=== PATIENT | male | born 1965 | race Caucasian/White ===

== ENCOUNTER 2018-05-02 11:36 | Emergency (ER) | payer OTHER ==
[2018-05-02] MEDS ORDERED: BISACODYL E.C. 5 MG TAB PO ONE (13:59)
[2018-05-02 14:20] LABS: Absolute Lymphocytes (CBC) 2.5 K/uL (0.7-4.9); Absolute Monocytes 0.6 K/uL (0.1-1.3); Absolute Neutrophil 2.9 K/uL (1.8-8.0); Basophils % 0.8 % (0-1.3); Eosinophils % 0.4 % (0-4.4); Hematocrit 30.5 % (39.6-49.0); Lymphocytes % 42.1 % (15.3-44.8); MCH 20.8 pg (27.0-35.0); MCV 68.4 fL (80-100); MPV 7.2 fL (7.6-11.3); Monocytes % 9.5 % (3.3-12.3); RBC Red Blood Cell Count 4.46 M/uL (4.33-5.43)
[2018-05-02 14:29] LABS: Potassium 3.8 mmol/L (3.5-5.1)
--- NOTE | 2018-05-02 15:15 | ER ---
Nurse's Notes [facility] Name: Kraig Weston Jr Age: 52 yrs Sex: Male : 1965 Arrival Date: 05/02/2018 Time: 11:39 Bed 23 Private MD: Diagnosis: Constipation, unspecified;Anemia, unspecified Presentation: 05/02 11:44 Presenting complaint: Sent by Dr. Wills for HBG 8.7. Also s/o Constipation x 6 days, hb N/V x 2 days, not tolerating liquids/meds today. Transition of care: patient was not received from another setting of care. Onset of symptoms was May 02, 2018. Care prior to arrival: None. 11:44 Method Of Arrival: Wheelchair hb 11:44 Acuity: JERROD 3 hb 13:00 Risk Assessment: Do you want to hurt yourself or someone else? Patient reports no ss desire to harm self or others. Initial Sepsis Screen: Does the patient meet any 2 criteria? No. Patient's initial sepsis screen is negative. Does the patient have a suspected source of infection? No. Patient's initial sepsis screen is negative. Historical: - Allergies: 11:48 No Known Allergies; hb - PMHx: 11:48 Anxiety; Cerebral Palsy; Depression; epilepsy; GERD; High Cholesterol; Hypertension; hb - PSHx: 11:48 None; hb - Immunization history:: Adult Immunizations up to date. - Social history:: Smoking status: Patient/guardian denies using tobacco. - Ebola Screening: : No symptoms or risks identified at this time. Screenin:45 Abuse screen: Denies threats or abuse. Denies injuries from another. Nutritional ss screening: No deficits noted. Tuberculosis screening: No symptoms or risk factors identified. Never had TB. Fall Risk None identified. Assessment: 13:30 General: Appears uncomfortable, Behavior is cooperative, Pt has a history of CP and ss behavior is "baseline/ normal". Pain: Pain currently is 5 out of 10 on a pain scale. Neuro: Level of Consciousness is awake, alert, obeys commands. Cardiovascular: Capillary refill < 3 seconds is brisk in bilateral toes Patient's skin is warm and dry. Respiratory: Airway is patent Respiratory effort is even, unlabored, Respiratory pattern is regular, symmetrical. GI: Bowel sounds hypoactive in right upper quadrant, left upper quadrant, right lower quadrant and left lower quadrant : No signs and/or symptoms were reported regarding the genitourinary system. EENT: Nares are clear Oral mucosa is moist. Derm: Skin is intact, is healthy with good turgor, Skin is dry, Skin is pink, warm \\T\\ dry. normal. 14:00 Reassessment: Pt had large BM in bedside commode. Caregiver at bedside, Dr. Henson notified. 15:00 Reassessment: Pt had large BM on bedside commode, cargiver remains at bedside. Vital Signs: 11:47 BP 143 / 100; Pulse 87; Resp 16; Temp 97.8; Pulse Ox 100% on R/A; Pain 3/10; hb 11:47 Ken-Boss (FACES) hb ED Course: 11:39 Patient arrived in ED. mr 11:47 Triage completed. hb 11:47 Arm band placed on. hb 12:52 Jenae Guerrier, DAMIAN is Primary Nurse. ss 13:04 Manish Henson MD is Attending Physician. kdr 13:45 Patient has correct armband on for positive identification. Bed in low position. Call ss light in reach. Adult w/ patient. 14:03 Inserted saline lock: 22 gauge in right antecubital area, using aseptic technique. ss Blood collected. 15:09 Manish Henson MD is Referral Physician. kdr 15:41 Referral Physician role handed off by Mansih Henson MD kdr 15:46 No provider procedures requiring assistance completed. intact, bleeding controlled, No ss redness/swelling at site. Pressure dressing applied. Administered Medications: 14:00 Drug: Dulcolax Delayed Release Tablet 5 mg {Note: Pt vomited medication up immediately, ss Dr. Henson notified. .} Route: PO; Outcome: 15:10 Discharge ordered by . kdr 15:46 Discharged to home via wheelchair, with family. 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 medication usage, Demonstrated understanding of instructions, follow-up care, medications, Prescriptions given X 1. 15:49 Patient left the ED. Signatures: Manish Henson MD MD kdr RiverAneta carter mr Jenae Guerrier, RN RN ss Lewis, Karie, RN RN hb
[2018-05-02 15:16] LABS: Anisocytosis 1+; Blood Morphology Comment NOTED (NOT SEEN); Hypochromasia 1+; Platelet Estimate ADEQ; Urine White Blood Cell Casts OK
--- NOTE | 2018-05-02 15:16 | EDPHYS ---
Physician Documentation [facility] Name: Kraig Weston Jr Age: 52 yrs Sex: Male : 1965 Arrival Date: 05/02/2018 Time: 11:39 Bed 23 Private MD: ED Physician Manish Henson HPI: 05/02 17:51 This 52 yrs old Male presents to ER via Wheelchair with complaints of kdr Abnormal Lab Results, Constipation, Vomiting. 17:51 Alba patient was brought here because he has not had a BM in a week or more. He also had kdr blood work recently that showed a Hgb of 8.7. He also had x-ray that showed copious stool with possible early . Onset: The symptoms/episode began/occurred at an unknown time. Severity of symptoms: At their worst the symptoms were mild in the emergency department the symptoms are unchanged. The patient has not experienced similar symptoms in the past. The patient has not recently seen a physician. Historical: - Allergies: 11:48 No Known Allergies; hb - PMHx: 11:48 Anxiety; Cerebral Palsy; Depression; epilepsy; GERD; High Cholesterol; Hypertension; hb - PSHx: 11:48 None; hb - Immunization history:: Adult Immunizations up to date. - Social history:: Smoking status: Patient/guardian denies using tobacco. - Ebola Screening: : No symptoms or risks identified at this time. ROS: 17:51 Constitutional: Negative for fever, chills, and weight loss, Eyes: Negative for injury, kdr pain, redness, and discharge, Neck: Negative for injury, pain, and swelling, Cardiovascular: Negative for chest pain, palpitations, and edema, Respiratory: Negative for shortness of breath, cough, wheezing, and pleuritic chest pain, Abdomen/GI: Negative for abdominal pain, nausea, vomiting, diarrhea, and constipation, Back: Negative for injury and pain, : Negative for injury, bleeding, discharge, and swelling, MS/Extremity: Negative for injury and deformity, Skin: Negative for injury, rash, and discoloration, Neuro: Negative for headache, weakness, numbness, tingling, and seizure activity. Psych: Negative for depression, anxiety, suicide ideation, homicidal ideation, and hallucinations, Allergy/Immunology: Negative for hives, rash, and allergies, Endocrine: Negative for neck swelling, polydipsia, polyuria, polyphagia, and marked weight changes, Hematologic/Lymphatic: Negative for swollen nodes, abnormal bleeding, and unusual bruising. Exam: 17:51 Constitutional: This is a well developed, well nourished patient who is awake, alert, kdr and in no acute distress. Head/Face: Normocephalic, atraumatic. Eyes: Pupils equal round and reactive to light, extra-ocular motions intact. Lids and lashes normal. Conjunctiva and sclera are non-icteric and not injected. Cornea within normal limits. Periorbital areas with no swelling, redness, or edema. Neck: Trachea midline, no thyromegaly or masses palpated, and no cervical lymphadenopathy. Supple, full range of motion without nuchal rigidity, or vertebral point tenderness. No Meningismus. Chest/axilla: Normal chest wall appearance and motion. Nontender with no deformity. No lesions are appreciated. Cardiovascular: Regular rate and rhythm with a normal S1 and S2. No gallops, murmurs, or rubs. Normal PMI, no JVD. No pulse deficits. Respiratory: Lungs have equal breath sounds bilaterally, clear to auscultation and percussion. No rales, rhonchi or wheezes noted. No increased work of breathing, no retractions or nasal flaring. Back: No spinal tenderness. No costovertebral tenderness. Full range of motion. Skin: Warm, dry with normal turgor. Normal color with no rashes, no lesions, and no evidence of cellulitis. MS/ Extremity: Pulses equal, no cyanosis. Neurovascular intact. Full, normal range of motion. Neuro: Awake and alert, GCS 15, oriented to person, place, time, and situation. Cranial nerves II-XII grossly intact. Motor strength 5/5 in all extremities. Sensory grossly intact. Cerebellar exam normal. Normal gait. Psych: Awake, alert, with orientation to person, place and time. Behavior, mood, and affect are within normal limits. 17:51 Abdomen/GI: Inspection: abdomen appears normal, Bowel sounds: active, Palpation: soft, nontender, Rectal exam: Prostate: normal, rectal tone normal, hemorrhoid(s), are not appreciated, mass, is not appreciated, swelling, is not appreciated, tenderness, is not appreciated, fecal impaction, that is severe. Vital Signs: 11:47 BP 143 / 100; Pulse 87; Resp 16; Temp 97.8; Pulse Ox 100% on R/A; Pain 3/10; hb 11:47 Ken-Boss (FACES) hb Procedures: 17:51 Fecal disimpaction: digital disimpaction was performed, with a moderate amount of stool kdr expressed. The patient tolerated the intervention well. MDM: 15:10 Patient medically screened. kdr 18:01 Data reviewed: vital signs, nurses notes, lab test result(s), EKG, radiologic studies. kdr 05/02 13:47 Order name: CBC with Diff kdr 05/02 13:47 Order name: Chem 7 kdr 05/02 13:47 Order name: Type And Screen; Complete Time: 15:40 kdr 05/02 13:48 Order name: CBC with Automated Diff; Complete Time: 15:40 EDMS 05/02 13:48 Order name: Basic Metabolic Panel; Complete Time: 15:09 EDMS 05/02 14:30 Order name: CBC Smear Scan; Complete Time: 15:40 EDMS 05/02 15:11 Order name: ABO/RH no charge; Complete Time: 15:40 EDMS Administered Medications: 14:00 Drug: Dulcolax Delayed Release Tablet 5 mg {Note: Pt vomited medication up immediately, ss Dr. Henson notified. .} Route: PO; Disposition: 05/02/18 15:10 Discharged to Home. Impression: Constipation, unspecified, Anemia, unspecified. - Condition is Stable. - Discharge Instructions: Anemia, Nonspecific, High-Fiber Diet, Constipation, Adult, [id number]. - Prescriptions for Miralax 17 gram/dose Oral - take 1 packet by ORAL route once daily Daily dilute powder in 8 ounces of water or juice; 1 box. - Medication Reconciliation Form, Thank You Letter form. - Follow up: Manish Henson MD; When: 24 Hours; Reason: If symptoms return, Further diagnostic work-up, Recheck today's complaints, Continuance of care, Re-evaluation by your physician. Follow up: Private Physician; When: 2 - 3 days; Reason: If symptoms return, Further diagnostic work-up, Recheck today's complaints, Continuance of care, Re-evaluation by your physician. - Problem is new. - Symptoms have improved. Signatures: Dispatcher [employer] EDMS Manish Henson MD MD kdr Jenae Guerrier, DAMIAN RN ss Karie Lewis, RN RN Corrections: (The following items were deleted from the chart) 15:41 15:10 05/02/2018 15:10 Discharged to Home. Impression: Constipation, unspecified; kdr Anemia, unspecified. Condition is Stable. Forms are Medication Reconciliation Form, Thank You Letter, Antibiotic Education, Prescription Opioid Use. Follow up: Dr. Manish Henson; When: 24 Hours; Reason: If symptoms return, Further diagnostic work-up, Recheck today's complaints, Continuance of care, Re-evaluation by your physician. Problem is new. Symptoms have improved. kdr 15:49 15:41 05/02/2018 15:10 Discharged to Home. Impression: Constipation, unspecified; ss Anemia, unspecified. Condition is Stable. Discharge Instructions: Anemia, Nonspecific, High-Fiber Diet, Constipation, Adult, [id number]. Prescriptions for Miralax 17 gram/dose Oral - take 1 packet by ORAL route once daily Daily dilute powder in 8 ounces of water or juice; 1 box. and Forms are Medication Reconciliation Form, Thank You Letter, Antibiotic Education, Prescription Opioid Use. Follow up: Private Physician; When: 2 - 3 days; Reason: If symptoms return, Further diagnostic work-up, Recheck today's complaints, Continuance of care, Re-evaluation by your physician. Problem is new. Symptoms have improved. kdr
[2018-05-02 15:17] LABS: Burr Cells 1+
== END 2018-05-02 15:49 | disposition home or self-care (01) ==
LOC: ER 11:36
DX: K59.00 Constipation, unspecified (principal); D64.9 Anemia, unspecified; G80.9 Cerebral palsy, unspecified; G40.909 Epilepsy, unspecified, not intractable, without status epilepticus; E78.00 Pure hypercholesterolemia, unspecified; I10 Essential (primary) hypertension; K21.9 Gastro-esophageal reflux disease without esophagitis; F32.9 Major depressive disorder, single episode, unspecified; F41.9 Anxiety disorder, unspecified
CPT/HCPCS: 36415; 80048; 85025; 86850; 86900; 86901; 99284

== ENCOUNTER 2018-05-09 11:25 | Emergency (ER) | payer OTHER ==
[2018-05-09] MEDS ORDERED: NA CHLORIDE 0.9% 1,000 ML ONE (13:27)
[2018-05-09] MEDS ORDERED: ONDANSETRON 4 MG/2 ML VIAL ONE (13:27)
[2018-05-09 14:02] LABS: Protime INR 1.01
[2018-05-09 14:16] LABS: Absolute Lymphocytes (CBC) 1.9 K/uL (0.7-4.9); Absolute Monocytes 0.5 K/uL (0.1-1.3); Absolute Neutrophil 2.5 K/uL (1.8-8.0); Basophils % 0.5 % (0-1.3); Eosinophils % 0.6 % (0-4.4); Hematocrit 26.2 % (39.6-49.0); Lymphocytes % 38.7 % (15.3-44.8); MCH 20.8 pg (27.0-35.0); MCV 69.1 fL (80-100); MPV 7.2 fL (7.6-11.3); Monocytes % 9.7 % (3.3-12.3); RBC Red Blood Cell Count 3.78 M/uL (4.33-5.43)
[2018-05-09 14:23] LABS: ALT/SGPT 50 U/L (12-78); AST/SGOT 22 U/L (15-37); Albumin 3.4 g/dL (3.4-5.0); Alkaline Phosphatase 113 U/L (45-117); BUN Blood Urea Nitrogen 30 mg/dL (7-18); Bicarbonate 31 mmol/L (21-32); Bilirubin Direct < 0.1 mg/dL (0-0.2); Bilirubin Total 0.1 mg/dL (0.2-1.0); Glucose Level 87 mg/dL (74-106); Lipase 131 U/L (73-393); Magnesium 2.3 mg/dL (1.8-2.4); NT PRO-BNP 56 pg/mL (<125); Potassium 3.9 mmol/L (3.5-5.1); Protein, Total 7.3 g/dL (6.4-8.2); Sodium Level 148 mmol/L (136-145); Troponin (Emerg Dept Use Only) < 0.02 ng/mL (0.0-0.045)
[2018-05-09] MEDS ORDERED: PANTOPRAZOLE 40 MG INJ ONE (14:31)
--- NOTE | 2018-05-09 14:36 | EDPHYS ---
Physician Documentation [facility] Name: Kraig Weston Jr Age: 52 yrs Sex: Male : 1965 Arrival Date: 05/09/2018 Time: 11:29 Bed 15 Private MD: out of town, doctor ED Physician Morales Roberts HPI: 05/09 13:10 This 52 yrs old Male presents to ER via Wheelchair with complaints of UNABLE satish TO EAT. Historical: - Allergies: 11:50 No Known Allergies; sv - PMHx: 11:50 Anxiety; Cerebral Palsy; Depression; epilepsy; GERD; High Cholesterol; Hypertension; sv - PSHx: 11:50 None; sv - Immunization history:: Adult Immunizations up to date. - Social history:: Smoking status: Patient/guardian denies using tobacco. - Ebola Screening: : No symptoms or risks identified at this time. - Family history:: not pertinent. ROS: 13:11 Constitutional: Negative for fever, chills, and weight loss, Eyes: Negative for injury, satish pain, redness, and discharge, ENT: Negative for injury, pain, and discharge, Neck: Negative for injury, pain, and swelling, Cardiovascular: Negative for chest pain, palpitations, and edema, Respiratory: Negative for shortness of breath, cough, wheezing, and pleuritic chest pain, Back: Negative for injury and pain, : Negative for injury, bleeding, discharge, and swelling, MS/Extremity: Negative for injury and deformity, Skin: Negative for injury, rash, and discoloration, Neuro: Negative for headache, weakness, numbness, tingling, and seizure, Psych: Negative for depression, anxiety, suicide ideation, homicidal ideation, and hallucinations, Allergy/Immunology: Negative for hives, rash, and allergies, Endocrine: Negative for neck swelling, polydipsia, polyuria, polyphagia, and marked weight changes, Hematologic/Lymphatic: Negative for swollen nodes, abnormal bleeding, and unusual bruising. 13:11 Abdomen/GI: Positive for nausea and vomiting. Exam: 13:11 Constitutional: This is a well developed, well nourished patient who is awake, alert, satish and in no acute distress. Head/Face: Normocephalic, atraumatic. Eyes: Pupils equal round and reactive to light, extra-ocular motions intact. Lids and lashes normal. Conjunctiva and sclera are non-icteric and not injected. Cornea within normal limits. Periorbital areas with no swelling, redness, or edema. ENT: Nares patent. No nasal discharge, no septal abnormalities noted. Tympanic membranes are normal and external auditory canals are clear. Oropharynx with no redness, swelling, or masses, exudates, or evidence of obstruction, uvula midline. Mucous membranes moist. Neck: Trachea midline, no thyromegaly or masses palpated, and no cervical lymphadenopathy. Supple, full range of motion without nuchal rigidity, or vertebral point tenderness. No Meningismus. Chest/axilla: Normal chest wall appearance and motion. Nontender with no deformity. No lesions are appreciated. Cardiovascular: Regular rate and rhythm with a normal S1 and S2. No gallops, murmurs, or rubs. Normal PMI, no JVD. No pulse deficits. Respiratory: Lungs have equal breath sounds bilaterally, clear to auscultation and percussion. No rales, rhonchi or wheezes noted. No increased work of breathing, no retractions or nasal flaring. Back: No spinal tenderness. No costovertebral tenderness. Full range of motion. Male : Normal genitalia with no discharge or lesions. Skin: Warm, dry with normal turgor. Normal color with no rashes, no lesions, and no evidence of cellulitis. MS/ Extremity: Pulses equal, no cyanosis. Neurovascular intact. Full, normal range of motion. Neuro: Awake and alert, GCS 15, oriented to person, place, time, and situation. Cranial nerves II-XII grossly intact. Motor strength 5/5 in all extremities. Sensory grossly intact. Cerebellar exam normal. Normal gait. Psych: Awake, alert, with orientation to person, place and time. Behavior, mood, and affect are within normal limits. 13:11 Abdomen/GI: Inspection: abdomen appears normal, Bowel sounds: normal, Palpation: soft, nontender, Liver: no appreciated palpable abnormalities, Hernia: not appreciated. 14:38 Abdomen/GI: Rectal exam: rectal tone normal, Stool: guaiac positive, hemorrhoid(s), are satish not appreciated, mass, is not appreciated, swelling, is not appreciated, tenderness, is not appreciated, the exam is chaperoned by a family member. Vital Signs: 11:50 BP 119 / 68; Pulse 90; Resp 18; Temp 98.8; Pulse Ox 100% ; sv 12:21 Weight 51.26 kg; em 12:30 BP 105 / 90; Pulse 70; Resp 19; Pulse Ox 99% on R/A; Pain 0/10; em 14:05 BP 107 / 65; Pulse 61; Resp 18; Pulse Ox 100% on R/A; em 15:00 BP 112 / 68; Pulse 67; Resp 18; Pulse Ox 99% on R/A; em 16:15 BP 101 / 71; Pulse 73; Resp 16; Pulse Ox 100% on R/A; em 17:00 BP 109 / 62; Pulse 68; Resp 18; Pulse Ox 98% on R/A; em 18:27 BP 124 / 78; Pulse 79; Resp 16; Pulse Ox 99% on R/A; em MDM: 12:20 Patient medically screened. [facility] 13:12 Data reviewed: vital signs, nurses notes, lab test result(s), EKG, radiologic studies, satish plain films. 05/09 13:09 Order name: Basic Metabolic Panel; Complete Time: 14:24 [facility] 05/09 13:09 Order name: CBC with Diff; Complete Time: 15:03 [facility] 05/09 13:09 Order name: LFT's; Complete Time: 14:24 [facility] 05/09 13:09 Order name: Magnesium; Complete Time: 14:24 [facility] 05/09 13:09 Order name: NT PRO-BNP; Complete Time: 14:24 [facility] 05/09 13:09 Order name: PT-INR; Complete Time: 14:24 [facility] 05/09 13:09 Order name: Troponin (emerg Dept Use Only); Complete Time: 14:24 [facility] 05/09 13:09 Order name: Lipase; Complete Time: 14:24 [facility] 05/09 13:09 Order name: Abdomen Acute Series XRAY; Complete Time: 15:13 satish 05/09 13:13 Order name: Procalcitonin [facility] 05/09 14:20 Order name: CBC Smear Scan; Complete Time: 15:03 EDMS 05/09 14:34 Order name: Occult Blood--Ancillary bd 05/09 13:09 Order name: EKG; Complete Time: 13:10 [facility] 05/09 13:09 Order name: Cardiac monitoring; Complete Time: 15:49 [facility] 05/09 13:09 Order name: EKG - Nurse/Tech; Complete Time: 15:49 [facility] 05/09 13:09 Order name: IV Saline Lock; Complete Time: 15:49 [facility] 05/09 13:09 Order name: Labs collected and sent; Complete Time: 15:49 [facility] 05/09 13:09 Order name: O2 Per Protocol; Complete Time: 15:49 [facility] 05/09 13:09 Order name: O2 Sat Monitoring; Complete Time: 15:49 [facility] Administered Medications: 13:53 Drug: NS 0.9% 1000 ml Route: IV; Rate: 1 bolus; Site: left antecubital; em 15:40 Follow up: IV Status: Completed infusion; IV Intake: 1000ml em 14:59 Drug: ProTONIX 40 mg Route: IVP; Site: left antecubital; hb 15:47 Follow up: Response: No adverse reaction em 16:47 Not Given (Physician Discretion): Zofran 4 mg IVP once; over 2 minutes ss Disposition: 05/09/18 14:35 Transfer ordered to [facility]. Diagnosis are Vomiting, Anemia, unspecified, Gastrointestinal hemorrhage, unspecified. - Reason for transfer: Higher level of care. - Accepting physician is to [facility]. - Condition is Fair. - Problem is new. - Symptoms have improved. Signatures: Dispatcher [employer] Michelle Bran, RN RN Morales Mercado MD MD cha Munoz, Edgar, LIABILITY CLAIMS ADJUSTER LIABILITY CLAIMS ADJUSTER em Karie Lewis RN RN hb Smirch, Shelby RN ss Corrections: (The following items were deleted from the chart) 18:29 14:35 05/09/2018 14:35 Transfer ordered to [facility]. Diagnosis is em Vomiting; Anemia, unspecified; Gastrointestinal hemorrhage, unspecified. Reason for transfer: Higher level of care. Accepting physician is to [facility]. Condition is Fair. Problem is new. Symptoms have improved. satish
--- NOTE | 2018-05-09 14:36 | ER ---
Nurse's Notes [facility] Name: Kraig Wseton Jr Age: 52 yrs Sex: Male : 1965 Arrival Date: 05/09/2018 Time: 11:29 Bed 15 Private MD: out of town, doctor Diagnosis: Vomiting;Anemia, unspecified;Gastrointestinal hemorrhage, unspecified Presentation: 05/09 11:49 Presenting complaint: Sister in law states that the pt has been unable to eat for a sv week. Pt was recently seen here last week for constipation. Transition of care: patient was not received from another setting of care. Onset of symptoms was May 02, 2018. Care prior to arrival: None. 11:49 Method Of Arrival: Wheelchair sv 11:49 Acuity: JERROD 3 sv 12:30 Risk Assessment: Do you want to hurt yourself or someone else? Unable to obtain. em Initial Sepsis Screen: Does the patient meet any 2 criteria? No. Patient's initial sepsis screen is negative. Does the patient have a suspected source of infection? No. Patient's initial sepsis screen is negative. Triage Assessment: 11:49 General: Appears in no apparent distress. Behavior is calm, cooperative. Neuro: Level sv of Consciousness is awake, alert, obeys commands. Respiratory: Respiratory effort is even, unlabored, Respiratory pattern is regular, symmetrical. Historical: - Allergies: 11:50 No Known Allergies; sv - PMHx: 11:50 Anxiety; Cerebral Palsy; Depression; epilepsy; GERD; High Cholesterol; Hypertension; sv - PSHx: 11:50 None; sv - Immunization history:: Adult Immunizations up to date. - Social history:: Smoking status: Patient/guardian denies using tobacco. - Ebola Screening: : No symptoms or risks identified at this time. - Family history:: not pertinent. Screenin:30 Abuse screen: no apparent signs noted. Nutritional screening: No deficits noted. em Tuberculosis screening: No symptoms or risk factors identified. Fall Risk None identified. Assessment: 12:30 General: Appears comfortable, Behavior is calm, cooperative. Pain: Unable to use pain em scale. FLACC scale score is 0 out of 10. Neuro: Level of Consciousness is awake, alert, obeys commands. Neuro: Speech pt unable to communicate. Cardiovascular: Reports since chest pain by pointing at chest, healthcare network pricing consultant reports a recent cardiac stress test Capillary refill < 3 seconds Patient's skin is warm and dry. Rhythm is sinus rhythm. Respiratory: Airway is patent Respiratory effort is even, unlabored, Respiratory pattern is regular, symmetrical. GI: Abdomen is flat, Parent/caregiver reports the patient having nausea, vomiting. : No signs and/or symptoms were reported regarding the genitourinary system. EENT: No signs and/or symptoms were reported regarding the EENT system. Derm: Skin is intact, is healthy with good turgor, Skin is pink, warm \T\ dry. Musculoskeletal: Capillary refill < 3 seconds, Range of motion: intact in all extremities. 12:35 Reassessment: The previous assessment is accurate, call light remains within reach. ss Caregiver at bedside. 13:33 Reassessment: Patient appears in no apparent distress at this time. Patient and/or em family updated on plan of care and expected duration. Pain level reassessed. Patient is alert, oriented x 3, equal unlabored respirations, skin warm/dry/pink. 14:00 Reassessment: caregiver reports pt is able to drink fluids but as soon as food is in pt em mouth, pt will become nauseated and vomit, currently caregiver does not want medication for nausea, provider notified, will continue to monitor. 15:00 Reassessment: Patient appears in no apparent distress at this time. Patient and/or em family updated on plan of care and expected duration. Pain level reassessed. Patient is alert, oriented x 3, equal unlabored respirations, skin warm/dry/pink. Dr. Roberts at bedside. 16:12 Reassessment: Patient appears in no apparent distress at this time. Patient and/or em family updated on plan of care and expected duration. Pain level reassessed. Patient is alert, oriented x 3, equal unlabored respirations, skin warm/dry/pink. caregiver reports pt is feeling better Patient states symptoms have improved. 16:28 Reassessment: called report to DAMIAN Shah at [facility], pending transportation. em 17:20 Reassessment: Patient appears in no apparent distress at this time. Patient and/or em family updated on plan of care and expected duration. Pain level reassessed. Patient is alert, oriented x 3, equal unlabored respirations, skin warm/dry/pink. assisted pt with urinal. 18:21 Reassessment: Patient appears in no apparent distress at this time. Patient and/or em family updated on plan of care and expected duration. Pain level reassessed. Patient is alert, oriented x 3, equal unlabored respirations, skin warm/dry/pink. report given to [facility]. Vital Signs: 11:50 BP 119 / 68; Pulse 90; Resp 18; Temp 98.8; Pulse Ox 100% ; sv 12:21 Weight 51.26 kg; em 12:30 BP 105 / 90; Pulse 70; Resp 19; Pulse Ox 99% on R/A; Pain 0/10; em 14:05 BP 107 / 65; Pulse 61; Resp 18; Pulse Ox 100% on R/A; em 15:00 BP 112 / 68; Pulse 67; Resp 18; Pulse Ox 99% on R/A; em 16:15 BP 101 / 71; Pulse 73; Resp 16; Pulse Ox 100% on R/A; em 17:00 BP 109 / 62; Pulse 68; Resp 18; Pulse Ox 98% on R/A; em 18:27 BP 124 / 78; Pulse 79; Resp 16; Pulse Ox 99% on R/A; em ED Course: 11:29 Patient arrived in ED. sb2 11:29 out of town, doctor is Private Physician. sb2 11:49 Triage completed. sv 11:53 Arm band placed on. sv 11:56 Corky Subramanian LVN is Primary Nurse. em 12:20 Morales Roberts MD is Attending Physician. satish 13:51 Patient has correct armband on for positive identification. Bed in low position. Call mh5 light in reach. Side rails up X2. Adult w/ patient. Warm blanket given. Pillow given. Pulse ox on. NIBP on. 13:51 Initial lab(s) drawn, by me, sent to lab. Inserted saline lock: 20 gauge in left mh5 antecubital area, using aseptic technique. Blood collected. 14:02 EKG done, by lead quality technician. reviewed by Morales Roberts MD. sm3 14:48 Abdomen Acute Series XRAY In Process Unspecified. EDMS 18:25 No provider procedures requiring assistance completed. Patient transferred, IV remains em in place. Administered Medications: 13:53 Drug: NS 0.9% 1000 ml Route: IV; Rate: 1 bolus; Site: left antecubital; em 15:40 Follow up: IV Status: Completed infusion; IV Intake: 1000ml em 14:59 Drug: ProTONIX 40 mg Route: IVP; Site: left antecubital; hb 15:47 Follow up: Response: No adverse reaction em 16:47 Not Given (Physician Discretion): Zofran 4 mg IVP once; over 2 minutes ss Intake: 15:40 IV: 1000ml; Total: 1000ml. em Outcome: 14:35 ER care complete, transfer ordered by . [facility] 18:25 Transferred by helicopter to [facility], [facility] [place] form completed. em X-rays sent w/ patient. 18:25 Condition: good 18:25 Instructed on the need for admit, Demonstrated understanding of instructions. 18:29 Patient left the ED. em Signatures: Dispatcher [employer] Michelle Bran RN RN sv Anderson, Corey, MD MD cha Munoz, Corky, FERRY HAND FERRY HAND em Jenae Guerrier RN RN ss Baxter, Heather, RN RN hb Martinez, Maria 5 Tg Zaragoza2 Tracey Zheng 3 Corrections: (The following items were deleted from the chart) 14:05 12:30 Initial Sepsis Screen: Does the patient meet any 2 criteria? RR > 20 per min. No. em Patient's initial sepsis screen is negative. Does the patient have a suspected source of infection? Yes: Skin breakdown/wound em 14:05 12:30 Risk Assessment: Do you want to hurt yourself or someone else? Patient reports no em desire to harm self or others. em
[2018-05-09 14:40] LABS: Anisocytosis 1+; Blood Morphology Comment NOTED (NOT SEEN); Burr Cells FEW; Hypochromasia 1+; Platelet Estimate ADEQ; Polychromasia SLIGHT; Urine White Blood Cell Casts OK
--- NOTE | 2018-05-09 15:09 | RAD REPORT ---
EXAM DESCRIPTION: RAD - Abdomen Acute Series - 05/09/2018 2:47 pm CLINICAL HISTORY: Shortness of breath, abdominal pain, nausea and vomiting COMPARISON: Chest exam July 01, KUB April 30 FINDINGS: Lungs are clear. Heart size and pulmonary vasculature are normal. No pleural effusion, pne umothorax or other acute cardiopulmonary process seen. No significant change to the chest since jazmín comparison. Abdomen views are degraded by motion. Prominent colon pattern is present. Stool volume is minimal and substantially diminished compared to April 30. No bowel obstruction, free air or other acute findi ngs. No suspicious calcifications. No other suspicious for significant findings. IMPRESSION: No acute chest finding. Stool volume seen April 30 has been substantially cleared. Air-filled, prominent colon is seen with out dilation. No small bowel obstruction, free air or emergent finding noted.
--- NOTE | 2018-05-09 22:10 | EKG ---
Test Date: 2018-05-09 Test Time: 13:34:39 Assistant Men'S Lacrosse Coach: DESHAUN MEASUREMENT RESULTS: Intervals: Rate: 68 VT: 136 QRSD: 82 QT: 434 QTc: 461 [place]: P: 64 VT: 136 QRS: 87 T: 66 INTERPRETIVE STATEMENTS: Normal sinus rhythm Normal ECG Compared to ECG 03/11/2015 06:47:44 No significant changes Electronically Signed On 05-09-18 22:09:54 CATHOLIC PRIEST by Dutch Barriga
== END 2018-05-09 18:29 | disposition short-term general hospital (02) ==
LOC: ER 11:25
DX: D64.9 Anemia, unspecified (principal); K92.2 Gastrointestinal hemorrhage, unspecified; I10 Essential (primary) hypertension; G80.9 Cerebral palsy, unspecified
CPT/HCPCS: 36415; 74022; 80048; 80076; 82272; 83690; 83735; 83880; 84145; 84484; 85025; 85610; 93005; 96361; 96374; 99285; C9113; J7030; J2405

== ENCOUNTER 2018-06-17 15:00 | Emergency (ER) | payer OTHER ==
--- OUTSIDE RECORDS SUMMARY | 2018-06-17 15:03 | XMS REPORT | Clinical Summary ---
:1965 Author Organization [facility] Address [address] [place] [address] Care Team Providers Name Role Phone Pcp, No Primary Care Provider Unavailable Allergies No Known Allergies Medications Medication Sig Dispensed Refills Start End Date Status Date escitalopram Take 20 mg by 0 Active oxalate (LEXAPRO) mouth every 20 MG tablet morning. cetirizine Take 10 mg by 0 Active (ZYRTEC) 10 MG mouth daily as tablet needed for Allergies. pantoprazole Take 40 mg by 0 Active (PROTONIX) 40 MG mouth daily. tablet risperiDONE Take 2 mg by 0 Active (RISPERDAL) 2 MG mouth every night tablet as needed (agitation). zonisamide Take 600 mg by 0 Active (ZONEGRAN) 100 MG mouth nightly . capsule ergocalciferol, Take by mouth. 0 Active vitamin D2, (VITAMIN D2 ORAL) docosahexanoic Take by mouth. 0 Active acid/epa (FISH OIL ORAL) ertapenem (INVANZ) Inject 1 g 1 each 0 07/11/19 Active 1 gram injection intravenously 9 daily for 30 days. gabapentin Take 1 capsule 90 capsule 0 06/11/19 Active (NEURONTIN) 100 MG (100 mg total) by 9 20 capsule mouth 3 (three) times daily. levETIRAcetam Take 1 tablet 60 tablet 0 06/11/19 Active (KEPPRA) 500 MG (500 mg total) by 9 20 tablet mouth 2 (two) times daily. mICAFUNGin 100 mg Inject 100 mg 0 07/11/19 Active in NS 0.9% 100 mL intravenously 9 19 (V2B) IVPB daily for 30 days. psyllium Take 1 packet by 90 each 0 06/11/19 Active (METAMUCIL mouth 3 (three) 9 20 SUGAR-FREE) 3.4 times daily. gram packet traMADol (ULTRAM) Take 1 tablet (50 30 tablet 0 Active 50 mg tablet mg total) by 9 mouth every 6 (six) hours as needed for Pain. Max Daily Amount: 200 mg loperamide Take 2 capsules 120 capsule 0 Active (IMODIUM) 2 mg (4 mg total) by 9 capsule mouth 3 (three) times daily. magnesium oxide Take 1 tablet 60 tablet 0 06/12/19 Active (MAG-OX) 400 mg (400 mg total) by 9 20 (241.3 mg mouth 2 (two) magnesium) tablet times daily. lamoTRIgine Take 150 mg by 0 06/11/19 Discontinued (LAMICTAL) 150 MG mouth 2 (two) 19 tablet times daily. OXcarbazepine Take 300 mg by 0 06/11/19 Discontinued (TRILEPTAL) 300 MG mouth 2 (two) 19 tablet times daily. traMADol (ULTRAM) Take 50 mg by 0 06/11/19 Discontinued 50 mg tablet mouth every 6 19 (six) hours as needed for Pain. Active Problems Problem Noted Date Leukocytosis 06/02/2018 Acute blood loss anemia 06/02/2018 Hypomagnesemia 06/02/2018 Hypophosphatemia 06/02/2018 Urethral trauma 06/01/2018 Hematuria 05/31/2018 Oliguria 05/31/2018 S/P ileostomy 05/28/2018 Bowel perforation 05/28/2018 Cerebral palsy 05/28/2018 Seizure disorder 05/28/2018 Melena 05/09/2018 Dysphagia 05/09/2018 Encounters Date Type Specialty Care Team Description 06/12/2018 Orders Only Infectious Diseases Elroy Sultana 05/29/2018 Anesthesia Event Chuckie Pollack, ZOEY 05/29/2018 Surgery Nicholas, CYSTOSCOPY MD Cheo 05/27/2018 Anesthesia Event Lisette Sewell, ZOEY 05/27/2018 Surgery Donovan Lemons LAPAROTOMY,EXPLORATO MD MUKESH Us 05/17/2018 Orders Only General Internal Medicine 05/15/2018 Anesthesia Event Marcia Salas, ZOEY 05/15/2018 Surgery Caryn, COLECTOMY,RIGHT Jose Luis Zepeda MD 05/12/2018 Anesthesia Event Gastroenterology Adriana Centeno, ZOEY 05/12/2018 Surgery Gastroenterology Thee Arrington MD ENDOSCOPY,BIOPSY 05/09/2018 Hospital Intensive Care [place], Dysphagia, unspecified type ; - Encounter MD Jimmy Melena; 06/12/2018 Charity Alcantara Spastic quadriplegic cerebral palsy (HCC); Vanessa Seizure disorder ([facility]); MD Gene Hematochezia; Cristina Toscano Iron deficiency anemia due to chronic blood loss; MD Tanna Non-intractable cyclical vomiting with nausea; Vcitor Mreya, Colon adenocarcinoma ([facility]); Pietro Holden MD Sepsis, due to unspecified organism ([facility]); Howie Acute respiratory failure with hypoxia ([facility]); , Dalia, Severe hypoxemia; Sinus tachycardia; Changeluisa, Hypotension, unspecified hypotension type; Ashley Andrea MD Ileus ([facility]); Eddi, Moderate malnutrition (HCC); Yovana Zimmerman, Fever and chills; Leukocytosis, unspecified type; Intestinal perforation (HCC); Oliguria; Acute postoperative pain; Laceration of urethra, initial encounter; Hyperglycemia; Acute pulmonary edema (HCC); Acute blood loss anemia; Intra-abdominal abscess (HCC); Cerebral palsy, unspecified type (HCC); Hypomagnesemia; Hypophosphatemia; Bowel perforation (HCC); S/P ileostomy (HCC); Trauma of urethra, sequela; Severe protein-calorie malnutrition (Mi: less than 60% of standard weight) ([facility]); Anemia, blood loss; Essential hypertension 05/09/2018 Travel after 06/16/2017 Family History Medical History Relation Name Comments Unremarkable Neg Hx Social History Tobacco Use Types Packs/Day Years Used Date Never Smoker Smokeless Tobacco: Never Used Alcohol Use Drinks/Week oz/Week Comments No Alcohol Habits Answer Date Recorded How often do you have a drink containing alcohol? Never 05/09/2018 How many drinks containing alcohol do you have on a typical Not asked day when you are drinking? How often do you have six or more drinks on one occasion? Not asked Sex Assigned at Date Recorded Not on file Job Start Date Occupation Industry Not on file Not on file Not on file Travel History Travel Start Travel End No recent travel history available. Last Filed Vital Signs Vital Sign Reading Time Taken Blood Pressure 102/54 06/12/2018 8:00 AM [employer] Pulse 83 06/12/2018 10:00 AM [employer] Temperature 36.4 C (97.6 F) 06/12/2018 8:00 AM [employer] Respiratory Rate 15 06/12/2018 10:00 AM [employer] Oxygen Saturation 97% 06/12/2018 10:00 AM [employer] Inhaled Oxygen Concentration 21% 06/03/2018 1:07 PM [employer] Weight 56.5 kg (124 lb 9.6 oz) 06/12/2018 5:00 AM [employer] Height 144.8 cm (4' 9") 05/10/2018 6:00 AM [employer] Body Mass Index 26.96 06/12/2018 5:00 AM [employer] Plan of Treatment Not on file Procedures Procedure Name Priority Date/Time Associated Comments Diagnosis POCT-GLUCOSE METER Routine 06/12/2018 11:40 Results for this AM [employer] procedure are in the results section. POCT-GLUCOSE METER Routine 06/12/2018 5:50 Results for this AM [employer] procedure are in the results section. MAGNESIUM Routine 06/12/2018 4:53 Results for this AM [employer] procedure are in the results section. CBC (HEMOGRAM ONLY) Routine 06/12/2018 4:53 Results for this AM [employer] procedure are in the results section. BASIC METABOLIC PANEL Routine 06/12/2018 4:53 Results for this (7) AM [employer] procedure are in the results section. PHOSPHORUS Routine 06/12/2018 4:53 Results for this AM [employer] procedure are in the results section. POCT-GLUCOSE METER Routine 06/11/2018 11:31 Results for this PM [employer] procedure are in the results section. POCT-GLUCOSE METER Routine 06/11/2018 5:38 Results for this PM [employer] procedure are in the results section. POCT-GLUCOSE METER Routine 06/11/2018 11:53 Results for this AM [employer] procedure are in the results section. TRIGLYCERIDES Routine 06/11/2018 4:19 Results for this AM [employer] procedure are in the results section. PREALBUMIN Routine 06/11/2018 4:19 Results for this AM [employer] procedure are in the results section. HEPATIC FUNCTION PANEL Routine 06/11/2018 4:19 Results for this AM [employer] procedure are in the results section. MAGNESIUM Routine 06/11/2018 4:19 Results for this AM [employer] procedure are in the results section. CBC (HEMOGRAM ONLY) Routine 06/11/2018 4:19 Results for this AM [employer] procedure are in the results section. BASIC METABOLIC PANEL Routine 06/11/2018 4:19 Results for this (7) AM [employer] procedure are in the results section. PHOSPHORUS Routine 06/11/2018 4:19 Results for this AM [employer] procedure are in the results section. C-REACTIVE PROTEIN Routine 06/11/2018 4:19 Results for this AM [employer] procedure are in the results section. MAGNESIUM Routine 06/10/2018 5:33 Results for this AM [employer] procedure are in the results section. CBC (HEMOGRAM ONLY) Routine 06/10/2018 5:33 Results for this AM [employer] procedure are in the results section. BASIC METABOLIC PANEL Routine 06/10/2018 5:33 Results for this (7) AM [employer] procedure are in the results section. PHOSPHORUS Routine 06/10/2018 5:33 Results for this AM [employer] procedure are in the results section. CT ABDOMEN/PELVIS WITH Routine 06/09/2018 3:28 Results for this IV CONTRAST PM [employer] procedure are in the results section. XR CHEST 1 VIEW Routine 06/09/2018 8:41 Results for this PORTABLE/BEDSIDE AM [employer] procedure are in the results section. POCT-GLUCOSE METER Routine 06/09/2018 5:47 Results for this AM [employer] procedure are in the results section. MAGNESIUM Routine 06/09/2018 4:22 Results for this AM [employer] procedure are in the results section. CBC (HEMOGRAM ONLY) Routine 06/09/2018 4:22 Results for this AM [employer] procedure are in the results section. BASIC METABOLIC PANEL Routine 06/09/2018 4:22 Results for this (7) AM [employer] procedure are in the results section. PHOSPHORUS Routine 06/09/2018 4:22 Results for this AM [employer] procedure are in the results section. POCT-GLUCOSE METER Routine 06/09/2018 12:01 Results for this AM [employer] procedure are in the results section. POCT-GLUCOSE METER Routine 06/08/2018 6:11 Results for this PM [employer] procedure are in the results section. POCT-GLUCOSE METER Routine 06/08/2018 12:24 Results for this PM [employer] procedure are in the results section. MAGNESIUM Routine 06/08/2018 4:03 Results for this AM [employer] procedure are in the results section. CBC (HEMOGRAM ONLY) Routine 06/08/2018 4:03 Results for this AM [employer] procedure are in the results section. BASIC METABOLIC PANEL Routine 06/08/2018 4:03 Results for this (7) AM [employer] procedure are in the results section. PHOSPHORUS Routine 06/08/2018 4:03 Results for this AM [employer] procedure are in the results section. POCT-GLUCOSE METER Routine 06/07/2018 9:31 Results for this PM [employer] procedure are in the results section. POCT-GLUCOSE METER Routine 06/07/2018 4:07 Results for this PM [employer] procedure are in the results section. MAGNESIUM Routine 06/07/2018 4:43 Results for this AM [employer] procedure are in the results section. CBC (HEMOGRAM ONLY) Routine 06/07/2018 4:43 Results for this AM [employer] procedure are in the results section. BASIC METABOLIC PANEL Routine 06/07/2018 4:43 Results for this (7) AM [employer] procedure are in the results section. PHOSPHORUS Routine 06/07/2018 4:43 Results for this AM [employer] procedure are in the results section. POCT-GLUCOSE METER Routine 06/06/2018 11:50 Results for this PM [employer] procedure are in the results section. POCT-GLUCOSE METER Routine 06/06/2018 5:56 Results for this PM [employer] procedure are in the results section. POCT-GLUCOSE METER Routine 06/06/2018 12:05 Results for this PM [employer] procedure are in the results section. POCT-GLUCOSE METER Routine 06/06/2018 5:48 Results for this AM [employer] procedure are in the results section. HEPATIC FUNCTION PANEL Add-On 06/06/2018 5:02 Results for this AM [employer] procedure are in the results section. MAGNESIUM Routine 06/06/2018 5:02 Results for this AM [employer] procedure are in the results section. CBC (HEMOGRAM ONLY) Routine 06/06/2018 5:02 Results for this AM [employer] procedure are in the results section. BASIC METABOLIC PANEL Routine 06/06/2018 5:02 Results for this (7) AM [employer] procedure are in the results section. PHOSPHORUS Routine 06/06/2018 5:02 Results for this AM [employer] procedure are in the results section. POCT-GLUCOSE METER Routine 06/05/2018 11:57 Results for this PM [employer] procedure are in the results section. POCT-GLUCOSE METER Routine 06/05/2018 5:47 Results for this PM [employer] procedure are in the results section. XR ESOPH SWALLOW Routine 06/05/2018 1:30 Results for this FUNCTION W/CINE VIDEO PM [employer] procedure are in the results section. POCT-GLUCOSE METER Routine 06/05/2018 6:17 Results for this AM [employer] procedure are in the results section. MAGNESIUM Routine 06/05/2018 3:37 Results for this AM [employer] procedure are in the results section. CBC (HEMOGRAM ONLY) Routine 06/05/2018 3:37 Results for this AM [employer] procedure are in the results section. BASIC METABOLIC PANEL Routine 06/05/2018 3:37 Results for this (7) AM [employer] procedure are in the results section. PHOSPHORUS Routine 06/05/2018 3:37 Results for this AM [employer] procedure are in the results section. POCT-GLUCOSE METER Routine 06/04/2018 11:58 Results for this PM [employer] procedure are in the results section. POCT-GLUCOSE METER Routine 06/04/2018 7:28 Results for this PM [employer] procedure are in the results section. POCT-GLUCOSE METER Routine 06/04/2018 12:22 Results for this PM [employer] procedure are in the results section. POCT-GLUCOSE METER Routine 06/04/2018 6:00 Results for this AM [employer] procedure are in the results section. TRIGLYCERIDES Routine 06/04/2018 3:58 Results for this AM [employer] procedure are in the results section. PREALBUMIN Routine 06/04/2018 3:58 Results for this AM [employer] procedure are in the results section. HEPATIC FUNCTION PANEL Routine 06/04/2018 3:58 Results for this AM [employer] procedure are in the results section. MAGNESIUM Routine 06/04/2018 3:58 Results for this AM [employer] procedure are in the results section. CBC (HEMOGRAM ONLY) Routine 06/04/2018 3:58 Results for this AM [employer] procedure are in the results section. BASIC METABOLIC PANEL Routine 06/04/2018 3:58 Results for this (7) AM [employer] procedure are in the results section. PHOSPHORUS Routine 06/04/2018 3:58 Results for this AM [employer] procedure are in the results section. C-REACTIVE PROTEIN Routine 06/04/2018 3:58 Results for this AM [employer] procedure are in the results section. POCT-GLUCOSE METER Routine 06/04/2018 12:30 Results for this AM [employer] procedure are in the results section. POCT-GLUCOSE METER Routine 06/03/2018 5:46 Results for this PM [employer] procedure are in the results section. HEPATIC FUNCTION PANEL Routine 06/03/2018 12:03 Results for this PM [employer] procedure are in the results section. POCT-GLUCOSE METER Routine 06/03/2018 11:51 Results for this AM [employer] procedure are in the results section. POCT-GLUCOSE METER Routine 06/03/2018 6:01 Results for this AM [employer] procedure are in the results section. MAGNESIUM Routine 06/03/2018 3:51 Results for this AM [employer] procedure are in the results section. CBC (HEMOGRAM ONLY) Routine 06/03/2018 3:51 Results for this AM [employer] procedure are in the results section. BASIC METABOLIC PANEL Routine 06/03/2018 3:51 Results for this (7) AM [employer] procedure are in the results section. PHOSPHORUS Routine 06/03/2018 3:51 Results for this AM [employer] procedure are in the results section. POCT-GLUCOSE METER Routine 06/03/2018 12:28 Results for this AM [employer] procedure are in the results section. POCT-GLUCOSE METER Routine 06/02/2018 7:29 Results for this PM [employer] procedure are in the results section. CT DRAINAGE W CATH Routine 06/02/2018 6:15 Results for this PLACEMENT PM [employer] procedure are in the results section. BODY FLUID CULTURE + Routine 06/02/2018 6:03 Results for this GRAM STAIN PM [employer] procedure are in the results section. POCT-GLUCOSE METER Routine 06/02/2018 12:54 Results for this PM [employer] procedure are in the results section. POCT-GLUCOSE METER Routine 06/02/2018 5:55 Results for this AM [employer] procedure are in the results section. PROTHROMBIN TIME/INR Routine 06/02/2018 3:29 Results for this AM [employer] procedure are in the results section. PT/APTT Routine 06/02/2018 3:29 Results for this AM [employer] procedure are in the results section. MAGNESIUM Routine 06/02/2018 3:29 Results for this AM [employer] procedure are in the results section. CBC (HEMOGRAM ONLY) Routine 06/02/2018 3:29 Results for this AM [employer] procedure are in the results section. BASIC METABOLIC PANEL Routine 06/02/2018 3:29 Results for this (7) AM [employer] procedure are in the results section. PHOSPHORUS Routine 06/02/2018 3:29 Results for this AM [employer] procedure are in the results section. POCT-GLUCOSE METER Routine 06/02/2018 12:15 Results for this AM [employer] procedure are in the results section. POCT-GLUCOSE METER Routine 06/01/2018 7:08 Results for this PM [employer] procedure are in the results section. XR CHEST 1 VIEW Routine 06/01/2018 3:55 Results for this PORTABLE/BEDSIDE PM [employer] procedure are in the results section. CT ABDOMEN/PELVIS WITH STAT 06/01/2018 1:33 Results for this IV CONTRAST PM [employer] procedure are in the results section. POCT-GLUCOSE METER Routine 06/01/2018 12:03 Results for this PM [employer] procedure are in the results section. POCT-GLUCOSE METER Routine 06/01/2018 6:36 Results for this AM [employer] procedure are in the results section. MAGNESIUM Routine 06/01/2018 4:18 Results for this AM [employer] procedure are in the results section. CBC (HEMOGRAM ONLY) Routine 06/01/2018 4:18 Results for this AM [employer] procedure are in the results section. BASIC METABOLIC PANEL Routine 06/01/2018 4:18 Results for this (7) AM [employer] procedure are in the results section. PHOSPHORUS Routine 06/01/2018 4:18 Results for this AM [employer] procedure are in the results section. POCT-GLUCOSE METER Routine 05/31/2018 11:58 Results for this PM [employer] procedure are in the results section. POCT-GLUCOSE METER Routine 05/31/2018 6:10 Results for this AM [employer] procedure are in the results section. XR CHEST 1 VIEW Routine 05/31/2018 5:06 Results for this PORTABLE/BEDSIDE AM [employer] procedure are in the results section. MAGNESIUM Routine 05/31/2018 5:00 Results for this AM [employer] procedure are in the results section. BASIC METABOLIC PANEL Routine 05/31/2018 5:00 Results for this (7) AM [employer] procedure are in the results section. PHOSPHORUS Routine 05/31/2018 5:00 Results for this AM [employer] procedure are in the results section. CBC (HEMOGRAM ONLY) Routine 05/31/2018 3:52 Results for this AM [employer] procedure are in the results section. POCT-GLUCOSE METER Routine 05/30/2018 11:54 Results for this PM [employer] procedure are in the results section. HEMOGLOBIN AND Routine 05/30/2018 10:45 Results for this HEMATOCRIT PM [employer] procedure are in the results section. HEMOGLOBIN AND Routine 05/30/2018 7:06 Results for this HEMATOCRIT PM [employer] procedure are in the results section. TRANSFUSION SERVICE 05/30/2018 5:51 REPORT - SCAN PM [employer] BASIC METABOLIC PANEL STAT 05/30/2018 1:04 Results for this (7) PM [employer] procedure are in the results section. HEMOGLOBIN AND Routine 05/30/2018 1:04 Results for this HEMATOCRIT PM [employer] procedure are in the results section. POCT-GLUCOSE METER Routine 05/30/2018 12:17 Results for this PM [employer] procedure are in the results section. 2D ECHO W/ DOPPLER Routine 05/30/2018 9:45 Results for this (CW/PW/COLOR) AM [employer] procedure are in the results section. POCT-GLUCOSE METER Routine 05/30/2018 5:50 Results for this AM [employer] procedure are in the results section. BLOOD GAS, ARTERIAL Routine 05/30/2018 3:18 Results for this AM [employer] procedure are in the results section. MAGNESIUM Routine 05/30/2018 3:17 Results for this AM [employer] procedure are in the results section. CBC (HEMOGRAM ONLY) Routine 05/30/2018 3:17 Results for this AM [employer] procedure are in the results section. BASIC METABOLIC PANEL Routine 05/30/2018 3:17 Results for this (7) AM [employer] procedure are in the results section. PHOSPHORUS Routine 05/30/2018 3:17 Results for this AM [employer] procedure are in the results section. POCT-GLUCOSE METER Routine 05/30/2018 12:17 Results for this AM [employer] procedure are in the results section. POCT-GLUCOSE METER Routine 05/30/2018 12:08 Results for this AM [employer] procedure are in the results section. PREPARE LEUKO-REDUCED Routine 05/29/2018 11:54 Results for this RBC PM [employer] procedure are in the results section. PREPARE LEUKO-REDUCED STAT 05/29/2018 11:54 Results for this RBC PM [employer] procedure are in the results section. HEMOGLOBIN AND Routine 05/29/2018 10:50 Results for this HEMATOCRIT PM [employer] procedure are in the results section. XR CHEST 1 VIEW Routine 05/29/2018 8:25 Results for this PORTABLE/BEDSIDE PM [employer] procedure are in the results section. CBC W/PLT COUNT & AUTO Routine 05/29/2018 7:44 Results for this DIFFERENTIAL PM [employer] procedure are in the results section. PHOSPHORUS Routine 05/29/2018 7:44 Results for this PM [employer] procedure are in the results section. MAGNESIUM Routine 05/29/2018 7:44 Results for this PM [employer] procedure are in the results section. BASIC METABOLIC PANEL Routine 05/29/2018 7:44 Results for this (7) PM [employer] procedure are in the results section. CBC W/PLT COUNT & AUTO Routine 05/29/2018 7:44 Results for this DIFFERENTIAL PM [employer] procedure are in the results section. FL [employer] AGENT IN OR 30 Routine 05/29/2018 6:55 Results for this MINUTE INCREMENTS PM [employer] procedure are in the results section. TRANSFUSION SERVICE 05/29/2018 6:01 REPORT - SCAN PM [employer] PHOSPHORUS Routine 05/29/2018 4:56 Results for this PM [employer] procedure are in the results section. MAGNESIUM Routine 05/29/2018 4:56 Results for this PM [employer] procedure are in the results section. BASIC METABOLIC PANEL Routine 05/29/2018 4:56 Results for this (7) PM [employer] procedure are in the results section. HEMOGLOBIN AND Routine 05/29/2018 4:56 Results for this HEMATOCRIT PM [employer] procedure are in the results section. VANCOMYCIN LEVEL, Timed 05/29/2018 4:56 Results for this TROUGH PM [employer] procedure are in the results section. CYSTOSCOPY 05/29/2018 4:25 Injury of urethra, PM [employer] initial encounter Special Needs REQ [id number] POCT-GLUCOSE METER Routine 05/29/2018 12:33 PM Results for this [employer] procedure are in the results section. HEMOGLOBIN AND Routine 05/29/2018 8:51 AM Results for this HEMATOCRIT [employer] procedure are in the results section. POCT-GLUCOSE METER Routine 05/29/2018 5:42 AM Results for this [employer] procedure are in the results section. CREATININE, RANDOM Routine 05/29/2018 5:27 AM Results for this URINE [employer] procedure are in the results section. UREA NITROGEN, RANDOM Routine 05/29/2018 5:27 AM Results for this URINE [employer] procedure are in the results section. SODIUM, RANDOM URINE Routine 05/29/2018 5:27 AM Results for this [employer] procedure are in the results section. LACTIC ACID, ARTERIAL, STAT 05/29/2018 5:20 AM Results for this WHOLE BLOOD [employer] procedure are in the results section. BLOOD GAS, ARTERIAL Routine 05/29/2018 3:55 AM Results for this [employer] procedure are in the results section. MAGNESIUM Routine 05/29/2018 3:55 AM Results for this [employer] procedure are in the results section. CBC (HEMOGRAM ONLY) Routine 05/29/2018 3:55 AM Results for this [employer] procedure are in the results section. BASIC METABOLIC PANEL Routine 05/29/2018 3:55 AM Results for this (7) [employer] procedure are in the results section. PHOSPHORUS Routine 05/29/2018 3:55 AM Results for this [employer] procedure are in the results section. XR CHEST 1 VIEW STAT 05/29/2018 2:25 AM Results for this PORTABLE/BEDSIDE [employer] procedure are in the results section. POCT-GLUCOSE METER Routine 05/29/2018 12:00 AM Results for this WELDING TESTER procedure are in the results section. BASIC METABOLIC PANEL STAT 05/28/2018 10:58 PM Results for this (7) WELDING TESTER procedure are in the results section. HEMOGLOBIN AND Routine 05/28/2018 10:12 PM Results for this HEMATOCRIT WELDING TESTER procedure are in the results section. HEMOGLOBIN AND Routine 05/28/2018 6:50 PM Results for this HEMATOCRIT WELDING TESTER procedure are in the results section. LACTIC ACID, ARTERIAL, Routine 05/28/2018 6:50 PM Results for this WHOLE BLOOD WELDING TESTER procedure are in the results section. TRANSFUSION SERVICE 05/28/2018 6:00 PM REPORT - SCAN WELDING TESTER TRANSFUSE Routine 05/28/2018 3:14 PM LEUKO-REDUCED RED WELDING TESTER BLOOD CELLS LACTIC ACID, ARTERIAL, Routine 05/28/2018 10:11 AM Results for this WHOLE BLOOD WELDING TESTER procedure are in the results section. HEMOGLOBIN AND Routine 05/28/2018 10:11 AM Results for this HEMATOCRIT WELDING TESTER procedure are in the results section. TRANSFUSE Routine 05/28/2018 9:01 AM LEUKO-REDUCED RED WELDING TESTER BLOOD CELLS HEMOGLOBIN AND STAT 05/28/2018 6:17 AM Results for this HEMATOCRIT WELDING TESTER procedure are in the results section. LACTIC ACID, ARTERIAL, Routine 05/28/2018 6:17 AM Results for this WHOLE BLOOD WELDING TESTER procedure are in the results section. BLOOD GAS, ARTERIAL Routine 05/28/2018 3:52 AM Results for this WELDING TESTER procedure are in the results section. TRIGLYCERIDES Routine 05/28/2018 3:52 AM Results for this WELDING TESTER procedure are in the results section. PREALBUMIN Routine 05/28/2018 3:52 AM Results for this WELDING TESTER procedure are in the results section. HEPATIC FUNCTION PANEL Routine 05/28/2018 3:52 AM Results for this WELDING TESTER procedure are in the results section. MAGNESIUM Routine 05/28/2018 3:52 AM Results for this WELDING TESTER procedure are in the results section. CBC (HEMOGRAM ONLY) Routine 05/28/2018 3:52 AM Results for this WELDING TESTER procedure are in the results section. BASIC METABOLIC PANEL Routine 05/28/2018 3:52 AM Results for this (7) WELDING TESTER procedure are in the results section. PHOSPHORUS Routine 05/28/2018 3:52 AM Results for this WELDING TESTER procedure are in the results section. LACTIC ACID, ARTERIAL, Routine 05/28/2018 2:27 AM Results for this WHOLE BLOOD WELDING TESTER procedure are in the results section. PT/APTT STAT 05/27/2018 10:31 PM Results for this WELDING TESTER procedure are in the results section. BLOOD GAS, ARTERIAL Routine 05/27/2018 10:31 PM Results for this WELDING TESTER procedure are in the results section. LACTIC ACID, ARTERIAL, STAT 05/27/2018 10:31 PM Results for this WHOLE BLOOD WELDING TESTER procedure are in the results section. PHOSPHORUS STAT 05/27/2018 10:31 PM Results for this WELDING TESTER procedure are in the results section. MAGNESIUM STAT 05/27/2018 10:31 PM Results for this WELDING TESTER procedure are in the results section. BASIC METABOLIC PANEL STAT 05/27/2018 10:31 PM Results for this (7) WELDING TESTER procedure are in the results section. HEMOGLOBIN AND STAT 05/27/2018 10:31 PM Results for this HEMATOCRIT WELDING TESTER procedure are in the results section. C-REACTIVE PROTEIN Routine 05/27/2018 10:31 PM Results for this WELDING TESTER procedure are in the results section. XR CHEST 1 VIEW STAT 05/27/2018 10:21 PM Results for this PORTABLE/BEDSIDE WELDING TESTER procedure are in the results section. SURGICALLY OBTAINED Routine 05/27/2018 8:29 PM Results for this CULTURE + GRAM STAIN WELDING TESTER procedure are in the results section. FUNGUS CULTURE + Routine 05/27/2018 8:29 PM SMEAR WELDING TESTER ANAEROBIC CULTURE Routine 05/27/2018 8:29 PM Results for this WELDING TESTER procedure are in the results section. AFB CULTURE + SMEAR Routine 05/27/2018 8:29 PM WELDING TESTER SPIN/CONCENTRATION Routine 05/27/2018 8:29 PM Results for this CHARGE WELDING TESTER procedure are in the results section. LAPAROTOMY,EXPLORATORY 05/27/2018 6:45 PM Malignant neoplasm WELDING TESTER of colon, unspecified part of colon (HCC) TYPE AND SCREEN STAT 05/27/2018 6:12 PM Results for this WELDING TESTER procedure are in the results section. CT ABDOMEN/PELVIS WITH STAT 05/27/2018 4:30 PM Results for this IV CONTRAST WELDING TESTER procedure are in the results section. PT/APTT STAT 05/27/2018 3:33 PM Results for this WELDING TESTER procedure are in the results section. PROTHROMBIN TIME/INR STAT 05/27/2018 3:33 PM Results for this WELDING TESTER procedure are in the results section. BLOOD CULTURE STAT 05/27/2018 3:33 PM Results for this WELDING TESTER procedure are in the results section. BLOOD CULTURE STAT 05/27/2018 3:26 PM Results for this WELDING TESTER procedure are in the results section. URINALYSIS W/ REFLEX STAT 05/27/2018 2:42 PM Results for this URINE CULTURE WELDING TESTER procedure are in the results section. VANCOMYCIN LEVEL, Timed 05/27/2018 11:22 AM Results for this TROUGH WELDING TESTER procedure are in the results section. POCT-GLUCOSE METER Routine 05/27/2018 5:22 AM Results for this WELDING TESTER procedure are in the results section. LACTIC ACID, VENOUS, Routine 05/27/2018 4:33 AM Results for this WHOLE BLOOD WELDING TESTER procedure are in the results section. MAGNESIUM Routine 05/27/2018 4:33 AM Results for this WELDING TESTER procedure are in the results section. CBC (HEMOGRAM ONLY) Routine 05/27/2018 4:33 AM Results for this WELDING TESTER procedure are in the results section. BASIC METABOLIC PANEL Routine 05/27/2018 4:33 AM Results for this (7) WELDING TESTER procedure are in the results section. PHOSPHORUS Routine 05/27/2018 4:33 AM Results for this WELDING TESTER procedure are in the results section. POCT-GLUCOSE METER Routine 05/26/2018 11:04 PM Results for this WELDING TESTER procedure are in the results section. POCT-GLUCOSE METER Routine 05/26/2018 6:03 PM Results for this WELDING TESTER procedure are in the results section. POCT-GLUCOSE METER Routine 05/26/2018 12:40 PM Results for this WELDING TESTER procedure are in the results section. POCT-GLUCOSE METER Routine 05/26/2018 6:16 AM Results for this WELDING TESTER procedure are in the results section. C. DIFFICILE GDH TOXIN Routine 05/26/2018 5:09 AM Results for this WELDING TESTER procedure are in the results section. CBC (HEMOGRAM ONLY) Routine 05/26/2018 3:35 AM Results for this WELDING TESTER procedure are in the results section. CALCIUM, IONIZED Routine 05/26/2018 3:04 AM Results for this WELDING TESTER procedure are in the results section. LACTIC ACID, VENOUS, Routine 05/26/2018 3:04 AM Results for this WHOLE BLOOD WELDING TESTER procedure are in the results section. MAGNESIUM Routine 05/26/2018 3:04 AM Results for this WELDING TESTER procedure are in the results section. BASIC METABOLIC PANEL Routine 05/26/2018 3:04 AM Results for this (7) WELDING TESTER procedure are in the results section. PHOSPHORUS Routine 05/26/2018 3:04 AM Results for this WELDING TESTER procedure are in the results section. POCT-GLUCOSE METER Routine 05/25/2018 11:40 PM Results for this WELDING TESTER procedure are in the results section. URINALYSIS W/ REFLEX Routine 05/25/2018 5:27 PM Results for this URINE CULTURE WELDING TESTER procedure are in the results section. RHONDA ANTIGEN TITER Routine 05/25/2018 3:30 PM Results for this WELDING TESTER procedure are in the results section. RHONDA ANTIGEN WITH Routine 05/25/2018 3:30 PM Results for this REFLEX TO TITER WELDING TESTER procedure are in the results section. LACTIC ACID, VENOUS, Routine 05/25/2018 6:24 AM Results for this WHOLE BLOOD WELDING TESTER procedure are in the results section. MAGNESIUM Routine 05/25/2018 6:24 AM Results for this WELDING TESTER procedure are in the results section. CBC (HEMOGRAM ONLY) Routine 05/25/2018 6:24 AM Results for this WELDING TESTER procedure are in the results section. BASIC METABOLIC PANEL Routine 05/25/2018 6:24 AM Results for this (7) WELDING TESTER procedure are in the results section. PHOSPHORUS Routine 05/25/2018 6:24 AM Results for this WELDING TESTER procedure are in the results section. POCT-GLUCOSE METER Routine 05/25/2018 5:20 AM Results for this WELDING TESTER procedure are in the results section. POCT-GLUCOSE METER Routine 05/25/2018 1:48 AM Results for this WELDING TESTER procedure are in the results section. CT ABDOMEN/PELVIS WITH THADDEUS 05/24/2018 6:13 PM Results for this IV CONTRAST WELDING TESTER procedure are in the results section. POCT-GLUCOSE METER Routine 05/24/2018 2:07 PM Results for this WELDING TESTER procedure are in the results section. XR CHEST 1 VIEW THADDEUS 05/24/2018 11:37 AM Results for this PORTABLE/BEDSIDE WELDING TESTER procedure are in the results section. POCT-GLUCOSE METER Routine 05/24/2018 5:28 AM Results for this WELDING TESTER procedure are in the results section. POCT-GLUCOSE METER Routine 05/24/2018 3:09 AM Results for this WELDING TESTER procedure are in the results section. LACTIC ACID, VENOUS, Routine 05/24/2018 3:08 AM Results for this WHOLE BLOOD WELDING TESTER procedure are in the results section. MAGNESIUM Routine 05/24/2018 3:08 AM Results for this WELDING TESTER procedure are in the results section. CBC (HEMOGRAM ONLY) Routine 05/24/2018 3:08 AM Results for this WELDING TESTER procedure are in the results section. BASIC METABOLIC PANEL Routine 05/24/2018 3:08 AM Results for this (7) WELDING TESTER procedure are in the results section. PHOSPHORUS Routine 05/24/2018 3:08 AM Results for this WELDING TESTER procedure are in the results section. URINALYSIS W/ REFLEX Routine 05/23/2018 2:24 PM Results for this URINE CULTURE WELDING TESTER procedure are in the results section. URINE CULTURE Routine 05/23/2018 2:24 PM Results for this WELDING TESTER procedure are in the results section. LACTIC ACID, VENOUS, Routine 05/23/2018 11:17 AM Results for this WHOLE BLOOD WELDING TESTER procedure are in the results section. XR ABDOMEN 1 VIEW Routine 05/23/2018 11:10 AM Results for this WELDING TESTER procedure are in the results section. BLOOD CULTURE Routine 05/23/2018 8:09 AM Results for this WELDING TESTER procedure are in the results section. BLOOD CULTURE Routine 05/23/2018 8:04 AM Results for this WELDING TESTER procedure are in the results section. MAGNESIUM Routine 05/23/2018 3:54 AM Results for this WELDING TESTER procedure are in the results section. CBC (HEMOGRAM ONLY) Routine 05/23/2018 3:54 AM Results for this WELDING TESTER procedure are in the results section. BASIC METABOLIC PANEL Routine 05/23/2018 3:54 AM Results for this (7) WELDING TESTER procedure are in the results section. PHOSPHORUS Routine 05/23/2018 3:54 AM Results for this WELDING TESTER procedure are in the results section. XR CHEST 1 VIEW STAT 05/23/2018 3:07 AM Results for this PORTABLE/BEDSIDE WELDING TESTER procedure are in the results section. POCT-LACTIC ACID, Routine 05/23/2018 3:02 AM Results for this ARTERIAL WELDING TESTER procedure are in the results section. POCT-HEMOGLOBIN Routine 05/23/2018 2:57 AM Results for this WELDING TESTER procedure are in the results section. POCT-HEMATOCRIT Routine 05/23/2018 2:57 AM Results for this WELDING TESTER procedure are in the results section. POCT-CALCIUM IONIZED Routine 05/23/2018 2:57 AM Results for this WELDING TESTER procedure are in the results section. POCT-GLUCOSE Routine 05/23/2018 2:57 AM Results for this WELDING TESTER procedure are in the results section. POCT-POTASSIUM Routine 05/23/2018 2:57 AM Results for this WELDING TESTER procedure are in the results section. POCT-SODIUM Routine 05/23/2018 2:57 AM Results for this WELDING TESTER procedure are in the results section. POCT-BLOOD GASES, Routine 05/23/2018 2:57 AM Results for this ARTERIAL WELDING TESTER procedure are in the results section. PHOSPHORUS Routine 05/22/2018 5:09 PM Results for this WELDING TESTER procedure are in the results section. MAGNESIUM Routine 05/22/2018 5:09 PM Results for this WELDING TESTER procedure are in the results section. BASIC METABOLIC PANEL Routine 05/22/2018 5:09 PM Results for this (7) WELDING TESTER procedure are in the results section. XR ABDOMEN 1 VIEW Routine 05/22/2018 4:51 AM Results for this WELDING TESTER procedure are in the results section. TRIGLYCERIDES Routine 05/22/2018 3:48 AM Results for this WELDING TESTER procedure are in the results section. LACTIC ACID, VENOUS, Routine 05/22/2018 3:48 AM Results for this WHOLE BLOOD WELDING TESTER procedure are in the results section. MAGNESIUM Routine 05/22/2018 3:48 AM Results for this WELDING TESTER procedure are in the results section. CBC (HEMOGRAM ONLY) Routine 05/22/2018 3:48 AM Results for this WELDING TESTER procedure are in the results section. BASIC METABOLIC PANEL Routine 05/22/2018 3:48 AM Results for this (7) WELDING TESTER procedure are in the results section. PHOSPHORUS Routine 05/22/2018 3:48 AM Results for this WELDING TESTER procedure are in the results section. XR CHEST 1 VIEW STAT 05/21/2018 7:28 PM Results for this PORTABLE/BEDSIDE WELDING TESTER procedure are in the results section. XR ABDOMEN 1 VIEW STAT 05/21/2018 11:12 AM Results for this WELDING TESTER procedure are in the results section. XR CHEST 1 VIEW Routine 05/21/2018 5:29 AM Results for this PORTABLE/BEDSIDE WELDING TESTER procedure are in the results section. LACTIC ACID, VENOUS, Routine 05/21/2018 3:40 AM Results for this WHOLE BLOOD WELDING TESTER procedure are in the results section. MAGNESIUM Routine 05/21/2018 3:40 AM Results for this WELDING TESTER procedure are in the results section. CBC (HEMOGRAM ONLY) Routine 05/21/2018 3:40 AM Results for this WELDING TESTER procedure are in the results section. BASIC METABOLIC PANEL Routine 05/21/2018 3:40 AM Results for this (7) WELDING TESTER procedure are in the results section. PROTHROMBIN TIME/INR Routine 05/21/2018 3:40 AM Results for this WELDING TESTER procedure are in the results section. PHOSPHORUS Routine 05/21/2018 3:40 AM Results for this WELDING TESTER procedure are in the results section. XR ABDOMEN 1 VIEW STAT 05/20/2018 1:50 PM Results for this WELDING TESTER procedure are in the results section. LACTIC ACID, VENOUS, Routine 05/20/2018 5:08 AM Results for this WHOLE BLOOD WELDING TESTER procedure are in the results section. MAGNESIUM Routine 05/20/2018 5:08 AM Results for this WELDING TESTER procedure are in the results section. CBC (HEMOGRAM ONLY) Routine 05/20/2018 5:08 AM Results for this WELDING TESTER procedure are in the results section. BASIC METABOLIC PANEL Routine 05/20/2018 5:08 AM Results for this (7) WELDING TESTER procedure are in the results section. PROTHROMBIN TIME/INR Routine 05/20/2018 5:08 AM Results for this WELDING TESTER procedure are in the results section. PHOSPHORUS Routine 05/20/2018 5:08 AM Results for this WELDING TESTER procedure are in the results section. XR CHEST 1 VIEW Routine 05/20/2018 4:40 AM Results for this PORTABLE/BEDSIDE WELDING TESTER procedure are in the results section. XR ABDOMEN 1 VIEW STAT 05/19/2018 10:55 AM Results for this WELDING TESTER procedure are in the results section. POCT-GLUCOSE METER Routine 05/19/2018 5:28 AM Results for this WELDING TESTER procedure are in the results section. XR CHEST 1 VIEW Routine 05/19/2018 5:13 AM Results for this PORTABLE/BEDSIDE WELDING TESTER procedure are in the results section. LACTIC ACID, VENOUS, Routine 05/19/2018 3:54 AM Results for this WHOLE BLOOD WELDING TESTER procedure are in the results section. MAGNESIUM Routine 05/19/2018 3:54 AM Results for this WELDING TESTER procedure are in the results section. CBC (HEMOGRAM ONLY) Routine 05/19/2018 3:54 AM Results for this WELDING TESTER procedure are in the results section. BASIC METABOLIC PANEL Routine 05/19/2018 3:54 AM Results for this (7) WELDING TESTER procedure are in the results section. PROTHROMBIN TIME/INR Routine 05/19/2018 3:54 AM Results for this WELDING TESTER procedure are in the results section. PHOSPHORUS Routine 05/19/2018 3:54 AM Results for this WELDING TESTER procedure are in the results section. XR ABDOMEN 1 VIEW Routine 05/18/2018 3:40 AM Results for this WELDING TESTER procedure are in the results section. XR CHEST 1 VIEW Routine 05/18/2018 3:40 AM Results for this PORTABLE/BEDSIDE WELDING TESTER procedure are in the results section. CBC (HEMOGRAM ONLY) Routine 05/18/2018 2:05 AM Results for this WELDING TESTER procedure are in the results section. PROTHROMBIN TIME/INR Routine 05/18/2018 2:03 AM Results for this WELDING TESTER procedure are in the results section. PHOSPHORUS Routine 05/18/2018 2:03 AM Results for this WELDING TESTER procedure are in the results section. LACTIC ACID, VENOUS, Routine 05/18/2018 2:03 AM Results for this WHOLE BLOOD WELDING TESTER procedure are in the results section. TRANSFUSION SERVICE 05/17/2018 6:00 PM REPORT - SCAN WELDING TESTER MAGNESIUM STAT 05/17/2018 4:27 PM Results for this WELDING TESTER procedure are in the results section. OXYGEN SATURATION, STAT 05/17/2018 4:27 PM Results for this MEASURED WELDING TESTER procedure are in the results section. HEPATIC FUNCTION PANEL STAT 05/17/2018 4:27 PM Results for this WELDING TESTER procedure are in the results section. BASIC METABOLIC PANEL STAT 05/17/2018 4:27 PM Results for this (7) WELDING TESTER procedure are in the results section. (CELLAVISION MANUAL Routine 05/17/2018 4:09 PM Results for this DIFF) WELDING TESTER procedure are in the results section. CBC W/PLT COUNT & AUTO Routine 05/17/2018 4:09 PM Results for this DIFFERENTIAL WELDING TESTER procedure are in the results section. APTT STAT 05/17/2018 4:09 PM Results for this WELDING TESTER procedure are in the results section. PROTHROMBIN TIME/INR STAT 05/17/2018 4:09 PM Results for this WELDING TESTER procedure are in the results section. CBC W/PLT COUNT & AUTO STAT 05/17/2018 4:09 PM Results for this DIFFERENTIAL WELDING TESTER procedure are in the results section. LACTIC ACID, VENOUS, Routine 05/17/2018 4:09 PM Results for this WHOLE BLOOD WELDING TESTER procedure are in the results section. ECG 12-LEAD Routine 05/17/2018 2:46 PM Results for this WELDING TESTER procedure are in the results section. ECG 12-LEAD Routine 05/17/2018 2:46 PM WELDING TESTER Procedure Note - Interface, External Ris In - 05/17/2018 2:48 PM WELDING TESTER Ventricular Rate 118 BPM Atrial Rate 118 BPM P-R Interval 116 ms QRS Duration 84 ms Q-T Interval 448 ms QTC Calculation(Bazett) 627 ms P Fowler 48 degrees R Fowler 42 degrees T Fowler 46 degrees Sinus tachycardia Nonspecific ST and T wave abnormality Prolonged QT Abnormal ECG When compared with ECG of 17-MAY-2018 11:01, ST no longer depressed in Inferior leads ST elevation now present in Anterior leads ST no longer depressed in Lateral leads Nonspecific T wave abnormality, improved in Inferior leads POCT-LACTIC ACID, Routine 05/17/2018 1:29 Results for this VENOUS PM WELDING TESTER procedure are in the results section. ECG 12-LEAD Routine 05/17/2018 11:01 Results for this AM WELDING TESTER procedure are in the results section. POCT-LACTIC ACID, Routine 05/17/2018 10:40 Results for this ARTERIAL AM WELDING TESTER procedure are in the results section. XR CHEST 1 VIEW STAT 05/17/2018 10:39 Results for this PORTABLE/BEDSIDE AM WELDING TESTER procedure are in the results section. POCT-HEMOGLOBIN Routine 05/17/2018 10:36 Results for this AM WELDING TESTER procedure are in the results section. POCT-HEMATOCRIT Routine 05/17/2018 10:36 Results for this AM WELDING TESTER procedure are in the results section. POCT-CALCIUM IONIZED Routine 05/17/2018 10:36 Results for this AM WELDING TESTER procedure are in the results section. POCT-GLUCOSE Routine 05/17/2018 10:36 Results for this AM WELDING TESTER procedure are in the results section. POCT-POTASSIUM Routine 05/17/2018 10:36 Results for this AM WELDING TESTER procedure are in the results section. POCT-SODIUM Routine 05/17/2018 10:36 Results for this AM WELDING TESTER procedure are in the results section. POCT-BLOOD GASES, Routine 05/17/2018 10:36 Results for this ARTERIAL AM WELDING TESTER procedure are in the results section. BLOOD CULTURE STAT 05/17/2018 10:34 Results for this AM WELDING TESTER procedure are in the results section. BLOOD CULTURE Routine 05/17/2018 10:33 Results for this AM WELDING TESTER procedure are in the results section. PROTHROMBIN TIME/INR Routine 05/17/2018 4:32 Results for this AM WELDING TESTER procedure are in the results section. PHOSPHORUS Routine 05/17/2018 4:32 Results for this AM WELDING TESTER procedure are in the results section. MAGNESIUM Routine 05/17/2018 4:32 Results for this AM WELDING TESTER procedure are in the results section. CBC (HEMOGRAM ONLY) Routine 05/17/2018 4:32 Results for this AM WELDING TESTER procedure are in the results section. BASIC METABOLIC Routine 05/17/2018 4:32 Results for this PANEL (7) AM WELDING TESTER procedure are in the results section. PREPARE Routine 05/16/2018 11:54 Results for this LEUKO-REDUCED RBC PM WELDING TESTER procedure are in the results section. TRANSFUSION SERVICE 05/16/2018 6:01 REPORT - SCAN PM WELDING TESTER PROTHROMBIN TIME/INR Routine 05/16/2018 5:25 Results for this AM WELDING TESTER procedure are in the results section. PHOSPHORUS Routine 05/16/2018 5:25 Results for this AM WELDING TESTER procedure are in the results section. MAGNESIUM Routine 05/16/2018 5:25 Results for this AM WELDING TESTER procedure are in the results section. CBC (HEMOGRAM ONLY) Routine 05/16/2018 5:25 Results for this AM WELDING TESTER procedure are in the results section. BASIC METABOLIC Routine 05/16/2018 5:25 Results for this PANEL (7) AM WELDING TESTER procedure are in the results section. HGB/HCT (H&H) - STAT STAT 05/15/2018 6:27 Results for this LAB PM WELDING TESTER procedure are in the results section. GLUCOSE-STAT LAB STAT 05/15/2018 6:27 Results for this PM WELDING TESTER procedure are in the results section. POTASSIUM-STAT LAB STAT 05/15/2018 6:27 Results for this PM WELDING TESTER procedure are in the results section. SODIUM NA-STAT LAB STAT 05/15/2018 6:27 Results for this PM WELDING TESTER procedure are in the results section. BLOOD GAS, ARTERIAL STAT 05/15/2018 6:27 Results for this PM WELDING TESTER procedure are in the results section. CALCIUM, IONIZED STAT 05/15/2018 6:27 Results for this PM WELDING TESTER procedure are in the results section. RRL CRITICAL LABS STAT 05/15/2018 6:27 Results for this (ABG,NA,K,H&H,GLUCOS PM WELDING TESTER procedure are in E) the results section. TISSUE EXAM AP Routine 05/15/2018 6:16 Results for this PM WELDING TESTER procedure are in the results section. TRANSFUSE Routine 05/15/2018 5:48 LEUKO-REDUCED RED PM WELDING TESTER BLOOD CELLS HGB/HCT (H&H) - STAT STAT 05/15/2018 4:53 Results for this LAB PM WELDING TESTER procedure are in the results section. GLUCOSE-STAT LAB STAT 05/15/2018 4:53 Results for this PM WELDING TESTER procedure are in the results section. POTASSIUM-STAT LAB STAT 05/15/2018 4:53 Results for this PM WELDING TESTER procedure are in the results section. SODIUM NA-STAT LAB STAT 05/15/2018 4:53 Results for this PM WELDING TESTER procedure are in the results section. BLOOD GAS, ARTERIAL STAT 05/15/2018 4:53 Results for this PM WELDING TESTER procedure are in the results section. CALCIUM, IONIZED STAT 05/15/2018 4:53 Results for this PM WELDING TESTER procedure are in the results section. RRL CRITICAL LABS STAT 05/15/2018 4:53 Results for this (ABG,NA,K,H&H,GLUCOS PM WELDING TESTER procedure are in E) the results section. TRANSFUSE Routine 05/15/2018 4:18 LEUKO-REDUCED RED PM WELDING TESTER BLOOD CELLS COLECTOMY,RIGHT 05/15/2018 12:52 Malignant neoplasm PM WELDING TESTER of colon, unspecified part of colon (HCC) TYPE AND SCREEN, Routine 05/15/2018 6:12 Results for this AUTOMATED AM WELDING TESTER procedure are in the results section. PROTHROMBIN TIME/INR Routine 05/15/2018 6:12 Results for this AM WELDING TESTER procedure are in the results section. PHOSPHORUS Routine 05/15/2018 6:12 Results for this AM WELDING TESTER procedure are in the results section. MAGNESIUM Routine 05/15/2018 6:12 Results for this AM WELDING TESTER procedure are in the results section. CBC (HEMOGRAM ONLY) Routine 05/15/2018 6:12 Results for this AM WELDING TESTER procedure are in the results section. BASIC METABOLIC Routine 05/15/2018 6:12 Results for this PANEL (7) AM WELDING TESTER procedure are in the results section. CT CHEST WITH IV Routine 05/14/2018 11:23 Results for this CONTRAST PM WELDING TESTER procedure are in the results section. MAGNESIUM Routine 05/14/2018 6:13 Results for this AM WELDING TESTER procedure are in the results section. CBC (HEMOGRAM ONLY) Routine 05/14/2018 6:13 Results for this AM WELDING TESTER procedure are in the results section. BASIC METABOLIC Routine 05/14/2018 6:13 Results for this PANEL (7) AM WELDING TESTER procedure are in the results section. MAGNESIUM Routine 05/13/2018 9:30 Results for this AM WELDING TESTER procedure are in the results section. BASIC METABOLIC Routine 05/13/2018 9:30 Results for this PANEL (7) AM WELDING TESTER procedure are in the results section. CBC (HEMOGRAM ONLY) Routine 05/13/2018 9:30 Results for this AM WELDING TESTER procedure are in the results section. CT ABDOMEN/PELVIS THADDEUS 05/12/2018 2:53 Results for this WITH IV CONTRAST PM WELDING TESTER procedure are in the results section. REPORT OF PROCEDURE 05/12/2018 10:31 - ENDOSCOPY URL AM WELDING TESTER REPORT OF PROCEDURE 05/12/2018 10:28 - ENDOSCOPY URL AM WELDING TESTER TISSUE EXAM AP Routine 05/12/2018 9:36 Results for this AM WELDING TESTER procedure are in the results section. COLONOSCOPY,SUBMUCOS 05/12/2018 9:00 Dysphagia, AL INJECTION AM WELDING TESTER unspecified type Hematochezia UPPER 05/12/2018 9:00 Dysphagia, ENDOSCOPY,BIOPSY AM WELDING TESTER unspecified type Hematochezia PROTHROMBIN TIME/INR Routine 05/12/2018 5:58 Results for this AM WELDING TESTER procedure are in the results section. CBC (HEMOGRAM ONLY) Routine 05/12/2018 5:58 Results for this AM WELDING TESTER procedure are in the results section. MAGNESIUM Routine 05/12/2018 5:58 Results for this AM WELDING TESTER procedure are in the results section. BASIC METABOLIC Routine 05/12/2018 5:58 Results for this PANEL (7) AM WELDING TESTER procedure are in the results section. TRANSFUSION SERVICE 05/11/2018 5:50 REPORT - SCAN PM WELDING TESTER FERRITIN Routine 05/11/2018 4:20 Results for this PM WELDING TESTER procedure are in the results section. IRON, TIBC, % SAT. Routine 05/11/2018 4:20 Results for this (WITHOUT FERRITIN) PM WELDING TESTER procedure are in the results section. CBC (HEMOGRAM ONLY) Routine 05/11/2018 4:56 Results for this AM WELDING TESTER procedure are in the results section. MAGNESIUM Routine 05/11/2018 4:56 Results for this AM WELDING TESTER procedure are in the results section. BASIC METABOLIC Routine 05/11/2018 4:56 Results for this PANEL (7) AM WELDING TESTER procedure are in the results section. HEMOGLOBIN AND Routine 05/10/2018 3:23 Results for this HEMATOCRIT PM WELDING TESTER procedure are in the results section. TYPE AND SCREEN, Routine 05/10/2018 5:39 Results for this AUTOMATED AM WELDING TESTER procedure are in the results section. CBC (HEMOGRAM ONLY) Routine 05/10/2018 5:39 Results for this AM WELDING TESTER procedure are in the results section. MAGNESIUM Routine 05/10/2018 5:39 Results for this AM WELDING TESTER procedure are in the results section. BASIC METABOLIC Routine 05/10/2018 5:39 Results for this PANEL (7) AM WELDING TESTER procedure are in the results section. after 06/16/2017 Results POC-Glucose meter (06/12/2018 11:40 AM WELDING TESTER)Only the most recent of56 resultswithin the time period is included. POC-Glucose Meter 116 (H)Comment: TESTED AT 70 - 110 mg/dL [facility] [address] [facility] [id number] Specimen Blood Performing Organization Address City/State/Zipcode Phone Number [address] [address] [phone] CENTER CBC (Hemogram only) (06/12/2018 4:53 AM WELDING TESTER)Only the most recent of34 resultswithin the time period is included. WBC 8.6 3.5 - 10.5 K/L [facility] RBC 3.26 (L) 4.63 - 6.08 M/L [facility] Hemoglobin 8.1 (L) 13.7 - 17.5 GM/DL [facility] Hematocrit 27.4 (L) 40.1 - 51.0 % [facility] MCV 84.0 79.0 - 92.2 fL [facility] MCH 24.8 (L) 25.7 - 32.2 pg [facility] MCHC 29.6 (L) 32.3 - 36.5 GM/DL [facility] RDW 22.8 (H) 11.6 - 14.4 % [facility] Platelets 389 150 - 450 K/CU MM [facility] MPV 8.6 (L) 9.4 - 12.4 fL [facility] nRBC 0 0 - 0 /100 WBC [facility] Specimen Blood - Arm, Right Performing Organization Address [facility]/Zipcode Phone Number [address] [address] [phone] CENTER Phosphorus (06/12/2018 4:53 AM WELDING TESTER)Only the most recent of33 resultswithin the time period is included. Phosphorus 3.2 2.3 - 4.7 mg/dL [facility] Specimen Blood - Arm, Right Performing Organization Address [facility] Phone Number [address] [address] [phone] CENTER Magnesium (06/12/2018 4:53 AM WELDING TESTER)Only the most recent of38 resultswithin the time period is included. Magnesium 1.0 (LL) 1.6 - 2.6 mg/dL [facility] Specimen Blood - Arm, Right Performing Organization Address [facility] Phone Number [address] [address] CENTER Basic Metabolic Panel (06/12/2018 4:53 AM WELDING TESTER)Only the most recent of40 resultswithin the time period is included. Sodium 140 136 - 145 meq/L [facility] Potassium 4.0 3.5 - 5.1 meq/L [facility] Chloride 110 (H) 98 - 107 meq/L [facility] CO2 24 22 - 29 meq/L [facility] BUN 6 (L) 7 - 21 mg/dL [facility] Creatinine 0.69 0.57 - 1.25 mg/dL [facility] Glucose 356 (H) 70 - 105 mg/dL [facility] Calcium 8.2 (L) 8.4 - 10.2 mg/dL [facility] EGFR 120Comment: ESTIMATED GFR IS mL/min/1.73 sq m [facility] NOT ACCURATE [facility]ATIN[facility] CLEARANCE IN PREDICTING GLOMERULAR FILTRATION RATE. ESTIMATED GFR IS NOT APPLICABLE FOR DIALYSIS PATIENTS. Specimen Blood - Arm, Right Performing Organization Address [facility] Phone Number [address] [address] [phone] CENTER C-Reactive Protein (06/11/2018 4:19 AM WELDING TESTER)Only the most recent of3 resultswithin the time period is included. CRP 4.10 (H) 0.00 - 0.50 mg/dL [facility] Specimen Blood - Central Venous Line Performing Organization Address [facility] Phone Number [address] [address] CENTER Triglycerides (06/11/2018 4:19 AM WELDING TESTER)Only the most recent of4 resultswithin the time period is included. Triglycerides 125 mg/dL [facility] Specimen Blood - Central Venous Line Narrative Performed At [facility] Low Risk<150 Borderline Risk 150-199 High [id number] Very High Risk >=500 Performing Organization Address [facility] Phone Number [address] [address] CENTER Prealbumin (06/11/2018 4:19 AM WELDING TESTER)Only the most recent of3 resultswithin the time period is included. Prealbumin 11 (L) 14 - 45 mg/dL [facility] Specimen Blood - Central Venous Line Performing Organization Address [facility] Phone Number [address] [address] [phone] CENTER Hepatic function panel (06/11/2018 4:19 AM WELDING TESTER)Only the most recent of6 resultswithin the time period is included. Protein, Total 5.2 (L) 6.0 - 8.3 gm/dL [facility] Albumin 2.0 (L) 3.5 - 5.0 g/dL [facility] Total Bilirubin 0.2 0.2 - 1.2 mg/dL [facility] Bilirubin, Direct 0.1 0.1 - 0.5 mg/dL [facility] Alkaline Phosphatase 202 (H) 40 - 150 U/L [facility] AST 28 5 - 34 U/L [facility] ALT 17 6 - 55 U/L [facility] Specimen Blood - Central Venous Line Performing Organization Address City/State/Zipcode Phone Number [facility] [address] [place] [address] abdomen/pelvis with IV contrast (06/09/2018 3:28 PM WELDING TESTER)Only the most recent of5 resultswithin the time period is included. Narrative Performed At FINAL REPORT [facility] EXAMINATION:CT SCAN OF THE ABDOMEN AND PELVIS CLINICAL HISTORY:Leukocytosis. Abscess suspected. Evaluate for intra-abdominal source. COMPARISON EXAM: 06/01/2018 TECHNIQUE: Following the administration of IV and oral contrast, axial tomographic images were acquired through the abdomen and pelvis. The exam was performed according to our departmental dose optimization program which includes automated exposure control, adjustment of the mA and/or kV according to patient's size and/or use of iterative reconstructive technique. FINDINGS: Bilateral pleural effusions are again noted. The right pleural effusion is small and appears to decreased in size. The left pleural effusion is moderate and overall similar to the prior study. Both pleural effusions appear simple without evidence of a peripheral enhancing rind or gas collection to suggest superinfection-empyema. Curvilinear, patchy and nodular opacities are noted in the dependent portion of both lung bases. Although a component of atelectasis is favored, a superimposed pneumonia should also be considered given the patchy and nodular components. As before, the patient is status post bowel resection (including suspected right colectomy) with suture lines in the left upper abdomen and a right lower quadrant ileostomy. As before, small punctate gas collections are noted near the suture lines in the left upper quadrant which may be intraluminal. However trace extraluminal gas-leak cannot be excluded. A fluid collection is again noted dorsal to the stomach which measures approximately 5 cm on today study compared with 11 cm on the previous examination. Additional fluid collections are noted near the left upper quadrant near the suture lines and proximal left colon with the largest fluid collection located in the left paracolic gutter measuring approximately 3 cm. The left paracolic fluid collectionmay communicate with a similar sized but slightly smaller collection which is just ventral to the left kidney and medial to the descending segment of the colon. The fluid collections are similar or improved compared with the previous study. As before, the left upper quadrant fluid collections as well as the fluid dorsal to the stomach demonstrate mild rim enhancement, nonspecific but can be associated with infection. No definite evidence of associated gas. Trace nonloculated fluid is also noted adjacent to the liver, along the right paracolic gutter as well as within the lower abdomen and pelvis. Focal fat stranding within the presacral space is likely nonspecific but may be related to the intra-abdominal nonloculated fluid. Inflammation related to a colitis would also be a consideration given the mild wall thickening of the left colon. Peritonitis cannot be excluded. No definite evidence of an organized pelvic fluid collection/abscess. The stomach is moderately distended, nonspecific. The loops of small bowel are relatively normal in caliber. Segments of small bowel in the right lower abdomen demonstrate mild wall thickening, nonspecific. No definite evidence of mechanical bowel obstruction or pneumatosis. The oral contrast has migrated to the right lower quadrant ileostomy. No definite evidence of extraluminal contrast-leak. The heart size is normal. No evidence of a pericardial effusion. The distal esophagus is decompressed. The liver demonstrates homogeneous decreased attenuation compatible with fatty infiltration. Subtle asymmetric enhancement involving the posterior segment of the right lobe of the liver may reflect fatty sparing. The gallbladder and bile ducts are decompressed. The pancreas, spleen, adrenal glands are unremarkable. No evidence of renal obstruction. A small nonobstructing 4 mm right renal calculus is again noted. The abdominal aorta is normal in caliber. Contrast also opacifies the portal venous system, mesenteric vessels, renal arteries, iliac arteries and visualized femoral arteries. Evaluation of the veins is limited by the early timing of the contrast bolus. A Head catheter is noted in the bladder which appears to be properly positioned. However the bladder remains mildly distended. The gas within the bladder is likely echogenic and related to the Head. Mild wall thickening of the bladder is nonspecific and may reflect chronic changes related to the prostate gland. However a cystitis should also be considered. Trace gas and subtle infiltration of the abdominal wall is likely related to the recent surgical intervention. Third spacing of fluid may also be present. Similar appearing soft tissue infiltration is noted in the visualized thighs. A tiny punctate focus of increased attenuation is noted in the subcutaneous tissues near the umbilicus-midline abdominal wall incision (axial image 46). Although a tiny fistula cannot be excluded, a similar-appearing finding was present on the previous exam. Therefore the finding may reflect postoperative change. The wall thickening of the abdominal wall may reflect reactive and/or postoperative changes. A cellulitis would also be in the differential diagnosis in the appropriate clinical setting. No definite evidence of an acute osseous abnormality IMPRESSION: Bilateral simple appearing pleural effusions (left larger than right), similar to previous. Although a component of the adjacent basilar lung consolidation may reflect atelectasis, a multifocal pneumonia should also be considered given the patchy / nodular associated opacities. Status post recent bowel resection as detailed above. Multiple left abdominal fluid collections are again noted, overall improved. Trace nonloculated fluid is also noted in the lower abdomen and pelvis. Please see above for additional details. Thick-walled bladder.Correlation with urinalysis recommended. Clinical correlation also recommended to confirm the Head catheter is functioning appropriately. Tiny bladder calculi. Wall thickening of the left colon. Incomplete distention versus a colitis. A component of the pelvic fat stranding may reflect a colitis. Mild wall thickening of loops of small bowel in the right lower quadrant. Findings may reflect incomplete reactive changes related to the adjacent trace free fluid, incomplete distention or an enteritis. Postoperative changes and nonspecific infiltration of the abdominal wall subcutaneous tissues as detailed. Cellulitis cannot be excluded. Signed: Felix Sahni MD Report Verified Date/Time:06/09/2018 20:03:19 Reading Location: [address] Reading Room Procedure Note Interface, External Ris In - 06/09/2018 8:05 PM WELDING TESTER FINAL REPORT EXAMINATION: CT SCAN OF THE ABDOMEN AND PELVIS CLINICAL HISTORY:Leukocytosis. Abscess suspected. Evaluate for intra-abdominal source. COMPARISON EXAM: 06/01/2018 TECHNIQUE: Following the administration of IV and oral contrast, axial tomographic images were acquired through the abdomen and pelvis. The exam was performed according to our departmental dose optimization program which includes automated exposure control, adjustment of the mA and/or kV according to patient's size and/or use of iterative reconstructive technique. FINDINGS: Bilateral pleural effusions are again noted. The right pleural effusion is small and appears to decreased in size. The left pleural effusion is moderate and overall similar to the prior study. Both pleural effusions appear simple without evidence of a peripheral enhancing rind or gas collection to suggest superinfection-empyema. Curvilinear, patchy and nodular opacities are noted in the dependent portion of both lung bases. Although a component of atelectasis is favored, a superimposed pneumonia should also be considered given the patchy and nodular components. As before, the patient is status post bowel resection (including suspected right colectomy) with suture lines in the left upper abdomen and a right lower quadrant ileostomy. As before, small punctate gas collections are noted near the suture lines in the left upper quadrant which may be intraluminal. However trace extraluminal gas-leak cannot be excluded. A fluid collection is again noted dorsal to the stomach which measures approximately 5 cm on today study compared with 11 cm on the previous examination. Additional fluid collections are noted near the left upper quadrant near the suture lines and proximal left colon with the largest fluid collection located in the left paracolic gutter measuring approximately 3 cm. The left paracolic fluid collection may communicate with a similar sized but slightly smaller collection which is just ventral to the left kidney and medial to the descending segment of the colon. The fluid collections are similar or improved compared with the previous study. As before, the left upper quadrant fluid collections as well as the fluid dorsal to the stomach demonstrate mild rim enhancement, nonspecific but can be associated with infection. No definite evidence of associated gas. Trace nonloculated fluid is also noted adjacent to the liver, along the right paracolic gutter as well as within the lower abdomen and pelvis. Focal fat stranding within the presacral space is likely nonspecific but may be related to the intra-abdominal nonloculated fluid. Inflammation related to a colitis would also be a consideration given the mild wall thickening of the left colon. Peritonitis cannot be excluded. No definite evidence of an organized pelvic fluid collection/abscess. The stomach is moderately distended, nonspecific. The loops of small bowel are relatively normal in caliber. Segments of small bowel in the right lower abdomen demonstrate mild wall thickening, nonspecific. No definite evidence of mechanical bowel obstruction or pneumatosis. The oral contrast has migrated to the right lower quadrant ileostomy. No definite evidence of extraluminal contrast-leak. The heart size is normal. No evidence of a pericardial effusion. The distal esophagus is decompressed. The liver demonstrates homogeneous decreased attenuation compatible with fatty infiltration. Subtle asymmetric enhancement involving the posterior segment of the right lobe of the liver may reflect fatty sparing. The gallbladder and bile ducts are decompressed. The pancreas, spleen, adrenal glands are unremarkable. No evidence of renal obstruction. A small nonobstructing 4 mm right renal calculus is again noted. The abdominal aorta is normal in caliber. Contrast also opacifies the portal venous system, mesenteric vessels, renal arteries, iliac arteries and visualized femoral arteries. Evaluation of the veins is limited by the early timing of the contrast bolus. A Head catheter is noted in the bladder which appears to be properly positioned. However the bladder remains mildly distended. The gas within the bladder is likely echogenic and related to the Heda. Mild wall thickening of the bladder is nonspecific and may reflect chronic changes related to the prostate gland. However a cystitis should also be considered. Trace gas and subtle infiltration of the abdominal wall is likely related to the recent surgical intervention. Third spacing of fluid may also be present. Similar appearing soft tissue infiltration is noted in the visualized thighs. A tiny punctate focus of increased attenuation is noted in the subcutaneous tissues near the umbilicus-midline abdominal wall incision (axial image 46). Although a tiny fistula cannot be excluded, a similar-appearing finding was present on the previous exam. Therefore the finding may reflect postoperative change. The wall thickening of the abdominal wall may reflect reactive and/or postoperative changes. A cellulitis would also be in the differential diagnosis in the appropriate clinical setting. No definite evidence of an acute osseous abnormality IMPRESSION: Bilateral simple appearing pleural effusions (left larger than right), similar to previous. Although a component of the adjacent basilar lung consolidation may reflect atelectasis, a multifocal pneumonia should also be considered given the patchy / nodular associated opacities. Status post recent bowel resection as detailed above. Multiple left abdominal fluid collections are again noted, overall improved. Trace nonloculated fluid is also noted in the lower abdomen and pelvis. Please see above for additional details. Thick-walled bladder. Correlation with urinalysis recommended. Clinical correlation also recommended to confirm the Head catheter is functioning appropriately. Tiny bladder calculi. Wall thickening of the left colon. Incomplete distention versus a colitis. A component of the pelvic fat stranding may reflect a colitis. Mild wall thickening of loops of small bowel in the right lower quadrant. Findings may reflect incomplete reactive changes related to the adjacent trace free fluid, incomplete distention or an enteritis. Postoperative changes and nonspecific infiltration of the abdominal wall subcutaneous tissues as detailed. Cellulitis cannot be excluded. Signed: Felix Sahni MD Report Verified Date/Time: 06/09/2018 20:03:19 Reading Location: [address] Reading Room Performing Organization Address City/State/Zipcode Phone Number [facility] XR chest 1 view portable / bedside (06/09/2018 8:41 AM WELDING TESTER)Only the most recent of14 resultswithin the time period is included. Narrative Performed At FINAL REPORT [facility] AP view of the chest dated 06/09/2018 COMPARISON: June 01, 2018 CLINICAL INFORMATION: Chest pain Comment:Heart is normal in size. Pulmonary vasculature is unremarkable. Infiltrate is seen in the left lower lobe suggestive of pneumonia worse than prior study. The rest of the lungs are clear. There is trace left pleural effusion. Right PICC line remains in place. Signed: Dima Avalos MD Report Verified Date/Time:06/09/2018 11:55:29 Reading Location: [facility] Radiology Reading Room Procedure Note Interface, External Ris In - 06/09/2018 11:57 AM WELDING TESTER FINAL REPORT AP view of the chest dated 06/09/2018 COMPARISON: June 01, 2018 CLINICAL INFORMATION: Chest pain Comment: Heart is normal in size. Pulmonary vasculature is unremarkable. Infiltrate is seen in the left lower lobe suggestive of pneumonia worse than prior study. The rest of the lungs are clear. There is trace left pleural effusion. Right PICC line remains in place. Signed: Dima Avalos MD Report Verified Date/Time: 06/09/2018 11:55:29 Reading Location: [facility] Radiology Reading Room Performing Organization Address [facility] Phone Number GE RIS FL esoph swallow funct with cine video (06/05/2018 1:30 PM WELDING TESTER) Narrative Performed At FINAL REPORT [facility] Modified barium swallow with speech pathology History: dysphagia Technique: Modified barium swallow was performed in conjunction with speech pathology. Examination utilized various textures of barium. Fluoroscopic observation was performed during swallowing. Total fluoroscopy time: 0.97 minutes Total number of films: 14 IMPRESSION: There is no evidence of laryngeal penetration or aspiration. Please refer to the speech pathology report for further details. Signed: Shaun Crooks MD Report Verified Date/Time:06/05/2018 13:24:30 Reading Location: [address] Ortho Consult Reading Room Procedure Note Interface, External Ris In - 06/05/2018 1:59 PM WELDING TESTER FINAL REPORT Modified barium swallow with speech pathology History: dysphagia Technique: Modified barium swallow was performed in conjunction with speech pathology. Examination utilized various textures of barium. Fluoroscopic observation was performed during swallowing. Total fluoroscopy time: 0.97 minutes Total number of films: 14 IMPRESSION: There is no evidence of laryngeal penetration or aspiration. Please refer to the speech pathology report for further details. Signed: Shaun Crooks MD Report Verified Date/Time: 06/05/2018 13:24:30 Reading Location: [address] Ortho Consult Reading Room Performing Organization Address [facility] Phone Number [employer] RIS CT drainage w cath placement (06/02/2018 6:15 PM WELDING TESTER) Narrative Performed At FINAL REPORT [facility] CT-guided fine-needle aspiration. CLINICAL HISTORY: Intra-abdominal fluid collection. COMPARISON STUDY: CT scan dated June 01, 2018. Informed consent was obtained from the patient's guardian and the risks of the procedure were explained including bleeding, infection, damage to bowel, blood vessels, nerves and other adjacent structures. This exam was performed according to our department dose optimization program which includes automated exposure control, adjustment of the mA and/or kV according to the patient's size and/or use of iterative reconstruction technique. Sedation: 1% Xylocaine was utilized as local analgesia. No moderate sedation was utilized as the patient is mute and has a history of hypoxia. TECHNIQUE: Using sterile technique, CT fluoroscopic guidance and a 22-gauge Chiba needle, a findings aspiration of the patient's 2.9 x 2.9 cm fluid collection located inferior to the spleen in contiguity with the perisplenic collection performed. 10 cc of simple appearing serous fluid was aspirated. Therefore, no catheter was left in place as there are no signs of infection. The fluid was sent to the lab for analysis. COMPLICATIONS: None. ESTIMATED BLOOD LOSS: Minimal. Patient Disposition: The patient was in the same state post procedure as preprocedure. IMPRESSION: Successful CT-guided fine-needle aspiration of a fluid collection located adjacent to the inferior aspect of the spleen in contiguity with the perisplenic collection. No catheter was left in place at the fluid appears serous. The patient is now afebrile and his white count has decreased. Signed: Raoul Portillo MD Report Verified Date/Time:06/02/2018 18:45:49 Reading Location: [facility] [id number] CT Body Reading Room Procedure Note Interface, External Ris In - 06/02/2018 6:48 PM WELDING TESTER FINAL REPORT CT-guided fine-needle aspiration. CLINICAL HISTORY: Intra-abdominal fluid collection. COMPARISON STUDY: CT scan dated June 01, 2018. Informed consent was obtained from the patient's guardian and the risks of the procedure were explained including bleeding, infection, damage to bowel, blood vessels, nerves and other adjacent structures. This exam was performed according to our department dose optimization program which includes automated exposure control, adjustment of the mA and/or kV according to the patient's size and/or use of iterative reconstruction technique. Sedation: 1% Xylocaine was utilized as local analgesia. No moderate sedation was utilized as the patient is mute and has a history of hypoxia. TECHNIQUE: Using sterile technique, CT fluoroscopic guidance and a 22-gauge Chiba needle, a findings aspiration of the patient's 2.9 x 2.9 cm fluid collection located inferior to the spleen in contiguity with the perisplenic collection performed. 10 cc of simple appearing serous fluid was aspirated. Therefore, no catheter was left in place as there are no signs of infection. The fluid was sent to the lab for analysis. COMPLICATIONS: None. ESTIMATED BLOOD LOSS: Minimal. Patient Disposition: The patient was in the same state post procedure as preprocedure. IMPRESSION: Successful CT-guided fine-needle aspiration of a fluid collection located adjacent to the inferior aspect of the spleen in contiguity with the perisplenic collection. No catheter was left in place at the fluid appears serous. The patient is now afebrile and his white count has decreased. Signed: Raoul Portillo MD Report Verified Date/Time: 06/02/2018 18:45:49 Reading Location: [facility] C[facility] CT Body Reading Room Performing Organization Address City/[facility] Phone Number RIS Body fluid culture + gram stain (06/02/2018 6:03 PM WELDING TESTER) Result No growth [facility] Gram Stain Result <1+ WBCs [facility] Gram Stain Result No organisms seen [facility] Specimen Body Fluid - Abdomen Performing Organization Address [facility] Phone Number [facility] [address] [place] [address] CENTER PT/aPTT (06/02/2018 3:29 AM WELDING TESTER)Only the most recent of3 resultswithin the time period is included. Protime 14.7 11.7 - 14.7 seconds [facility] INR 1.1 <=5.9 [facility] PTT 33.8 22.5 - 36.0 seconds [facility] Specimen Blood Narrative Performed At RECOMMENDED COUMADIN/WARFARIN INR THERAPY [facility] RANGES STANDARD DOSE: 2.0 - 3.0 Includes: PROPHYLAXIS for venous thrombosis, systemic embolization; TREATMENT for venous thrombosis and/or pulmonary embolus. HIGH RISK: Target INR is 2.5-3.5 for patients with mechanical heart valves. Performing Organization Address City/[facility] Phone Number [address] [address] [place] Prothrombin time/INR (06/02/2018 3:29 AM WELDING TESTER)Only the most recent of11 resultswithin the time period is included. Protime 14.7 11.7 - 14.7 seconds [facility] INR 1.1 <=5.9 [facility] Specimen Blood Narrative Performed At RECOMMENDED COUMADIN/WARFARIN INR THERAPY [facility] RANGES STANDARD DOSE: 2.0 - 3.0 Includes: PROPHYLAXIS for venous thrombosis, systemic embolization; TREATMENT for venous thrombosis and/or pulmonary embolus. HIGH RISK: Target INR is 2.5-3.5 for patients with mechanical heart valves. Performing Organization Address [facility] Phone Number [address] [address] [place] Hemoglobin and hematocrit (05/30/2018 10:45 PM WELDING TESTER)Only the most recent of12 resultswithin the time period is included. Hemoglobin 9.0 (L) 13.7 - 17.5 GM/DL [facility] Hematocrit 28.4 (L) 40.1 - 51.0 % [facility] Specimen Blood Performing Organization Address [facility] Phone Number [address] [address] [place] TRANSFUSION SERVICE REPORT - SCAN (05/30/2018 5:51 PM WELDING TESTER)Only the most recent of6 resultswithin the time period is included. 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 Clinical History CEREBRAL PALSY, HTN, SEIZURES HGB 8.6 HCT 26.8 % michelle sagastume [facility] RVT Height: 67 inches Weight: 69.4 kg (153 lbs) BSA: 1.8 m^2 BMI: 23.96 kg/m^2 HR: 82 bpm BP: 149/75 mmHg Summary 1. All of the LV segments are hyperkinetic . Estimated LVEF by qualitative assessment is increased (>70%). 2. Grade 1 diastolic dysfunction (impaired relaxation and low-normal LA pressure). 3. The right ventricular chamber size and systolic function are within normal limits based on limited views. 4. A large left pleural effusion is noted Previous Study No prior exam available for comparison. Signature Findings Technical Quality: Limited visualization due to poor acoustical window. Left Ventricle The left ventricle is chamber size (by PSLAX di mension) is normal (male - LVIDd 4.2-5.8cm) . No rmal LV wall thickness. All of the LV segments ar e hyperkinetic . Global LV systolic function hy perdynamic . Estimated LVEF by qualitative as sessment is increased (>70%) . High (cardiac in dex >4 L/min/m2) cardiac output state at rest is no donta. Grade 1 diastolic dysfunction (impaired re laxation and low-normal LA pressure). Left AtriumLA size is normal (16-34 ml/m2) . Right VentricleThe right ventricular chamber size and systolic fu nction are within normal limits based on limited vi ews. Right Atrium RA cavity size is normal . Aortic Valve No evidence of aortic stenosis. No evidence of aortic regurgitation. Mitral Valve Mild MV leaflet thickening. Mi ld mitral annular calcification. Tricuspid ValveUnable to estimate peak systolic PA pressure; in adequate TR velocity signal. Pulmonic Valve PV is not well visualized. AortaAortic root size (SInus of Valsalva diameter) is in determinate (not well seen) . PericardiumTrivial lateral pericardial effusion is visualized. IVC/SVC/PA/PV/PleuralA left pleural effusion is noted. Th e estimated RA pressure by IVC dynamics 5-10mmHg . Chambers/Structures Left Atrium LA Volume: 31.66 ml LA Area: 13.79 cm^2 LA Vol. Index: 18 ml/m^2 Left Ventricle LVIDd: 4.15 cm LV Septum Diastolic: 0.78 cm LV PW Diastolic: 0.8 cm LVOT Diameter: 1.79 cm Doppler/Quantitative Measurements Mitral Valve MV Peak E-Wave: 0.84 m/sMV Peak A-Wave: 0.94 m/s E/A Ratio: 0.9 Peak Gradient: 2.85 mmHg Deceleration Time: 238.3 msec MV Brandon. Peak: Tissue Doppler E' Lateral Velocity: 0.12 m/s E/E': 7.08 Aortic Valve Peak Velocity: 1.93 m/sMean Velocity: 1.34 m/s Peak Gradient: 14.85 mmHgMean Gradient: 8.06 mmHg AV Area (continuity): 2.56 cm^2 AV VTI: 36.07 cm AV DVI: 1.02 LVOT Peak Velocity: 1.78 m/s Peak Gradient: 12.6 mmHg Mean Velocity: 1.28 m/s Mean Gradient: 7.4 mmHg LVOT Diameter: 1.79 cmLVOT VTI: 36.74 cm LVOT Area: 2.52 cm^2LVOT SV:92.41 ml LVOT CO: 7.58 l/min LVOT CI: 4.21 l/min/m^2 Procedure Note Interface, External Ris In - 05/30/2018 12:17 PM WELDING TESTER Transthoracic Echocardiography Report (TTE) Demographics Patient Name JOSE LUIS VELA Date of Study 05/30/2018 SIDDHARTHA MARQUEZ Gender Male Visit Number [id number] Race Unknown Room Number [id number] Number Date of 1965 Referring Jennifer Johnson NP Physician Age 52 year(s) 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 Clinical History CEREBRAL PALSY, HTN, SEIZURES HGB 8.6 HCT 26.8 % michelle sagastume [facility] RVT Height: 67 inches Weight: 69.4 kg (153 lbs) BSA: 1.8 m^2 BMI: 23.96 kg/m^2 HR: 82 bpm BP: 149/75 mmHg Summary 1. All of the LV segments are hyperkinetic . Estimated LVEF by qualitative assessment is increased (>70%). 2. Grade 1 diastolic dysfunction (impaired relaxation and low-normal LA pressure). 3. The right ventricular chamber size and systolic function are within normal limits based on limited views. 4. A large left pleural effusion is noted Previous Study No prior exam available for comparison. Signature Findings Technical Quality: Limited visualization due to poor acoustical window. Left Ventricle The left ventricle is chamber size (by PSLAX dimension) is normal (male - LVIDd 4.2-5.8cm) . Normal LV wall thickness. All of the LV segments are hyperkinetic . Global LV systolic function hyperdynamic . Estimated LVEF by qualitative assessment is increased (>70%) . High (cardiac index >4 L/min/m2) cardiac output state at rest is noted. Grade 1 diastolic dysfunction (impaired relaxation and low-normal LA pressure). Left Atrium LA size is normal (16-34 ml/m2) . Right Ventricle The right ventricular chamber size and systolic function are within normal limits based on limited views. Right Atrium RA cavity size is normal . Aortic Valve No evidence of aortic stenosis. No evidence of aortic regurgitation. Mitral Valve Mild MV leaflet thickening. Mild mitral annular calcification. Tricuspid Valve Unable to estimate peak systolic PA pressure; inadequate TR velocity signal. Pulmonic Valve PV is not well visualized. Aorta Aortic root size (SInus of Valsalva diameter) is indeterminate (not well seen) . Pericardium Trivial lateral pericardial effusion is visualized. IVC/SVC/PA/PV/Pleural A left pleural effusion is noted. The estimated RA pressure by IVC dynamics 5-10mmHg . Chambers/Structures Left Atrium LA Volume: 31.66 ml LA Area: 13.79 cm^2 LA Vol. Index: 18 ml/m^2 Left Ventricle LVIDd: 4.15 cm LV Septum Diastolic: 0.78 cm LV PW Diastolic: 0.8 cm LVOT Diameter: 1.79 cm Doppler/Quantitative Measurements Mitral Valve MV Peak E-Wave: 0.84 m/s MV Peak A-Wave: 0.94 m/s E/A Ratio: 0.9 Peak Gradient: 2.85 mmHg Deceleration Time: 238.3 msec MV Brandon. Peak: Tissue Doppler E' Lateral Velocity: 0.12 m/s E/E': 7.08 Aortic Valve Peak Velocity: 1.93 m/s Mean Velocity: 1.34 m/s Peak Gradient: 14.85 mmHg Mean Gradient: 8.06 mmHg AV Area (continuity): 2.56 cm^2 AV VTI: 36.07 cm AV DVI: 1.02 LVOT Peak Velocity: 1.78 m/s Peak Gradient: 12.6 mmHg Mean Velocity: 1.28 m/s Mean Gradient: 7.4 mmHg LVOT Diameter: 1.79 cm LVOT VTI: 36.74 cm LVOT Area: 2.52 cm^2 LVOT SV:92.41 ml LVOT CO: 7.58 l/min LVOT CI: 4.21 l/min/m^2 Performing Organization Address City/[facility] Phone Number [facility] MKCKESSMAURICIO CPACS Blood gas, arterial (05/30/2018 3:18 AM WELDING TESTER)Only the most recent of6 resultswithin the time period is included. pH, Arterial 7.50 (H) 7.35 - 7.45 [facility] pCO2, Arterial 29 (L) 35 - 45 mmHg [facility] pO2, Arterial 208 (H) 80 - 90 mmHg [facility] O2 Sat, Arterial 99.5 (H) 96.0 - 97.0 % [facility] HCO3, Arterial 22 21 - 29 mmol/L [facility] Base Excess, Arterial -0.6 -2.0 - 3.0 mmol/L [facility] Patient Temperature 37.0 C [facility] FIO2 40.0 % [facility] Specimen Blood, Arterial - Line, Arterial Performing Organization Address [facility] Phone Number [facility] [address] [place] [address] [phone] CENTER Prepare Leuko-Red RBC (05/29/2018 11:54 PM WELDING TESTER)Only the most recent of3 resultswithin the time period is included. CROSSMATCH COMPATIBLE SAFETRACE TX Unit ABO O Pos SAFETRACE TX UNIT NUMBER [id number] SAFETRACE TX Status TRANSFUSED SAFETRACE TX Blood Bank Product RED BLOOD CELLS SAFETRACE TX PRODUCT CODE [id number] SAFETRACE TX Specimen Other Performing Organization Address City/[facility] Phone Number SAFETRACE TX CBC with platelet count + automated diff (05/29/2018 7:44 PM WELDING TESTER)Only the most recent of2 resultswithin the time period is included. WBC 15.9 (H) 3.5 - 10.5 K/L [facility] RBC 3.12 (L) 4.63 - 6.08 M/L [facility] Hemoglobin 7.8 (L) 13.7 - 17.5 GM/DL [facility] Hematocrit 24.9 (L) 40.1 - 51.0 % [facility] MCV 79.8 79.0 - 92.2 fL [facility] MCH 25.0 (L) 25.7 - 32.2 pg [facility] MCHC 31.3 (L) 32.3 - 36.5 GM/DL [facility] RDW 24.6 (H) 11.6 - 14.4 % [facility] Platelets 357 150 - 450 K/CU MM [facility] MPV 9.9 9.4 - 12.4 fL [facility] nRBC 0 0 - 0 /100 WBC [facility] % Neutros 87 % [facility] % Lymphs 5 % [facility] % Monos 5 % [facility] % Eos 1 % [facility] % Baso 0 % [facility] # Neutros 13.73 (H) 1.78 - 5.38 K/L [facility] # Lymphs 0.73 (L) 1.32 - 3.57 K/L [facility] # Monos 0.74 0.30 - 0.82 K/L [facility] # Eos 0.10 0.04 - 0.54 K/L [facility] # Baso 0.02 0.01 - 0.08 K/L [facility] Immature 3 (H) 0 - 1 % [facility] Granulocytes-[facility] Specimen Blood - Line, Arterial Performing Organization Address City/[facility]/Zipcode Phone Number [address] [address] [phone] CENTER [place] radial router operator in or 30 minute increments (05/29/2018 6:55 PM WELDING TESTER) Narrative Performed At PROCEDURE PERFORMED IN O.R. - PLEASE REFER TO THE INTRAOPERATIVE GE RIS REPORT. Procedure Note Interface, External Ris In - 05/30/2018 7:50 AM WELDING TESTER PROCEDURE PERFORMED IN O.R. - PLEASE REFER TO THE INTRAOPERATIVE REPORT. Performing Organization Address City/[facility] Phone Number GE RIS Vancomycin level, trough (05/29/2018 4:56 PM WELDING TESTER)Only the most recent of2 resultswithin the time period is included. Vancomycin Tr 21.7 (H) 10.0 - 20.0 ug/mL [facility] Specimen Blood - Line, Arterial Narrative Performed At Please draw 30 min before 4th dose [facility] Performing Organization Address [facility] Phone Number [address] [address] [phone] [place] Urea Nitrogen, random urine (05/29/2018 5:27 AM WELDING TESTER) Urea Nitrogen, Ur 720 mg/dL [facility] Specimen Urine - Urine, Head Narrative Performed At Reference Range: No Normals [facility] Performing Organization Address [facility]/Zipcode Phone Number [address] [address] [phone] [place] Sodium, random urine (05/29/2018 5:27 AM WELDING TESTER) Sodium Urine 38 meq/L [facility] Specimen Urine - Urine, Head Narrative Performed At Reference Range: No Normals [facility] Performing Organization Address City/[facility]/Zipcode Phone Number [address] [address] [phone] [place] Creatinine, random urine (05/29/2018 5:27 AM WELDING TESTER) Creatinine, Ur 32.9 mg/dL [facility] Specimen Urine - Urine, Head Narrative Performed At Reference Range: No Normals [facility] Performing Organization Address [facility] Phone Number [address] [address] [place] Lactic acid, arterial, whole blood (05/29/2018 5:20 AM WELDING TESTER)Only the most recent of6 resultswithin the time period is included. Lactate, Art 0.9Comment: Specimen 0.5 - 2.2 mmol/L [facility] slightly hemolyzed [facility] Specimen Blood, Arterial - Line, Arterial Performing Organization Address [facility] Phone Number [address] [address] [place] Transfuse Leuko-Red RBC (05/28/2018 3:14 PM WELDING TESTER)Only the most recent of7 resultswithin the time period is included.Anaerobic culture (05/27/2018 8:29 PM WELDING TESTER) Result No anaerobes isolated [facility] Specimen Other - Abdomen Performing Organization Address [facility] Phone Number [address] [address] [place] Surgically obtained culture + gram stain (05/27/2018 8:29 PM WELDING TESTER) Result RHONDA DUBLINIENSIS (A) [facility] Gram Stain Result <1+ White blood cells seen [facility] Gram Stain Result No organisms seen [facility] Specimen Other - Abdomen Organism Antibiotic Method Susceptibility Rhonda dubliniensis Fluconazole 0.12: Susceptible Rhonda dubliniensis Micafungin 0.03: Susceptible Rhonda dubliniensis Voriconazole 0.008: Susceptible Performing Organization Address [facility] Phone Number [facility] [address] CENTER SPIN/CONCENTRATION CHARGE (05/27/2018 8:29 PM WELDING TESTER) Concentration charged Done [facility] Specimen Other - Abdomen Performing Organization Address [facility]/Zipcode Phone Number [address] [address] CENTER Type and screen (05/27/2018 6:12 PM WELDING TESTER) Ab Scrn NEGATIVEComment: peg [facility] ABO Grouping O [facility] Rh Factor POS [facility] Specimen Blood Performing Organization Address City/[facility]/Zipcode Phone Number [address] [address] Blood culture (05/27/2018 3:33 PM WELDING TESTER)Only the most recent of6 resultswithin the time period is included. Result No growth in 5 days [facility] Specimen Blood - Arm, Left Performing Organization Address [facility]/Zipcode Phone Number [address] [address] CENTER Urinalysis w/Microscopic + Reflex to Culture (05/27/2018 2:42 PM WELDING TESTER)Only the most recent of3 resultswithin the time period is included. Color, UA Yellow [facility] Clarity, UA Clear [facility] Specific [employer], UA 1.022 1.001 - 1.035 [facility] pH, UA 5.5 5.0 - 8.0 [facility] Protein, UA 20 mg/dL (A) Negative [facility] Glucose, UA Negative Negative [facility] Ketones, UA Negative Negative [facility] Bilirubin, UA Negative Negative [facility] Blood, UA Trace (A) Negative [facility] Nitrite, UA Negative Negative [facility] Leukocytes, UA Negative Negative [facility] Urobilinogen, UA 0.2 0.2 - 1.0 mg/dL [facility] RBC, UA 6 /HPF [facility] WBC, UA 3 /HPF [facility] Bacteria, UA Occasional [facility] Mucus Occasional [facility] Squam Epithel, UA <1 /HPF [facility] Hyaline Casts, UA 2 /LPF [facility] Granular Casts, UA 1 /LPF [facility] Yeast Moderate [facility] Specimen Source [facility] Specimen Urine - Urine, Voided Performing Organization Address City/[facility] [facility] Phone Number [address] [address] [phone] CENTER Lactic acid, venous, whole blood (05/27/2018 4:33 AM WELDING TESTER)Only the most recent of11 resultswithin the time period is included. Lactate, Venous 1.3 0.5 - 2.2 mmol/L [facility] Specimen Blood Performing Organization Address City/[facility] Phone Number [address] [address] CENTER Clostridium difficile [facility] Toxin (05/26/2018 5:09 AM WELDING TESTER) C. Difficle Toxin Negative Negative [facility] C. Difficile [facility] Antigen NegativeComment: No Negative [facility] indication of Clostridium [facility] [place] difficile infection and no colonization. Discontinue enteric isolation and therapy. Specimen Stool - Stool Narrative Performed At Testing performed by Alere Rapid Cassette [facility] Assay.For GDH, published sensitivity of the assay is 98.7% compared to cytotoxicity testing.For Toxin AB, published sensitivity is 87.8% and specificity 99.4% compared to cytotoxicity testing. Verification of kit performance was done by the [facility] Microbiology Lab prior to clinical use. Performing Organization Address City/[facility] Phone Number [address] [address] [phone] [place] Calcium, Ionized (05/26/2018 3:04 AM WELDING TESTER)Only the most recent of3 resultswithin the time period is included. Calcium, Ion 1.07 (L) 1.12 - 1.27 mmol/L [facility] pH, Blood 7.44 [facility] Specimen Blood Performing Organization Address [facility] Phone Number [address] [address] [phone] [place] RHONDA ANTIGEN TITER (05/25/2018 3:30 PM WELDING TESTER) Rhonda Antigen Titer 1:8 [facility] Specimen Blood Performing Organization Address [facility] Phone Number [address] [address] [place] Rhonda antigen with reflex to titer (05/25/2018 3:30 PM WELDING TESTER) Rhonda Antigen Positive [facility] Specimen Blood Performing Organization Address [facility] Phone Number [address] [address] [place] Urine culture (05/23/2018 2:24 PM WELDING TESTER) Result PSEUDOMONAS AERUGINOSA (A) [facility] Specimen Urine - Urine, Clean Catch Narrative Performed At <10,000 col/mL Gram negative suzette of a second [facility] type Organism Antibiotic Method Susceptibility Pseudomonas aeruginosa Amikacin <=8: Susceptible Pseudomonas aeruginosa Aztreonam <=1: Susceptible Pseudomonas aeruginosa Cefepime <=4: Susceptible Pseudomonas aeruginosa Ceftazidime 16: Resistant Pseudomonas aeruginosa Ciprofloxacin <=0.5: Susceptible Pseudomonas aeruginosa Gentamicin <=2: Susceptible Pseudomonas aeruginosa Imipenem <=0.5: Susceptible Pseudomonas aeruginosa Levofloxacin <=1: Susceptible Pseudomonas aeruginosa Meropenem <=0.5: Susceptible Pseudomonas aeruginosa Piperacillin 64: Resistant Pseudomonas aeruginosa Piperacillin + Tazobactam 32: Resistant Pseudomonas aeruginosa Tobramycin <=2: Susceptible Performing Organization Address City/State/Zipcode Phone Number [address] [phone] CENTER XR abdomen / KUB 1 view (05/23/2018 11:10 AM WELDING TESTER)Only the most recent of6 resultswithin the time period is included. Narrative Performed At FINAL REPORT [employer] Abdomen one view Comparison: 05/22/2018 Reason for exam:Evaluation of ileus Findings: Gaseous distention of large bowel appear grossly unchanged. A few loops of small bowel also appear mildly distended. No free air is identified. Feeding tube projects over the gastric fundal region. Signed: Antwan River MD Report Verified Date/Time:05/23/2018 11:32:04 Reading Location: [facility] Radiology Reading Room Procedure Note Interface, External Ris In - 05/23/2018 11:34 AM WELDING TESTER FINAL REPORT Abdomen one view Comparison: 05/22/2018 Reason for exam: Evaluation of ileus Findings: Gaseous distention of large bowel appear grossly unchanged. A few loops of small bowel also appear mildly distended. No free air is identified. Feeding tube projects over the gastric fundal region. Signed: Antwan River MD Report Verified Date/Time: 05/23/2018 11:32:04 Reading Location: [facility] Radiology Reading Room Performing Organization Address City/State/Zipcode Phone Number [employer] POC-Lactic Acid, Arterial (05/23/2018 3:02 AM WELDING TESTER)Only the most recent of2 resultswithin the time period is included. POC-Lactic Acid, 2.3 (H)Comment: 0.4 - 1.3 mmol/L [facility] Arterial TESTED AT [address] [address] Specimen Blood Performing Organization Address [facility] Phone Number [address] [address] [phone] [place] POCT-HEMATOCRIT (05/23/2018 2:57 AM WELDING TESTER)Only the most recent of2 resultswithin the time period is included. POC-Hematocrit 29 (L)Comment: TESTED AT 40 - 50 % [address] [address] Specimen Blood Performing Organization Address [facility] Phone Number [address] [address] [place] POCT-HEMOGLOBIN (05/23/2018 2:57 AM WELDING TESTER)Only the most recent of2 resultswithin the time period is included. POC-Hemoglobin 9.9 (L)Comment: TESTED AT 13.0 - 16.8 g/dL [address] [address]KTE[place] AT [address] [address] Specimen Blood Performing Organization Address [facility] Phone Number [address] [address] [phone] [place] POCT-GLUCOSE (05/23/2018 2:57 AM WELDING TESTER)Only the most recent of2 resultswithin the time period is included. POC-Glucose 115 (H)Comment: TESTED AT 70 - 110 mg/dL [address] [address] Specimen Blood Performing Organization Address [facility] Phone Number [address] [address] [place] POC-Sodium (05/23/2018 2:57 AM WELDING TESTER)Only the most recent of2 resultswithin the time period is included. POC-Sodium 141Comment: TESTED AT [facility] 135 - 148 meq/L [address] [address] Specimen Blood Performing Organization Address City/[facility]/Zipcode Phone Number [address] [address] [place] POC-Potassium (05/23/2018 2:57 AM WELDING TESTER)Only the most recent of2 resultswithin the time period is included. POC-Potassium 3.2 (L)Comment: TESTED AT 3.6 - 5.5 meq/L [address] [address] Specimen Blood Performing Organization Address City/[facility]/Zipcode Phone Number [address] [address] [phone] [place] POC-Calcium ionized (05/23/2018 2:57 AM WELDING TESTER)Only the most recent of2 resultswithin the time period is included. POC-Calcium Ionized 1.18Comment: TESTED AT 1.12 - 1.27 mmol/L [address] [address] Specimen Blood Performing Organization Address City/[facility] Phone Number [address] [address] [phone] [place] POC-Blood gases, arterial (05/23/2018 2:57 AM WELDING TESTER)Only the most recent of2 resultswithin the time period is included. Temp. Celsius-POC 38.3 [facility] FIO2-POC 41Comment: TESTED AT [address] [address] pH, Arterial-POC 7.466 (H) 7.350 - 7.450 [facility] PCO2, Arterial-POC 24.2 (L) 35.0 - 45.0 mm Hg [facility] PO2, Arterial-POC 58.0 (L) 80.0 - 90.0 mm Hg [facility] SO2, Arterial-POC 91.0 (L) 96.0 - 97.0 % [facility] HCO3, Arterilal-POC 17.2 (L) 21.0 - 29.0 meq/L [facility] BE, Arterial-POC -6.0 (L) -2.0 - 3.0 meq/L [facility] Specimen Blood Performing Organization Address City/State/Zipcode Phone Number [facility] [address] [place] [address] [place] Oxygen saturation, measured (05/17/2018 4:27 PM WELDING TESTER) O2 Saturation (Measured) 52.1 % [facility] Specimen Blood - Arm, Left Performing Organization Address City/State/Zipcode Phone Number [address] [address] [phone] [place] Manual Differential (05/17/2018 4:09 PM WELDING TESTER) % Neutros 49 % [facility] % Lymphs 6 % [facility] % Monos 3 % [facility] % Metamyelo 1 (H) 0 - 0 % [facility] % Bands 41 (H) 0 - 10 % [facility] # Neutros 1.91 1.78 - 5.38 K/ul [facility] # Lymphs 0.23 (L) 1.32 - 3.57 K/ul [facility] # Monos 0.12 (L) 0.30 - 0.82 K/uL [facility] # Metamyelo 0.04 (H) 0.00 - 0.00 K/uL [facility] # Bands 1.60 (H) 0.00 - 0.80 K/uL [facility] Total Counted 100 [facility] nRBC (manual) 1 (H) 0 - 0 /100 WBC [facility] WBC Morphology Normal [facility] Giant Platelet Present [facility] Anisocytosis 1+ few [facility] Poikilocytes 2+ moderate [facility] Spherocytes 1+ few [facility] Elliptocytes 1+ few [facility] Artifact Present [facility] Platelet Conc Adequate [facility] Specimen Blood Narrative Performed At Received comment: [facility] User comments: Slide comments: Performing Organization Address City/[facility] Phone Number [facility] [address] [place] [address] [place] aPTT (05/17/2018 4:09 PM WELDING TESTER) PTT 40.6 (H) 22.5 - 36.0 seconds [facility] Specimen Blood Performing Organization Address City/[facility] Phone Number [facility] [address] [place] [address] [place] ECG 12 lead (05/17/2018 2:46 PM WELDING TESTER)Only the most recent of2 resultswithin the time period is included. Narrative Performed At Ventricular Rate 118 BPM GE MUSE Atrial Rate 118 BPM P-R Interval 116 ms QRS Duration 84 ms Q-T Interval 448 ms QTC Calculation(Bazett) 627 ms P Fowler 48 degrees R Fowler 42 degrees T Fowler 46 degrees Sinus tachycardia Nonspecific ST and T wave abnormality Prolonged QT Abnormal ECG When compared with ECG of 17-MAY-2018 11:01, Ventricular rate has decreased Confirmed by Norm CASTLE BASANT ([id number]) on 05/19/2018 2:13:41 PM Procedure Note Interface, External Ris In - 05/19/2018 2:13 PM WELDING TESTER Ventricular Rate 118 BPM Atrial Rate 118 BPM P-R Interval 116 ms QRS Duration 84 ms Q-T Interval 448 ms QTC Calculation(Bazett) 627 ms P Fowler 48 degrees R Fowler 42 degrees T Fowler 46 degrees Sinus tachycardia Nonspecific ST and T wave abnormality Prolonged QT Abnormal ECG When compared with ECG of 17-MAY-2018 11:01, Ventricular rate has decreased Confirmed by Norm CASTLE BASANT ([id number]) on 05/19/2018 2:13:41 PM Performing Organization Address [facility] Phone Number GE MUSE POC-Lactic Acid, Venous (05/17/2018 1:29 PM WELDING TESTER) POC-Lactic Acid, Venous 2.3 (H)Comment: 0.9 - 1.7 mmol/L [facility] TESTED AT [address] [address] Specimen Blood Performing Organization Address [facility] Phone Number [address] [address] CENTER Potassium-Stat Lab (05/15/2018 6:27 PM WELDING TESTER)Only the most recent of2 resultswithin the time period is included. Potassium 3.1 (L) 3.6 - 5.5 meq/L [facility] Specimen Blood, Arterial Performing Organization Address [facility] [place] Number [address] [address] [place] Sodium Na-Stat Lab (05/15/2018 6:27 PM WELDING TESTER)Only the most recent of2 resultswithin the time period is included. Sodium 141 135 - 148 meq/L [facility] Specimen Blood, Arterial Performing Organization Address [facility] Phone Number [address] [address] [phone] CENTER Glucose-Stat Lab (05/15/2018 6:27 PM WELDING TESTER)Only the most recent of2 resultswithin the time period is included. Glucose 144 (H) 70 - 110 mg/dL [facility] Specimen Blood, Arterial Performing Organization Address [facility] Phone Number [address] [address] [phone] CENTER HGB/HCT (H&H)-Stat Lab (05/15/2018 6:27 PM WELDING TESTER)Only the most recent of2 resultswithin the time period is included. Hemoglobin 8.9 (L) 13.0 - 16.8 g/dL [facility] Hematocrit 26.0 (L) 40.0 - 50.0 % [facility] Specimen Blood, Arterial Performing Organization Address City/State/Zipcode Phone Number [facility] [address] [place], [place] [address] [phone] CENTER Tissue Exam (05/15/2018 6:16 PM WELDING TESTER)Only the most recent of2 resultswithin the time period is included. Case Report Surgical Pathology Report Case: [id number] [facility] Authorizing Provider:Jose Luis Rubin MD Collected: 05/15/[address] [facility] Ordering Location: [facility] Received: 05/16/2018 0841 SERVICES Pathologist: Cyril Chow MD Specimen:Large Intestine, NOS, EXTENDED RIGHT HEMICOLECTOMY DIAGNOSIS A. COLON, NOT OTHERWISE SPECIFIED, EXTENDED RIGHT HEMICOLECTOMY: [facility] - INVASIVE ADENOCARCINOMA, MODERATELY DIFFERENTIATED, INVOLVING HEPATIC FLEXURE [facility] - TUMOR MEASURES 2.3 CM IN GREATEST DIMENSION - TUMOR INVADES THROUGH MUSCULARIS PROPRIA INTO THE PADMINI COLORECTAL TISSUE - MARGINS, NEGATIVE FOR MALIGNANCY - LYMPHOVASCULAR INVASION IS PRESENT - NO DEFINITE PERINEURAL INVASION IS IDENTIFIED - ONE TUMOR DEPOSIT - TWENTY-NINE LYMPH NODES NEGATIVE FOR METASTATIC CARCINOMA (0/29) - PATHOLOGIC STAGE CLASSIFICATION [id number] - APPENDIX WITH FIBROUS OBLITERATION - UNREMARKABLE ILEUM Signing Pathologist Direct Phone Line: [phone] COMMENT MMR immunohistochemistry was [facility] performed on the biopsy sample [facility] ([id number]) which shows the tumor to be MSI stable. SYNOPTIC REPORT COLON AND RECTUM: Resection, Including Transanal Disk Excision of Rectal Neoplasms(Colon Res - All Specimens) [facility] SPECIMEN Procedure:extended right hemicolectomy TUMOR Tumor Site:Hepatic flexure Histologic Type:Adenocarcinoma Histologic Grade:G2: Moderately differentiated Tumor Size:Greatest dimension in Centimeters (cm): 2.3 Centimeters (cm) Additional Dimension in Centimeters (cm):1.9 Centimeters (cm ) Additional Dimension in Centimeters (cm):1.3 Centimeters (cm ) Tumor Deposits:Present Number of Deposits:1 Tumor Extent: Tumor Extension:Tumor invades through the muscularis propria into pericolorectal tissue Macroscopic Tumor Perforation:Not identified Accessory Findings: Lymphovascular Invasion:Present :Small vessel lymphovascular invasion Perineural Invasion:Not identified Treatment Effect:No known presurgical therapy MARGINS Margins:All margins are uninvolved by invasive carcinoma, high- grade dysplasia, intramucosal adenocarcinoma, and adenoma Margins Examined:Proximal Margins Examined:Distal Margins Examined:Radial or Mesenteric LYMPH NODES Number of Lymph Nodes Involved:0 Number of Lymph Nodes Examined:29 PATHOLOGIC STAGE CLASSIFICATION (pTNM, AJCC 8th Edition) TNM Descriptors:Not applicable Primary Tumor (pT):pT3 Regional Lymph Nodes (pN):pN1c CPT Code(s) 620[address] [facility] CLINICAL HISTORY Malignant neoplasm of colon [facility] SPECIMEN SOURCE Extended right hemicolectomy [facility] GROSS DESCRIPTION The specimen is received in a formalin-filled container and labeled with the patient's information labeled "extended right hemicolectomy" and consists of right hemicolectomy measuring 53 cm in length x [facility] 8 cm in circumference with terminal ileum measuring 13 cm in length x 4 cm in circumference and appendix measuring 5.2 cm in length x 0.6 cm in diameter. The colon has thin attached pericolonic fat measuring up to 1.[address] [facility] The colon is opened longitudinally to reveal a centrally ulcerated mass with heaped up borders measuring 2.3 x 1.9 x 1.3 cm, located 31 cm from the distal margin and 30 cm from the proximal margin. Area of the tumor is marked with tattoo ink. Remainder of the colon and terminal ileum and appendix are unremarkable. The adipose tissue is sectioned yielding 29 marcos lymph nodes measuring up to 0.8 cm. One lymph node is off white, possibly tumor involved which is cassette 12. Section code: A1, resection margin en face; A2, appendix; A3 through A7, entire lesion; A8 through A11, five lymph nodes in each cassette; A12, possible positive lymph node bisected; A13, five lymph nodes; A14, three lymph nodes. CG /pl MICROSCOPIC DESCRIPTION Performed. [facility] Specimen Tissue - Large Intestine, NOS Performing Organization Address City/State/Zipcode Phone Number [facility] [address] [place] [address] CENTER Type and screen, automated (05/15/2018 6:12 AM WELDING TESTER)Only the most recent of2 resultswithin the time period is included. ABO/RH AUTOMATED (BEAKER) O POSITIVE [facility] Ab Scrn NEGATIVE [facility] Specimen Blood Performing Organization Address City/State/Zipcode Phone Number [facility] [address] [place] [address] CT chest with IV contrast (05/14/2018 11:23 PM WELDING TESTER) Narrative Performed At FINAL REPORT [facility] TECHNIQUE: CT scan of the chest WITH intravenous contrast. Dose modulation, iterative reconstruction, and/or weight-based adjustment of the mA/kV was utilized to reduce the radiation dose to as low as reasonably achievable. INDICATION: Colon cancer staging. COMPARISON: CT of the abdomen and pelvis from 05/12/2018. FINDINGS: LINES/TUBES: None. LUNGS AND AIRWAYS: Mild groundglass opacity in the right upper lobe on axial image 24 measures 1.4 cm and 1.4 cm. A nodule on the right horizontal fissure measures 4 mm on image 25 is most likely a fissural lymph node. The mild ground glass opacity in the lingula measures up to 1.6 cm on axial image 34. PLEURA: Small bilateral pleural effusions. HEART AND MEDIASTINUM: The visualized thyroid gland is normal. No significant mediastinal, hilar, or axillary lymphadenopathy. Calcified, nonenlarged subcarinal lymph nodes. The heart and pericardium are within normal limits. SOFT TISSUES AND BONES: Mild degenerative changes of the visualized spine. UPPER ABDOMEN: The stomach is mildly distended. IMPRESSION: 1.No metastatic disease in the chest. 2.Small bilateral pleural effusions. 3.The groundglass opacities in the right upper lobe and lingula are most likely infectious. However, a follow-up CT of the chest is recommended in 3-6 months to exclude a neoplasm. Signed: Gorge Noble MD Report Verified Date/Time:05/15/2018 16:52:54 Reading Location: [place] [id number] CT Body Reading Room Procedure Note Interface, External Ris In - 05/15/2018 4:55 PM WELDING TESTER FINAL REPORT TECHNIQUE: CT scan of the chest WITH intravenous contrast. Dose modulation, iterative reconstruction, and/or weight-based adjustment of the mA/kV was utilized to reduce the radiation dose to as low as reasonably achievable. INDICATION: Colon cancer staging. COMPARISON: CT of the abdomen and pelvis from 05/12/2018. FINDINGS: LINES/TUBES: None. LUNGS AND AIRWAYS: Mild groundglass opacity in the right upper lobe on axial image 24 measures 1.4 cm and 1.4 cm. A nodule on the right horizontal fissure measures 4 mm on image 25 is most likely a fissural lymph node. The mild ground glass opacity in the lingula measures up to 1.6 cm on axial image 34. PLEURA: Small bilateral pleural effusions. HEART AND MEDIASTINUM: The visualized thyroid gland is normal. No significant mediastinal, hilar, or axillary lymphadenopathy. Calcified, nonenlarged subcarinal lymph nodes. The heart and pericardium are within normal limits. SOFT TISSUES AND BONES: Mild degenerative changes of the visualized spine. UPPER ABDOMEN: The stomach is mildly distended. IMPRESSION: 1.No metastatic disease in the chest. 2.Small bilateral pleural effusions. 3.The groundglass opacities in the right upper lobe and lingula are most likely infectious. However, a follow-up CT of the chest is recommended in 3-6 months to exclude a neoplasm. Signed: Gorge Noble MD Report Verified Date/Time: 05/15/2018 16:52:54 Reading Location: [facility] B1 C013Y CT Body Reading Room Performing Organization Address City/State/Zipcode Phone Number RIS REPORT OF PROCEDURE - ENDOSCOPY URL (05/12/2018 10:31 AM WELDING TESTER) Narrative Performed At REPORT OF PROCEDURE - ENDOSCOPY URL (05/12/2018 10:28 AM WELDING TESTER) Narrative Performed At Iron, TIBC, % sat. (without ferritin) (05/11/2018 4:20 PM WELDING TESTER) Iron 15.0 (L) 40.0 - 160.0 ug/dL [facility] TIBC 261 250 - 450 ug/dL [facility] Iron % Saturation 6 (L) 20 - 55 % [facility] Specimen Blood - Arm, Right Narrative Performed At Add to previous sample [facility] Add to previous sample Performing Organization Address City/[facility] Phone Number [address] [address] [place] Ferritin (05/11/2018 4:20 PM WELDING TESTER) Ferritin 6 5 - 275 ng/mL [facility] Specimen Blood - Arm, Right Narrative Performed At Add to previous sample [facility] Add to previous sample Performing Organization Address City/[facility] Phone Number [facility] [address] [place] [phone] [place] after 06/16/2017 Insurance Payer Benefit Plan / Group Subscriber ID Type Phone Address [employer] ALL xxxxxxxxx Maps Contracted MEDICAID [place] xxxxxxxxx Medicaid Advance Directives For more information, please contact:[address] [phone] Code Status Date Activated Date Inactivated Comments Full Code 05/09/2018 8:29 PM This code status was determined by: Patient
--- OUTSIDE RECORDS SUMMARY | 2018-06-17 15:07 | XMS REPORT ---
:1965 Author Organization [facility] Address [address] [place] [address] [address]. [address] [place] [address] Care Team Providers Name Role Phone TAYLOR NICHOLSENDRA Unavailable Unavailable Problems This patient has no known problems. Allergies, Adverse Reactions, Alerts This patient has no known allergies or adverse reactions. Medications This patient has no known medications. Results Test Description Test Time Test Comments Text Results Atomic Results Result Comments POCT-GLUCOSE METER 2018-06-12 11:48:00 Test Item Value Reference Range Comments POC-GLUCOSE METER (BEAKER) (test 116 mg/dL 70-110 TESTED AT [address] wnzq=0586) [facility] [address] POCT-GLUCOSE [id number] 06:19:00 Test Item Value Reference Range Comments POC-GLUCOSE METER (BEAKER) 124 mg/dL 70-110 TESTED AT [address] (test qnin=3706) [facility] [address] [id number] 05:56:00 Test Item Value Reference Range Comments MAGNESIUM (BEAKER) (test xaxv=063) 1.0 mg/dL 1.6-2.6 [id number] 05:53:00 Test Item Value Reference Range Comments PHOSPHORUS (BEAKER) (test crjp=249) 3.2 mg/dL 2.3-4.7 BASIC METABOLIC [id number] 05:53:00 Test Item Value Reference Range Comments SODIUM (BEAKER) (test 140 meq/L 136-145 uosz=777) POTASSIUM (BEAKER) (test 4.0 meq/L 3.5-5.1 gxeh=181) CHLORIDE (BEAKER) (test 110 meq/L 98-107 imfm=910) CO2 (BEAKER) (test 24 meq/L 22-29 vccq=460) BLOOD UREA NITROGEN 6 mg/dL 7-21 (BEAKER) (test iscs=564) CREATININE (BEAKER) (test 0.69 mg/dL 0.57-1.25 nrqt=283) GLUCOSE RANDOM (BEAKER) 356 mg/dL 70-105 (test akfr=587) CALCIUM (BEAKER) (test 8.2 mg/dL 8.4-10.2 ejru=794) EGFR (BEAKER) (test 120 mL/min/1.73 sq m ESTIMATED GFR IS NOT redw=0833) ACCURATE CREATININE CLEARANCE IN PREDICTING GLOMERULAR FILTRATION RATE. ESTIMATED GFR IS NOT APPLICABLE FOR DIALYSIS PATIENTS. CBC (HEMOGRAM ONLY)2018-06-12 05:43:00 Test Item Value Reference Range Comments WHITE BLOOD CELL COUNT (BEAKER) (test vdaw=677) 8.6 K/ L 3.5-10.5 RED BLOOD CELL COUNT (BEAKER) (test fufe=477) 3.26 M/ L 4.63-6.08 HEMOGLOBIN (BEAKER) (test uwah=317) 8.1 GM/DL 13.7-17.5 HEMATOCRIT (BEAKER) (test nixh=357) 27.4 % 40.1-51.0 MEAN CORPUSCULAR VOLUME (BEAKER) (test pzke=904) 84.0 fL 79.0-92.2 MEAN CORPUSCULAR HEMOGLOBIN (BEAKER) (test 24.8 pg 25.7-32.2 cerr=407) MEAN CORPUSCULAR HEMOGLOBIN CONC (BEAKER) (test 29.6 GM/DL 32.3-36.5 omdl=822) RED CELL DISTRIBUTION WIDTH (BEAKER) (test 22.8 % 11.6-14.4 pmtm=102) PLATELET COUNT (BEAKER) (test aart=849) 389 K/CU MM 150-450 MEAN PLATELET VOLUME (BEAKER) (test agak=680) 8.6 fL 9.4-12.4 NUCLEATED RED BLOOD CELLS (BEAKER) (test 0 /100 WBC 0-0 ogsg=534) POCT-GLUCOSE [id number] 23:37:00 Test Item Value Reference Range Comments POC-GLUCOSE METER (BEAKER) 170 mg/dL 70-[address] [facility] [address] [facility] (test mydb=3023) [facility] [address] POCT-GLUCOSE [id number] 17:43:00 Test Item Value Reference Range Comments POC-GLUCOSE METER (BEAKER) 154 mg/dL 70-[address] [facility] [address] [facility] (test ehqe=5138) [facility] [address] POCT-GLUCOSE [id number] 11:55:00 Test Item Value Reference Range Comments POC-GLUCOSE METER (BEAKER) 118 mg/dL 70-[address] [facility] [address] [facility] (test yjhm=6845) [facility] [address] [id number] 05:31:00 Test Item Value Reference Range Comments TRIGLYCERIDES (BEAKER) (test iyfl=877) 125 mg/dL TRIGLYCERIDE REFERENCE RANGELow Risk <150Borderline Risk 150-199High Risk 200-499Very High Risk>=[id number] 05:31:00 Test Item Value Reference Range Comments MAGNESIUM (BEAKER) (test qqhi=582) 1.6 mg/dL 1.6-2.6 [id number] 05:31:00 Test Item Value Reference Range Comments PHOSPHORUS (BEAKER) (test nmwy=030) 3.2 mg/dL 2.3-4.7 BASIC METABOLIC [id number] 05:31:00 Test Item Value Reference Range Comments SODIUM (BEAKER) (test 138 meq/L 136-145 txlh=017) POTASSIUM (BEAKER) (test 4.1 meq/L 3.5-5.1 tswt=021) CHLORIDE (BEAKER) (test 108 meq/L 98-107 yntx=721) CO2 (BEAKER) (test 24 meq/L 22-29 pedw=148) BLOOD UREA NITROGEN 7 mg/dL 7-21 (BEAKER) (test vxex=034) CREATININE (BEAKER) (test 0.64 mg/dL 0.57-1.25 felx=305) GLUCOSE RANDOM (BEAKER) 123 mg/dL 70-105 (test ypmt=320) CALCIUM (BEAKER) (test 8.2 mg/dL 8.4-10.2 evvk=343) EGFR (BEAKER) (test 131 mL/min/1.73 sq m ESTIMATED GFR IS NOT pytz=5462) ACCURATE CREATININE CLEARANCE IN PREDICTING GLOMERULAR FILTRATION RATE. ESTIMATED GFR IS NOT APPLICABLE FOR DIALYSIS PATIENTS. HEPATIC FUNCTION [id number] 05:31:00 Test Item Value Reference Range Comments TOTAL PROTEIN (BEAKER) (test heuw=179) 5.2 gm/dL 6.0-8.3 ALBUMIN (BEAKER) (test uaqg=3194) 2.0 g/dL 3.5-5.0 BILIRUBIN TOTAL (BEAKER) (test fxpb=549) 0.2 mg/dL 0.2-1.2 BILIRUBIN DIRECT (BEAKER) (test iwrw=227) 0.1 mg/dL 0.1-0.5 ALKALINE PHOSPHATASE (BEAKER) (test jnsu=813) 202 U/L 40-150 AST (SGOT) (BEAKER) (test ntbd=120) 28 U/L 5-34 ALT (SGPT) (BEAKER) (test uwih=814) 17 U/L 6-55 C-REACTIVE [id number] 05:31:00 Test Item Value Reference Range Comments C-REACTIVE PROTEIN (BEAKER) (test sqcz=680) 4.10 mg/dL 0.00-0.50 [id number] 05:19:00 Test Item Value Reference Range Comments PREALBUMIN (BEAKER) (test gzqq=772) 11 mg/dL 14-45 CBC (HEMOGRAM ONLY)2018-06-11 05:07:00 Test Item Value Reference Range Comments WHITE BLOOD CELL COUNT (BEAKER) (test afva=370) 9.6 K/ L 3.5-10.5 RED BLOOD CELL COUNT (BEAKER) (test quhi=001) 3.34 M/ L 4.63-6.08 HEMOGLOBIN (BEAKER) (test sahl=983) 8.3 GM/DL 13.7-17.5 HEMATOCRIT (BEAKER) (test orzo=700) 27.8 % 40.1-51.0 MEAN CORPUSCULAR VOLUME (BEAKER) (test glgy=731) 83.2 fL 79.0-92.2 MEAN CORPUSCULAR HEMOGLOBIN (BEAKER) (test 24.9 pg 25.7-32.2 hard=943) MEAN CORPUSCULAR HEMOGLOBIN CONC (BEAKER) (test 29.9 GM/DL 32.3-36.5 svmy=452) RED CELL DISTRIBUTION WIDTH (BEAKER) (test 23.0 % 11.6-14.4 qlye=202) PLATELET COUNT (BEAKER) (test tpuk=043) 433 K/CU MM 150-450 MEAN PLATELET VOLUME (BEAKER) (test uwwq=882) 8.7 fL 9.4-12.4 NUCLEATED RED BLOOD CELLS (BEAKER) (test 0 /100 WBC 0-0 eabu=848) [id number] 06:15:00 Test Item Value Reference Range Comments PHOSPHORUS (BEAKER) (test oasb=928) 3.0 mg/dL 2.3-4.7 [id number] 06:15:00 Test Item Value Reference Range Comments MAGNESIUM (BEAKER) (test iatw=467) 1.4 mg/dL 1.6-2.6 BASIC METABOLIC [id number] 06:15:00 Test Item Value Reference Range Comments SODIUM (BEAKER) (test 138 meq/L 136-145 mxrz=431) POTASSIUM (BEAKER) (test 4.2 meq/L 3.5-5.1 oxqs=807) CHLORIDE (BEAKER) (test 108 meq/L 98-107 rxyk=690) CO2 (BEAKER) (test 25 meq/L 22-29 otae=344) BLOOD UREA NITROGEN 8 mg/dL 7-21 (BEAKER) (test ockt=494) CREATININE (BEAKER) (test 0.65 mg/dL 0.57-1.25 qkea=207) GLUCOSE RANDOM (BEAKER) 116 mg/dL 70-105 (test xvck=295) CALCIUM (BEAKER) (test 8.3 mg/dL 8.4-10.2 kppf=468) EGFR (BEAKER) (test 129 mL/min/1.73 sq m ESTIMATED GFR IS NOT maal=4221) ACCURATE CREATININE CLEARANCE IN PREDICTING GLOMERULAR FILTRATION RATE. ESTIMATED GFR IS NOT APPLICABLE FOR DIALYSIS PATIENTS. CBC (HEMOGRAM ONLY)2018-06-10 06:02:00 Test Item Value Reference Range Comments WHITE BLOOD CELL COUNT (BEAKER) (test tkrt=171) 11.9 K/ L 3.5-10.5 RED BLOOD CELL COUNT (BEAKER) (test jnfz=573) 3.63 M/ L 4.63-6.08 HEMOGLOBIN (BEAKER) (test tnmn=751) 8.9 GM/DL 13.7-17.5 HEMATOCRIT (BEAKER) (test gjzk=637) 30.1 % 40.1-51.0 MEAN CORPUSCULAR VOLUME (BEAKER) (test lhjs=969) 82.9 fL 79.0-92.2 MEAN CORPUSCULAR HEMOGLOBIN (BEAKER) (test 24.5 pg 25.7-32.2 ucxq=474) MEAN CORPUSCULAR HEMOGLOBIN CONC (BEAKER) (test 29.6 GM/DL 32.3-36.5 soyy=912) RED CELL DISTRIBUTION WIDTH (BEAKER) (test 23.3 % 11.6-14.4 ieuh=573) PLATELET COUNT (BEAKER) (test xslt=638) 508 K/CU MM 150-450 MEAN PLATELET VOLUME (BEAKER) (test xqtm=165) 8.7 fL 9.4-12.4 NUCLEATED RED BLOOD CELLS (BEAKER) (test 0 /100 WBC 0-0 qntv=783) CT, [id number] 20:03:00FINAL REPORT EXAMINATION: CT SCAN OF THE ABDOMEN [...] the patient is status post bowel resection ( including suspected right colectomy) with suture lines in the left upper abdomen and a right lower quadrant ileostomy. As before, small punctate gas collections are noted near the suture lines in the left upper quadrant which may be intraluminal. However trace extraluminal gas-leak cannot be excluded. A fluid collection is again noted dorsal to the stomach which measures approximately 5 cm on today study comparedwith 11 cm on the previous examination. Additional [...] is moderately distended, nonspecific. The loops of smallbowel are relatively normal in caliber. Segments of [...] The liver demonstrates homogeneous decreased attenuation compatible withfatty infiltration. Subtle asymmetric enhancement involving the posterior segment of the right lobe of the liver may reflect fatty sparing. The gallbladder and bile ducts are decompressed. The pancreas, spleen, adrenal glands are unremarkable. No evidence of renal obstruction. A small nonobstructing 4mm right renal calculus is again noted. The abdominal aorta is normal in caliber. Contrast also opacifies the portal venous system, mesenteric vessels, renal arteries, iliac arteries and visualized femoral arteries. Evaluation of the veins is limited by the early timing of the contrast bolus. A Head catheter is noted in the bladder which appears to be properly positioned. However the bladder remainsmildly distended. The gas within the bladder is likely echogenic and related to the Head. Mild wallthickening of the bladder is nonspecific and may [...] the finding may reflect postoperative change. The wallthickening of the abdominal wall may reflect reactive and/or postoperative changes. A cellulitis would also be in the differential diagnosis in the appropriate clinical setting. No definite evidence ofan acute osseous abnormality IMPRESSION: Bilateral simple appearing pleural effusions (left largerthan right), similar to previous. Although a component of the adjacent basilar lung consolidation may reflect atelectasis, a multifocal pneumonia should also be considered given the patchy / nodular associated opacities. Status post recent bowel resection as detailed above. Multiple left abdominal fluid collections are again noted, overall improved. Trace nonloculated fluid is also noted in the lowerabdomen and pelvis. Please see above for additional details. Thick-walled bladder. Correlation withurinalysis recommended. Clinical correlation also recommended to confirm the Head catheter is functioning appropriately. Tiny bladder calculi. Wall thickening of the left colon. Incomplete distention versus a colitis. A component of the pelvic fat stranding may reflect a colitis. Mild wall thickeningof loops of small bowel in the right lower quadrant. Findings may reflect incomplete reactive changes related to the adjacent trace free fluid, incomplete distention or an enteritis. Postoperative changes and nonspecific infiltration of the abdominal wall subcutaneous tissues as detailed. Cellulitis cannot be excluded. Signed: Felix Sahni MDReport Verified Date/Time: 06/09/2018 20:03:19 Reading Location : [address] Reading Room RAD, CHEST, 1 VIEW, NON [id number] 11:55: 00Reason for exam:->Chest painShould this be performed at the bedside?-> YesFINAL REPORT AP view of the chest dated 06/09/2018 COMPARISON: June 01, 2018 CLINICAL INFORMATION: Chest pain Comment: Heart is normal in size. Pulmonary vasculature is unremarkable. Infiltrate is seen in the left lower lobe suggestive of pneumonia worse than prior study. Therest of the lungs are clear. There is trace left pleural effusion. Right PICC line remains in place.Signed: Dima Avalos MDReport Verified Date/Time: 06/09/2018 11 :55:29 Reading Location: [facility] Radiology Reading Room POCT-GLUCOSE [id number] 05:53:00 Test Item Value Reference Range Comments POC-GLUCOSE METER (BEAKER) 109 mg/dL 70-[address] [facility] [address] [facility] (test mhyb=4022) [facility] [address] [id number] 05:38:00 Test Item Value Reference Range Comments PHOSPHORUS (BEAKER) (test ihgv=095) 2.7 mg/dL 2.3-4.7 [id number] 05:38:00 Test Item Value Reference Range Comments MAGNESIUM (BEAKER) (test mvoz=328) 1.5 mg/dL 1.6-2.6 BASIC METABOLIC [id number] 05:38:00 Test Item Value Reference Range Comments SODIUM (BEAKER) (test 138 meq/L 136-145 tgfy=035) POTASSIUM (BEAKER) (test 4.3 meq/L 3.5-5.1 ajcu=027) CHLORIDE (BEAKER) (test 108 meq/L 98-107 gjqr=338) CO2 (BEAKER) (test 25 meq/L 22-29 aosb=016) BLOOD UREA NITROGEN 6 mg/dL 7-21 (BEAKER) (test xmgb=948) CREATININE (BEAKER) (test 0.65 mg/dL 0.57-1.25 owyn=125) GLUCOSE RANDOM (BEAKER) 114 mg/dL 70-105 (test qvbd=593) CALCIUM (BEAKER) (test 8.3 mg/dL 8.4-10.2 cljj=561) EGFR (BEAKER) (test 129 mL/min/1.73 sq m ESTIMATED GFR IS NOT auqg=0927) ACCURATE CREATININE CLEARANCE IN PREDICTING GLOMERULAR FILTRATION RATE. ESTIMATED GFR IS NOT APPLICABLE FOR DIALYSIS PATIENTS. CBC (HEMOGRAM ONLY)2018-06-09 05:37:00 Test Item Value Reference Range Comments WHITE BLOOD CELL COUNT (BEAKER) (test ksiq=095) 13.1 K/ L 3.5-10.5 RED BLOOD CELL COUNT (BEAKER) (test qsdr=992) 3.54 M/ L 4.63-6.08 HEMOGLOBIN (BEAKER) (test mjtj=645) 8.9 GM/DL 13.7-17.5 HEMATOCRIT (BEAKER) (test wvjp=089) 29.5 % 40.1-51.0 MEAN CORPUSCULAR VOLUME (BEAKER) (test tzix=687) 83.3 fL 79.0-92.2 MEAN CORPUSCULAR HEMOGLOBIN (BEAKER) (test 25.1 pg 25.7-32.2 iinx=477) MEAN CORPUSCULAR HEMOGLOBIN CONC (BEAKER) (test 30.2 GM/DL 32.3-36.5 nsbj=295) RED CELL DISTRIBUTION WIDTH (BEAKER) (test 23.2 % 11.6-14.4 roah=090) PLATELET COUNT (BEAKER) (test kdkv=745) 494 K/CU MM 150-450 MEAN PLATELET VOLUME (BEAKER) (test nebx=215) 8.8 fL 9.4-12.4 NUCLEATED RED BLOOD CELLS (BEAKER) (test 0 /100 WBC 0-0 lgtt=446) POCT-GLUCOSE [id number] 00:08:00 Test Item Value Reference Range Comments POC-GLUCOSE METER (BEAKER) 138 mg/dL 70-110 TESTED AT [address] (test fyll=3662) [facility] [address] POCT-GLUCOSE [id number] 18:18:00 Test Item Value Reference Range Comments POC-GLUCOSE METER (BEAKER) 146 mg/dL 70-110 TESTED AT [address] (test jord=1240) [facility] [address] POCT-GLUCOSE [id number] 12:30:00 Test Item Value Reference Range Comments POC-GLUCOSE METER (BEAKER) 172 mg/dL 70-110 TESTED AT [address] (test flgg=0060) [facility] [address] BASIC METABOLIC [id number] 05:50:00 Test Item Value Reference Range Comments SODIUM (BEAKER) (test 137 meq/L 136-145 fdld=176) POTASSIUM (BEAKER) (test 4.6 meq/L 3.5-5.1 cumo=462) CHLORIDE (BEAKER) (test 110 meq/L 98-107 kftv=706) CO2 (BEAKER) (test 21 meq/L 22-29 yess=807) BLOOD UREA NITROGEN 7 mg/dL 7-21 (BEAKER) (test zxtf=037) CREATININE (BEAKER) (test 0.70 mg/dL 0.57-1.25 hfmv=046) GLUCOSE RANDOM (BEAKER) 376 mg/dL 70-105 (test emfb=173) CALCIUM (BEAKER) (test 7.9 mg/dL 8.4-10.2 lzdg=830) EGFR (BEAKER) (test 118 mL/min/1.73 sq m ESTIMATED GFR IS NOT utma=9200) ACCURATE CREATININE CLEARANCE IN PREDICTING GLOMERULAR FILTRATION RATE. ESTIMATED GFR IS NOT APPLICABLE FOR DIALYSIS PATIENTS. [id number] 05:49:00 Test Item Value Reference Range Comments PHOSPHORUS (BEAKER) (test ywzc=455) 2.3 mg/dL 2.3-4.7 [id number] 05:49:00 Test Item Value Reference Range Comments MAGNESIUM (BEAKER) (test eogp=913) 1.2 mg/dL 1.6-2.6 CBC (HEMOGRAM ONLY)2018-06-08 04:57:00 Test Item Value Reference Range Comments WHITE BLOOD CELL COUNT (BEAKER) (test wmqu=372) 11.9 K/ L 3.5-10.5 RED BLOOD CELL COUNT (BEAKER) (test sjug=296) 3.51 M/ L 4.63-6.08 HEMOGLOBIN (BEAKER) (test cqks=382) 8.7 GM/DL 13.7-17.5 HEMATOCRIT (BEAKER) (test nrok=381) 29.7 % 40.1-51.0 MEAN CORPUSCULAR VOLUME (BEAKER) (test nhym=766) 84.6 fL 79.0-92.2 MEAN CORPUSCULAR HEMOGLOBIN (BEAKER) (test 24.8 pg 25.7-32.2 qgup=543) MEAN CORPUSCULAR HEMOGLOBIN CONC (BEAKER) (test 29.3 GM/DL 32.3-36.5 mggh=087) RED CELL DISTRIBUTION WIDTH (BEAKER) (test 23.7 % 11.6-14.4 ljjx=856) PLATELET COUNT (BEAKER) (test qulr=692) 503 K/CU MM 150-450 MEAN PLATELET VOLUME (BEAKER) (test tdqc=887) 8.8 fL 9.4-12.4 NUCLEATED RED BLOOD CELLS (BEAKER) (test 0 /100 WBC 0-0 zwwt=551) POCT-GLUCOSE [id number] 21:34:00 Test Item Value Reference Range Comments POC-GLUCOSE METER (BEAKER) 125 mg/dL 70-110 TESTED AT [address] (test wdyl=6248) [facility] [address] POCT-GLUCOSE [id number] 17:37:00 Test Item Value Reference Range Comments POC-GLUCOSE METER (BEAKER) 124 mg/dL 70-110 TESTED AT [address] (test ikga=4649) [place] [id number] 05:49:00 Test Item Value Reference Range Comments PHOSPHORUS (BEAKER) (test tawo=012) 2.2 mg/dL 2.3-4.7 [id number] 05:49:00 Test Item Value Reference Range Comments MAGNESIUM (BEAKER) (test esah=118) 1.4 mg/dL 1.6-2.6 BASIC METABOLIC [id number] 05:49:00 Test Item Value Reference Range Comments SODIUM (BEAKER) (test 136 meq/L 136-145 ethe=695) POTASSIUM (BEAKER) (test 4.4 meq/L 3.5-5.1 zwpf=617) CHLORIDE (BEAKER) (test 109 meq/L 98-107 vuhh=717) CO2 (BEAKER) (test 24 meq/L 22-29 atfs=198) BLOOD UREA NITROGEN 7 mg/dL 7-21 (BEAKER) (test xtep=747) CREATININE (BEAKER) (test 0.58 mg/dL 0.57-1.25 xxuc=658) GLUCOSE RANDOM (BEAKER) 92 mg/dL 70-105 (test olgw=387) CALCIUM (BEAKER) (test 8.0 mg/dL 8.4-10.2 uari=427) EGFR (BEAKER) (test 147 mL/min/1.73 sq m ESTIMATED GFR IS NOT shrc=0104) ACCURATE CREATININE CLEARANCE IN PREDICTING GLOMERULAR FILTRATION RATE. ESTIMATED GFR IS NOT APPLICABLE FOR DIALYSIS PATIENTS. CBC (HEMOGRAM ONLY)2018-06-07 05:21:00 Test Item Value Reference Range Comments WHITE BLOOD CELL COUNT (BEAKER) (test slil=351) 13.5 K/ L 3.5-10.5 RED BLOOD CELL COUNT (BEAKER) (test pdrh=377) 3.57 M/ L 4.63-6.08 HEMOGLOBIN (BEAKER) (test uobp=501) 8.9 GM/DL 13.7-17.5 HEMATOCRIT (BEAKER) (test ielb=495) 29.8 % 40.1-51.0 MEAN CORPUSCULAR VOLUME (BEAKER) (test gpow=133) 83.5 fL 79.0-92.2 MEAN CORPUSCULAR HEMOGLOBIN (BEAKER) (test 24.9 pg 25.7-32.2 lxac=278) MEAN CORPUSCULAR HEMOGLOBIN CONC (BEAKER) (test 29.9 GM/DL 32.3-36.5 elax=188) RED CELL DISTRIBUTION WIDTH (BEAKER) (test 23.9 % 11.6-14.4 gmjb=867) PLATELET COUNT (BEAKER) (test tecj=670) 465 K/CU MM 150-450 MEAN PLATELET VOLUME (BEAKER) (test skmp=715) 8.9 fL 9.4-12.4 NUCLEATED RED BLOOD CELLS (BEAKER) (test 0 /100 WBC 0-0 vgau=035) POCT-GLUCOSE [id number] 23:56:00 Test Item Value Reference Range Comments POC-GLUCOSE METER (BEAKER) 167 mg/dL 70-110 TESTED AT [address] (test yfdo=6559) [place] [id number] POCT-GLUCOSE [id number] 17:58:00 Test Item Value Reference Range Comments POC-GLUCOSE METER (BEAKER) 116 mg/dL 70-110 TESTED AT [address] (test tzwt=3992) [place] [id number] POCT-GLUCOSE [id number] 12:15:00 Test Item Value Reference Range Comments POC-GLUCOSE METER (BEAKER) 134 mg/dL 70-110 TESTED AT [address] (test skzy=6420) [place] [address] HEPATIC FUNCTION [id number] 11:39:00 Test Item Value Reference Range Comments TOTAL PROTEIN (BEAKER) (test bnpp=014) 5.2 gm/dL 6.0-8.3 ALBUMIN (BEAKER) (test notq=9276) 2.2 g/dL 3.5-5.0 BILIRUBIN TOTAL (BEAKER) (test enrs=083) 0.2 mg/dL 0.2-1.2 BILIRUBIN DIRECT (BEAKER) (test hhyg=653) 0.2 mg/dL 0.1-0.5 ALKALINE PHOSPHATASE (BEAKER) (test vjah=339) 240 U/L 40-150 AST (SGOT) (BEAKER) (test nqcx=550) 32 U/L 5-34 ALT (SGPT) (BEAKER) (test gryp=362) 39 U/L 6-55 POCT-GLUCOSE [id number] 05:51:00 Test Item Value Reference Range Comments POC-GLUCOSE METER (BEAKER) 117 mg/dL 70-[address] [facility] [address] [facility] (test hhtj=7834) [facility] [address] [id number] 05:43:00 Test Item Value Reference Range Comments PHOSPHORUS (BEAKER) (test hsil=570) 2.2 mg/dL 2.3-4.7 [id number] 05:43:00 Test Item Value Reference Range Comments MAGNESIUM (BEAKER) (test nugs=407) 1.4 mg/dL 1.6-2.6 BASIC METABOLIC [id number] 05:43:00 Test Item Value Reference Range Comments SODIUM (BEAKER) (test 139 meq/L 136-145 lcnv=943) POTASSIUM (BEAKER) (test 4.3 meq/L 3.5-5.1 ntpi=165) CHLORIDE (BEAKER) (test 111 meq/L 98-107 ebur=389) CO2 (BEAKER) (test 23 meq/L 22-29 srdf=047) BLOOD UREA NITROGEN 8 mg/dL 7-21 (BEAKER) (test mzed=923) CREATININE (BEAKER) (test 0.60 mg/dL 0.57-1.25 xlba=576) GLUCOSE RANDOM (BEAKER) 100 mg/dL 70-105 (test jtoi=364) CALCIUM (BEAKER) (test 8.0 mg/dL 8.4-10.2 bgpv=588) EGFR (BEAKER) (test 141 mL/min/1.73 sq m ESTIMATED GFR IS NOT oosy=3733) ACCURATE CREATININE CLEARANCE IN PREDICTING GLOMERULAR FILTRATION RATE. ESTIMATED GFR IS NOT APPLICABLE FOR DIALYSIS PATIENTS. CBC (HEMOGRAM ONLY)2018-06-06 05:35:00 Test Item Value Reference Range Comments WHITE BLOOD CELL COUNT (BEAKER) (test ydop=303) 13.0 K/ L 3.5-10.5 RED BLOOD CELL COUNT (BEAKER) (test wsbq=832) 3.62 M/ L 4.63-6.08 HEMOGLOBIN (BEAKER) (test nqbb=829) 9.0 GM/DL 13.7-17.5 HEMATOCRIT (BEAKER) (test lbhq=624) 30.1 % 40.1-51.0 MEAN CORPUSCULAR VOLUME (BEAKER) (test pabe=691) 83.1 fL 79.0-92.2 MEAN CORPUSCULAR HEMOGLOBIN (BEAKER) (test 24.9 pg 25.7-32.2 txjy=054) MEAN CORPUSCULAR HEMOGLOBIN CONC (BEAKER) (test 29.9 GM/DL 32.3-36.5 jhya=653) RED CELL DISTRIBUTION WIDTH (BEAKER) (test 23.9 % 11.6-14.4 iqyq=869) PLATELET COUNT (BEAKER) (test dxjj=485) 432 K/CU MM 150-450 MEAN PLATELET VOLUME (BEAKER) (test uwdm=978) 8.8 fL 9.4-12.4 NUCLEATED RED BLOOD CELLS (BEAKER) (test 0 /100 WBC 0-0 uytv=040) POCT-GLUCOSE [id number] 00:07:00 Test Item Value Reference Range Comments POC-GLUCOSE METER (BEAKER) 198 mg/dL 70-110 TESTED AT [address] (test mwtq=6229) [facility] [address] POCT-GLUCOSE [id number] 17:49:00 Test Item Value Reference Range Comments POC-GLUCOSE METER (BEAKER) 161 mg/dL 70-110 TESTED AT [address] (test clko=4860) [facility] [address] BODY FLUID CULTURE + GRAM [id number] 13:40:00 Test Item Value Reference Range Comments CULTURE (BEAKER) (test tibd=1004) No growth GRAM STAIN RESULT (BEAKER) (test <1+ WBCs nagn=9297) GRAM STAIN RESULT (BEAKER) (test No organisms seen haqm=19876) FL, ESOPH, SWALLOW FUNCTION, WITH CINE OR [id number] 13:24:00Reason for exam:->dysphagia evalFINAL REPORT Modified barium swallow with speech pathology History: dysphagia Technique: Modified barium swallow was performed in conjunction with speech pathology. Examination utilized various textures of barium. Fluoroscopic observation was performed during swallowing. Total fluoroscopy time: 0.97 minutes Total number of films: 14 IMPRESSION: There is no evidence of laryngeal penetration or aspiration. Please refer to the speech pathology report for further details. Signed:Shaun Peralta MDReport Verified Date/Time: 06/05/2018 13:24:30 Reading Location: [facility] [id number] Ortho Consult Reading Room POCT-GLUCOSE [id number] 06:19:00 Test Item Value Reference Range Comments POC-GLUCOSE METER (BEAKER) 123 mg/dL 70-[address] [facility] [address] [place] [address] (test dekn=8320) [facility] [address] [id number] 04:44:00 Test Item Value Reference Range Comments MAGNESIUM (BEAKER) (test iqlo=348) 1.0 mg/dL 1.6-2.6 [id number] 04:43:00 Test Item Value Reference Range Comments PHOSPHORUS (BEAKER) (test zevz=449) 1.4 mg/dL 2.3-4.7 BASIC METABOLIC [id number] 04:34:00 Test Item Value Reference Range Comments SODIUM (BEAKER) (test 136 meq/L 136-145 lxov=122) POTASSIUM (BEAKER) (test 4.0 meq/L 3.5-5.1 tonh=272) CHLORIDE (BEAKER) (test 110 meq/L 98-107 buet=658) CO2 (BEAKER) (test 20 meq/L 22-29 dung=119) BLOOD UREA NITROGEN 7 mg/dL 7-21 (BEAKER) (test hgde=304) CREATININE (BEAKER) (test 0.47 mg/dL 0.57-1.25 pxxr=684) GLUCOSE RANDOM (BEAKER) 78 mg/dL 70-105 (test pois=305) CALCIUM (BEAKER) (test 7.5 mg/dL 8.4-10.2 yhiy=021) EGFR (BEAKER) (test 188 mL/min/1.73 sq m ESTIMATED GFR IS NOT clay=9540) ACCURATE CREATININE CLEARANCE IN PREDICTING GLOMERULAR FILTRATION RATE. ESTIMATED GFR IS NOT APPLICABLE FOR DIALYSIS PATIENTS. CBC (HEMOGRAM ONLY)2018-06-05 04:21:00 Test Item Value Reference Range Comments WHITE BLOOD CELL COUNT (BEAKER) (test ldmd=992) 12.3 K/ L 3.5-10.5 RED BLOOD CELL COUNT (BEAKER) (test hknr=669) 3.08 M/ L 4.63-6.08 HEMOGLOBIN (BEAKER) (test agvy=746) 7.7 GM/DL 13.7-17.5 HEMATOCRIT (BEAKER) (test yzid=288) 25.9 % 40.1-51.0 MEAN CORPUSCULAR VOLUME (BEAKER) (test qxco=521) 84.1 fL 79.0-92.2 MEAN CORPUSCULAR HEMOGLOBIN (BEAKER) (test 25.0 pg 25.7-32.2 dwrk=395) MEAN CORPUSCULAR HEMOGLOBIN CONC (BEAKER) (test 29.7 GM/DL 32.3-36.5 cnpv=484) RED CELL DISTRIBUTION WIDTH (BEAKER) (test 24.3 % 11.6-14.4 flbz=402) PLATELET COUNT (BEAKER) (test jxht=269) 420 K/CU MM 150-450 MEAN PLATELET VOLUME (BEAKER) (test tlsn=889) 8.9 fL 9.4-12.4 NUCLEATED RED BLOOD CELLS (BEAKER) (test 0 /100 WBC 0-0 ikor=310) POCT-GLUCOSE [id number] 00:07:00 Test Item Value Reference Range Comments POC-GLUCOSE METER (BEAKER) 120 mg/dL 70-[address] [facility] [address] [place] [address] (test xepf=2161) [facility] [address] POCT-GLUCOSE [id number] 19:29:00 Test Item Value Reference Range Comments POC-GLUCOSE METER (BEAKER) 111 mg/dL 70-110 TESTED AT [address] (test rztf=0656) [facility] [address] POCT-GLUCOSE [id number] 12:24:00 Test Item Value Reference Range Comments POC-GLUCOSE METER (BEAKER) 157 mg/dL 70-110 TESTED AT [place] [id number] [facility] (test ujll=2575) [facility] [address] POCT-GLUCOSE [id number] 06:09:00 Test Item Value Reference Range Comments POC-GLUCOSE METER (BEAKER) 116 mg/dL 70-110 TESTED AT [address] (test sduy=8705) [facility] [address] [id number] 04:45:00 Test Item Value Reference Range Comments PREALBUMIN (BEAKER) (test gdav=212) 12 mg/dL 14-45 [id number] 04:44:00 Test Item Value Reference Range Comments TRIGLYCERIDES (BEAKER) (test jflj=518) 142 mg/dL TRIGLYCERIDE REFERENCE RANGELow Risk <150Borderline Risk 150-199High Risk 200-499Very High Risk>=[id number] 04:44:00 Test Item Value Reference Range Comments MAGNESIUM (BEAKER) (test aesx=042) 1.6 mg/dL 1.6-2.6 [id number] 04:44:00 Test Item Value Reference Range Comments PHOSPHORUS (BEAKER) (test qkii=096) 2.2 mg/dL 2.3-4.7 BASIC METABOLIC [id number] 04:44:00 Test Item Value Reference Range Comments SODIUM (BEAKER) (test 135 meq/L 136-145 gvlz=681) POTASSIUM (BEAKER) (test 4.2 meq/L 3.5-5.1 ybce=315) CHLORIDE (BEAKER) (test 108 meq/L 98-107 zudm=787) CO2 (BEAKER) (test 23 meq/L 22-29 iokz=118) BLOOD UREA NITROGEN 13 mg/dL 7-21 (BEAKER) (test edsk=802) CREATININE (BEAKER) (test 0.62 mg/dL 0.57-1.25 vbxa=809) GLUCOSE RANDOM (BEAKER) 95 mg/dL 70-105 (test ykeh=275) CALCIUM (BEAKER) (test 8.2 mg/dL 8.4-10.2 isto=404) EGFR (BEAKER) (test 136 mL/min/1.73 sq m ESTIMATED GFR IS NOT izwl=3615) ACCURATE CREATININE CLEARANCE IN PREDICTING GLOMERULAR FILTRATION RATE. ESTIMATED GFR IS NOT APPLICABLE FOR DIALYSIS PATIENTS. HEPATIC FUNCTION [id number] 04:44:00 Test Item Value Reference Range Comments TOTAL PROTEIN (BEAKER) (test lcwr=246) 5.5 gm/dL 6.0-8.3 ALBUMIN (BEAKER) (test txep=9921) 2.3 g/dL 3.5-5.0 BILIRUBIN TOTAL (BEAKER) (test cwzv=153) 0.4 mg/dL 0.2-1.2 BILIRUBIN DIRECT (BEAKER) (test gopt=931) 0.3 mg/dL 0.1-0.5 ALKALINE PHOSPHATASE (BEAKER) (test haca=665) 277 U/L 40-150 AST (SGOT) (BEAKER) (test megl=280) 39 U/L 5-34 ALT (SGPT) (BEAKER) (test hnwh=495) 55 U/L 6-55 C-REACTIVE [id number] 04:44:00 Test Item Value Reference Range Comments C-REACTIVE PROTEIN (BEAKER) (test tzuc=103) 4.09 mg/dL 0.00-0.50 CBC (HEMOGRAM ONLY)2018-06-04 04:43:00 Test Item Value Reference Range Comments WHITE BLOOD CELL COUNT (BEAKER) (test btpu=661) 15.6 K/ L 3.5-10.5 RED BLOOD CELL COUNT (BEAKER) (test eivd=402) 3.46 M/ L 4.63-6.08 HEMOGLOBIN (BEAKER) (test erin=452) 8.7 GM/DL 13.7-17.5 HEMATOCRIT (BEAKER) (test ofjw=097) 28.2 % 40.1-51.0 MEAN CORPUSCULAR VOLUME (BEAKER) (test oizg=324) 81.5 fL 79.0-92.2 MEAN CORPUSCULAR HEMOGLOBIN (BEAKER) (test 25.1 pg 25.7-32.2 honw=124) MEAN CORPUSCULAR HEMOGLOBIN CONC (BEAKER) (test 30.9 GM/DL 32.3-36.5 ellb=819) RED CELL DISTRIBUTION WIDTH (BEAKER) (test 24.6 % 11.6-14.4 azej=150) PLATELET COUNT (BEAKER) (test ehiz=154) 430 K/CU MM 150-450 MEAN PLATELET VOLUME (BEAKER) (test phsb=843) 9.3 fL 9.4-12.4 NUCLEATED RED BLOOD CELLS (BEAKER) (test 0 /100 WBC 0-0 lcqv=679) POCT-GLUCOSE [id number] 00:33:00 Test Item Value Reference Range Comments POC-GLUCOSE METER (BEAKER) 136 mg/dL 70-110 TESTED AT [address] (test zhrx=0523) [place] [id number] POCT-GLUCOSE [id number] 18:18:00 Test Item Value Reference Range Comments POC-GLUCOSE METER (BEAKER) 131 mg/dL 70-110 TESTED AT [address] (test bsqn=2070) [place] [id number] HEPATIC FUNCTION [id number] 12:03:00 Test Item Value Reference Range Comments TOTAL PROTEIN (BEAKER) (test ljoa=543) 5.2 gm/dL 6.0-8.3 ALBUMIN (BEAKER) (test zmvk=9093) 2.2 g/dL 3.5-5.0 BILIRUBIN TOTAL (BEAKER) (test emdk=647) 0.4 mg/dL 0.2-1.2 BILIRUBIN DIRECT (BEAKER) (test hcls=166) 0.3 mg/dL 0.1-0.5 ALKALINE PHOSPHATASE (BEAKER) (test ujeb=144) 280 U/L 40-150 AST (SGOT) (BEAKER) (test njhf=465) 43 U/L 5-34 ALT (SGPT) (BEAKER) (test prsj=970) 57 U/L 6-55 POCT-GLUCOSE [id number] 11:58:00 Test Item Value Reference Range Comments POC-GLUCOSE METER (BEAKER) 115 mg/dL 70-110 TESTED AT [address] (test orpk=5670) [facility] [address] POCT-GLUCOSE [id number] 06:04:00 Test Item Value Reference Range Comments POC-GLUCOSE METER (BEAKER) 99 mg/dL 70-110 TESTED AT [address] (test fnro=4546) [place] [id number] 04:22:00 Test Item Value Reference Range Comments PHOSPHORUS (BEAKER) (test egkt=660) 2.5 mg/dL 2.3-4.7 [id number] 04:22:00 Test Item Value Reference Range Comments MAGNESIUM (BEAKER) (test kvko=965) 1.5 mg/dL 1.6-2.6 BASIC METABOLIC [id number] 04:22:00 Test Item Value Reference Range Comments SODIUM (BEAKER) (test 138 meq/L 136-145 ypup=790) POTASSIUM (BEAKER) (test 4.0 meq/L 3.5-5.1 voze=880) CHLORIDE (BEAKER) (test 110 meq/L 98-107 lzfu=117) CO2 (BEAKER) (test 23 meq/L 22-29 nikr=307) BLOOD UREA NITROGEN 18 mg/dL 7-21 (BEAKER) (test sqhu=033) CREATININE (BEAKER) (test 0.63 mg/dL 0.57-1.25 zhbc=452) GLUCOSE RANDOM (BEAKER) 92 mg/dL 70-105 (test nslb=711) CALCIUM (BEAKER) (test 8.2 mg/dL 8.4-10.2 wvga=118) EGFR (BEAKER) (test 134 mL/min/1.73 sq m ESTIMATED GFR IS NOT wtbt=1195) ACCURATE CREATININE CLEARANCE IN PREDICTING GLOMERULAR FILTRATION RATE. ESTIMATED GFR IS NOT APPLICABLE FOR DIALYSIS PATIENTS. CBC (HEMOGRAM ONLY)2018-06-03 04:07:00 Test Item Value Reference Range Comments WHITE BLOOD CELL COUNT (BEAKER) (test rqpp=958) 13.3 K/ L 3.5-10.5 RED BLOOD CELL COUNT (BEAKER) (test ryfg=185) 3.48 M/ L 4.63-6.08 HEMOGLOBIN (BEAKER) (test pkwn=937) 8.6 GM/DL 13.7-17.5 HEMATOCRIT (BEAKER) (test elsc=368) 28.7 % 40.1-51.0 MEAN CORPUSCULAR VOLUME (BEAKER) (test qupe=281) 82.5 fL 79.0-92.2 MEAN CORPUSCULAR HEMOGLOBIN (BEAKER) (test 24.7 pg 25.7-32.2 asfi=457) MEAN CORPUSCULAR HEMOGLOBIN CONC (BEAKER) (test 30.0 GM/DL 32.3-36.5 tgrr=772) RED CELL DISTRIBUTION WIDTH (BEAKER) (test 25.0 % 11.6-14.4 mbhz=120) PLATELET COUNT (BEAKER) (test prym=812) 364 K/CU MM 150-450 MEAN PLATELET VOLUME (BEAKER) (test wyko=098) 9.4 fL 9.4-12.4 NUCLEATED RED BLOOD CELLS (BEAKER) (test 0 /100 WBC 0-0 ojlg=607) POCT-GLUCOSE [id number] 00:36:00 Test Item Value Reference Range Comments POC-GLUCOSE METER (BEAKER) 123 mg/dL 70-110 TESTED AT [address] (test swuy=4224) [place] [address] POCT-GLUCOSE [id number] 19:31:00 Test Item Value Reference Range Comments POC-GLUCOSE METER (BEAKER) 157 mg/dL 70-110 TESTED AT [address] (test tvbv=5545) [place] [address] CT, DRAINAGE W/ CATH [id number] 18:45:00Reason for exam:->Intra- abdominal fluid collectionFINAL REPORT CT-guided fine- needle aspiration. CLINICAL HISTORY: Intra-abdominal fluid collection. COMPARISON [...] with the perisplenic collection performed. 10 cc ofsimple appearing serous fluid was aspirated. Therefore, no catheter was left in place as there are no signs of infection. The fluid was sent to the lab for analysis. COMPLICATIONS: None. ESTIMATED BLOOD LOSS: Minimal. Patient Disposition: The patient was in the same state post procedure as preprocedure. IMPRESSION: Successful CT-guided fine- needle aspiration of a fluid collection located adjacent tothe inferior aspect of the spleen in contiguity with the perisplenic collection. No catheter was left in place at the fluid appears serous. The patient is now afebrile and his white count has decreased. Signed: Raoul Portillo MDReport Verified Date/Time: 06/02/2018 18:45:49 Reading Location: [facility] C013Y CT Body Reading Room ANAEROBIC [id number] 18:17:00 Test Item Value Reference Range Comments CULTURE (BEAKER) (test qrxo=5144) No anaerobes isolated POCT-GLUCOSE [id number] 12:58:00 Test Item Value Reference Range Comments POC-GLUCOSE METER (BEAKER) 131 mg/dL 70-110 TESTED AT [address] (test jmzo=8782) [place] [address] POCT-GLUCOSE [id number] 05:57:00 Test Item Value Reference Range Comments POC-GLUCOSE METER (BEAKER) 110 mg/dL 70-110 TESTED AT [address] (test qbku=4539) [place] [address] [id number] 04:05:00 Test Item Value Reference Range Comments PHOSPHORUS (BEAKER) (test qayp=835) 2.7 mg/dL 2.3-4.7 [id number] 04:05:00 Test Item Value Reference Range Comments MAGNESIUM (BEAKER) (test zbmq=640) 1.5 mg/dL 1.6-2.6 BASIC METABOLIC [id number] 04:05:00 Test Item Value Reference Range Comments SODIUM (BEAKER) (test 137 meq/L 136-145 cgco=568) POTASSIUM (BEAKER) (test 3.9 meq/L 3.5-5.1 jacx=385) CHLORIDE (BEAKER) (test 111 meq/L 98-107 sutb=670) CO2 (BEAKER) (test 20 meq/L 22-29 rsbp=948) BLOOD UREA NITROGEN 24 mg/dL 7-21 (BEAKER) (test vppc=974) CREATININE (BEAKER) (test 0.62 mg/dL 0.57-1.25 pxue=339) GLUCOSE RANDOM (BEAKER) 114 mg/dL 70-105 (test cshu=755) CALCIUM (BEAKER) (test 8.3 mg/dL 8.4-10.2 yyne=825) EGFR (BEAKER) (test 136 mL/min/1.73 sq m ESTIMATED GFR IS NOT mapl=0896) ACCURATE CREATININE CLEARANCE IN PREDICTING GLOMERULAR FILTRATION RATE. ESTIMATED GFR IS NOT APPLICABLE FOR DIALYSIS PATIENTS. [id number] 03:59:00 Test Item Value Reference Range Comments PROTIME (BEAKER) (test ocof=232) 14.7 seconds 11.7-14.7 INR (BEAKER) (test xule=842) 1.1 <=5.9 PARTIAL THROMBOPLASTIN TIME (BEAKER) (test 33.8 seconds 22.5-36.0 kiaq=524) RECOMMENDED COUMADIN/WARFARIN INR THERAPY RANGESSTANDARD DOSE: 2.0 - 3.0 Includes: PROPHYLAXIS forvenous thrombosis, systemic embolization; TREATMENT for venous thrombosis and/or pulmonary embolus.HIGH RISK: Target INR is 2.5-3.5 for patients with mechanical heart valves.PROTHROMBIN [id number] 03:58: 00 Test Item Value Reference Range Comments PROTIME (BEAKER) (test cpjk=623) 14.7 seconds 11.7-14.7 INR (BEAKER) (test zduq=899) 1.1 <=5.9 RECOMMENDED COUMADIN/WARFARIN INR THERAPY RANGESSTANDARD DOSE: 2.0 - 3.0 Includes: PROPHYLAXIS forvenous thrombosis, systemic embolization; TREATMENT for venous thrombosis and/or pulmonary embolus.HIGH RISK: Target INR is 2.5-3.5 for patients with mechanical heart valves.CBC (HEMOGRAM ONLY)2018-06-02 03:47:00 Test Item Value Reference Range Comments WHITE BLOOD CELL COUNT (BEAKER) (test ykcb=674) 15.2 K/ L 3.5-10.5 RED BLOOD CELL COUNT (BEAKER) (test fuau=239) 3.42 M/ L 4.63-6.08 HEMOGLOBIN (BEAKER) (test kjde=017) 8.5 GM/DL 13.7-17.5 HEMATOCRIT (BEAKER) (test ktws=917) 27.7 % 40.1-51.0 MEAN CORPUSCULAR VOLUME (BEAKER) (test dlqc=145) 81.0 fL 79.0-92.2 MEAN CORPUSCULAR HEMOGLOBIN (BEAKER) (test 24.9 pg 25.7-32.2 bagv=552) MEAN CORPUSCULAR HEMOGLOBIN CONC (BEAKER) (test 30.7 GM/DL 32.3-36.5 jrie=756) RED CELL DISTRIBUTION WIDTH (BEAKER) (test 25.3 % 11.6-14.4 ttmr=501) PLATELET COUNT (BEAKER) (test dwxc=272) 346 K/CU MM 150-450 MEAN PLATELET VOLUME (BEAKER) (test ohcb=744) 9.2 fL 9.4-12.4 NUCLEATED RED BLOOD CELLS (BEAKER) (test 0 /100 WBC 0-0 ghke=130) POCT-GLUCOSE [id number] 00:17:00 Test Item Value Reference Range Comments POC-GLUCOSE METER (BEAKER) 158 mg/dL 70-110 TESTED AT [address] (test zdba=0071) [place] [id number] POCT-GLUCOSE [id number] 19:09:00 Test Item Value Reference Range Comments POC-GLUCOSE METER (BEAKER) 134 mg/dL 70-110 TESTED AT [address] (test pwey=6435) [facility] [address] BLOOD [id number] 19:01:00 Test Item Value Reference Range Comments CULTURE (BEAKER) (test koqi=2760) No growth in 5 days BLOOD [id number] 19:01:00 Test Item Value Reference Range Comments CULTURE (BEAKER) (test yons=4332) No growth in 5 days RAD, CHEST, 1 VIEW, NON [id number] 17:22:00Reason for exam:-> leukocytosisShould this be performed at the bedside?->YesFINAL REPORT CHEST ONE VIEW HISTORY: Leukocytosis COMPARISON: 2018 FINDINGS: Single portable AP examination of the chest was performed. Small left pleural effusion, similar in appearance. There is airspace consolidation at the left lung base, unchanged or decreased, suggestive of atelectasis or pneumonia. Mild vascular congestion is present, similar in appearance. Cardiac shadow normal in size. No pneumothorax. Right PICC line tip is in the SVC region. Signed: Dave Pinedo Verified Date/Time: 2018 17:22:47 Reading Location: [facility] C013T Transitional Reading Room CT, [id number] 14:51:00FINAL REPORT INDICATION: Abdominal pain and fever. COMPARISON: May 27, 2018TECHNIQUE: CT of the Abdomen and Pelvis WITH intravenous contrast. Enteric contrast was not used. The exam was performed according to our department dose-optimization protocol, which includes automatedexposure control, adjustments of mA and kV according to patient size. Iterative reconstructions are also sometimes employed. FINDINGS: Patient is status post laparotomy and bowel resection in the left upper quadrant. There is a rim-enhancing collection left subdiaphragmatic and extending down the left paracolic gutter. It is newly formed since May 27. Mesenteric edema and minimal free peritoneal fluid noted. No free intraperitoneal air. There is a new drain crosses from the right mid abdomen coursing anteriorly down into the left lower quadrant and out the abdominal wall. Liver, gallbladder, pancreas, spleen, adrenal glands, kidneys, are unremarkable. There is a large caliber change ureteral balloon tipped catheter in the bladder. Diffuse body wall edema and bilateral pleural effusions, moderate on the left and small the right. Left effusion associated with near complete collapse of the left basilar segment. Right effusion with relaxation atelectasis posteriorly. Osseous structures unremarkable. IMPRESSION: Interval relaparotomy and bowel resection with primary anastomosis in the left upper quadrant. Newly formed rim-enhancing collection left subdiaphragmatic extending into the left paracolic gutter. Rim enhancement suggest postoperative infection. Signed: Vamsi Crowe MDReport Verified Date/Time: 06/01/2018 14: 51:20 Reading Location: [facility] C013X Ortho Consult Reading Room POCT-GLUCOSE [id number] 12:18:00 Test Item Value Reference Range Comments POC-GLUCOSE METER (BEAKER) 141 mg/dL 70-110 TESTED AT [address] (test zxmh=8170) [facility] [address] CBC (HEMOGRAM ONLY)2018-06-01 06:56:00 Test Item Value Reference Range Comments WHITE BLOOD CELL COUNT (BEAKER) (test vuqj=257) 19.8 K/ L 3.5-10.5 RED BLOOD CELL COUNT (BEAKER) (test gimc=586) 3.92 M/ L 4.63-6.08 HEMOGLOBIN (BEAKER) (test sbqs=828) 9.6 GM/DL 13.7-17.5 HEMATOCRIT (BEAKER) (test shkf=018) 31.2 % 40.1-51.0 MEAN CORPUSCULAR VOLUME (BEAKER) (test hnmh=080) 79.6 fL 79.0-92.2 MEAN CORPUSCULAR HEMOGLOBIN (BEAKER) (test 24.5 pg 25.7-32.2 guhj=935) MEAN CORPUSCULAR HEMOGLOBIN CONC (BEAKER) (test 30.8 GM/DL 32.3-36.5 ovmx=751) RED CELL DISTRIBUTION WIDTH (BEAKER) (test 25.7 % 11.6-14.4 kcgn=720) PLATELET COUNT (BEAKER) (test jbyo=719) 418 K/CU MM 150-450 MEAN PLATELET VOLUME (BEAKER) (test ngjd=900) 9.4 fL 9.4-12.4 NUCLEATED RED BLOOD CELLS (BEAKER) (test 0 /100 WBC 0-0 vubq=386) POCT-GLUCOSE [id number] 06:40:00 Test Item Value Reference Range Comments POC-GLUCOSE METER (BEAKER) 97 mg/dL 70-110 TESTED AT [address] (test gamc=5739) [place] [id number] 05:55:00 Test Item Value Reference Range Comments PHOSPHORUS (BEAKER) (test ipxx=309) 3.2 mg/dL 2.3-4.7 [id number] 05:55:00 Test Item Value Reference Range Comments MAGNESIUM (BEAKER) (test nmkx=863) 1.5 mg/dL 1.6-2.6 BASIC METABOLIC [id number] 05:55:00 Test Item Value Reference Range Comments SODIUM (BEAKER) (test 138 meq/L 136-145 ctpe=925) POTASSIUM (BEAKER) (test 4.1 meq/L 3.5-5.1 gort=562) CHLORIDE (BEAKER) (test 110 meq/L 98-107 aukz=925) CO2 (BEAKER) (test 23 meq/L 22-29 cxgu=500) BLOOD UREA NITROGEN 29 mg/dL 7-21 (BEAKER) (test dqtq=338) CREATININE (BEAKER) (test 0.65 mg/dL 0.57-1.25 smmu=596) GLUCOSE RANDOM (BEAKER) 95 mg/dL 70-105 (test qauw=792) CALCIUM (BEAKER) (test 8.9 mg/dL 8.4-10.2 cysc=372) EGFR (BEAKER) (test 129 mL/min/1.73 sq m ESTIMATED GFR IS NOT jsya=1859) ACCURATE CREATININE CLEARANCE IN PREDICTING GLOMERULAR FILTRATION RATE. ESTIMATED GFR IS NOT APPLICABLE FOR DIALYSIS PATIENTS. POCT-GLUCOSE [id number] 00:14:00 Test Item Value Reference Range Comments POC-GLUCOSE METER (BEAKER) 117 mg/dL 70-110 TESTED AT [address] (test ywkr=7945) [facility] [address] SURGICALLY OBTAINED CULTURE + GRAM [id number] 14:38:00 Test Item Value Reference Range Comments CULTURE (BEAKER) RHONDA DUBLINIENSIS <1+ Rhonda (test advg=8097) dubliniensis 5-Flurocytosine (test Susceptible 0-4 , nlts=793) Intermediate <0 or >4 , Resistant >16 Amphotericin B (test Susceptible >0-0 , No cxay=734) Interpretations Established <=0 or >0 Caspofungin acetate Susceptible 0-2 , Non (test ylej=029) Fluconazole (test Susceptible 0-8 , Dose qnod=947) Dependent Susceptible <0 or >8 , Resi Itraconazole (test Susceptible 0-0.125 , gxte=865) Dose Dependent Susceptible <0 or >.125 Micafungin (test Susceptible <=2 , qjil=782) Non-susceptible >2 Posaconazole (test Susceptible >0-0 , No qzdt=354) Interpretations Established <=0 or >0 Voriconazole (test Susceptible 0-1 , Dose dbhn=401) Dependent Susceptible <0 or >1 , Resi GRAM STAIN RESULT <1+ White blood cells (BEAKER) (test seen lehu=8212) GRAM STAIN RESULT No organisms seen (BEAKER) (test jeiv=994030) POCT-GLUCOSE [id number] 06:21:00 Test Item Value Reference Range Comments POC-GLUCOSE METER (BEAKER) 120 mg/dL 70-[address] [facility] [address] [facility] (test uvvt=7473) [facility] [address] [id number] 05:42:00 Test Item Value Reference Range Comments MAGNESIUM (BEAKER) (test 1.9 mg/dL 1.6-2.6 Specimen slightly hemolyzed xnfx=842) [id number] 05:42:00 Test Item Value Reference Range Comments PHOSPHORUS (BEAKER) (test 3.0 mg/dL 2.3-4.7 Specimen slightly hemolyzed wdrr=209) BASIC METABOLIC [id number] 05:42:00 Test Item Value Reference Range Comments SODIUM (BEAKER) (test 137 meq/L 136-145 ftnz=564) POTASSIUM (BEAKER) (test 4.3 meq/L 3.5-5.1 Specimen slightly jlwb=252) hemolyzed CHLORIDE (BEAKER) (test 107 meq/L 98-107 iupn=793) CO2 (BEAKER) (test 26 meq/L 22-29 xeql=361) BLOOD UREA NITROGEN 33 mg/dL 7-21 (BEAKER) (test tizf=380) CREATININE (BEAKER) (test 0.65 mg/dL 0.57-1.25 Specimen slightly tylp=230) hemolyzed GLUCOSE RANDOM (BEAKER) 99 mg/dL 70-105 (test yuhy=408) CALCIUM (BEAKER) (test 8.6 mg/dL 8.4-10.2 ekzq=308) EGFR (BEAKER) (test 129 mL/min/1.73 sq m ESTIMATED GFR IS NOT hibe=6054) ACCURATE CREATININE CLEARANCE IN PREDICTING GLOMERULAR FILTRATION RATE. ESTIMATED GFR IS NOT APPLICABLE FOR DIALYSIS PATIENTS. RAD, CHEST, 1 VIEW, NON [id number] 05:13:00Reason for exam:->pulmonary edemaShould this be performed at the bedside?->YesFINAL REPORT RAD, CHEST, 1 VIEW, NON DEPT INDICATION: pulmonary edema COMPARISON: Prior day's exam FINDINGS: Portable frontal view of the chest. IMPRESSION: Support Lines: Stable. Lungs and pleura: Unchanged airspace and pleural opacities. No pneumothorax.Heart and mediastinum: Stable contours. Additional findings: None. Signed: Stpehanie Tucker Verified Date/Time: 2018 05:13:16 Reading Location: [facility] C013T Transitional Reading Room CBC (HEMOGRAM ONLY)2018-05-31 04:10:00 Test Item Value Reference Range Comments WHITE BLOOD CELL COUNT (BEAKER) (test uhst=433) 16.5 K/ L 3.5-10.5 RED BLOOD CELL COUNT (BEAKER) (test hiuz=732) 3.44 M/ L 4.63-6.08 HEMOGLOBIN (BEAKER) (test yqmk=185) 8.6 GM/DL 13.7-17.5 HEMATOCRIT (BEAKER) (test rgdn=910) 26.7 % 40.1-51.0 MEAN CORPUSCULAR VOLUME (BEAKER) (test mibu=340) 77.6 fL 79.0-92.2 MEAN CORPUSCULAR HEMOGLOBIN (BEAKER) (test 25.0 pg 25.7-32.2 tjpc=755) MEAN CORPUSCULAR HEMOGLOBIN CONC (BEAKER) (test 32.2 GM/DL 32.3-36.5 ohuz=637) RED CELL DISTRIBUTION WIDTH (BEAKER) (test 25.2 % 11.6-14.4 gguo=728) PLATELET COUNT (BEAKER) (test mlqp=468) 417 K/CU MM 150-450 MEAN PLATELET VOLUME (BEAKER) (test dauq=135) 9.3 fL 9.4-12.4 NUCLEATED RED BLOOD CELLS (BEAKER) (test 0 /100 WBC 0-0 lqfc=467) POCT-GLUCOSE [id number] 00:20:00 Test Item Value Reference Range Comments POC-GLUCOSE METER (BEAKER) 96 mg/dL 70-[address] [facility] [address] [facility] (test hfqu=3159) [facility] [address] HEMOGLOBIN AND [id number] 23:22:00 Test Item Value Reference Range Comments HEMOGLOBIN (BEAKER) (test edsr=504) 9.0 GM/DL 13.7-17.5 HEMATOCRIT (BEAKER) (test xubh=677) 28.4 % 40.1-51.0 HEMOGLOBIN AND [id number] 19:16:00 Test Item Value Reference Range Comments HEMOGLOBIN (BEAKER) (test kxzb=586) 9.1 GM/DL 13.7-17.5 HEMATOCRIT (BEAKER) (test nhpk=385) 28.4 % 40.1-51.0 BASIC METABOLIC [id number] 14:17:00 Test Item Value Reference Range Comments SODIUM (BEAKER) (test 138 meq/L 136-145 fwfz=982) POTASSIUM (BEAKER) (test 4.5 meq/L 3.5-5.1 wefb=564) CHLORIDE (BEAKER) (test 109 meq/L 98-107 onzh=485) CO2 (BEAKER) (test 25 meq/L 22-29 apfu=808) BLOOD UREA NITROGEN 38 mg/dL 7-21 (BEAKER) (test idqh=252) CREATININE (BEAKER) (test 0.71 mg/dL 0.57-1.25 nfso=355) GLUCOSE RANDOM (BEAKER) 109 mg/dL 70-105 (test otwj=926) CALCIUM (BEAKER) (test 8.1 mg/dL 8.4-10.2 cmgu=370) EGFR (BEAKER) (test 117 mL/min/1.73 sq m ESTIMATED GFR IS NOT hvpt=9819) ACCURATE CREATININE CLEARANCE IN PREDICTING GLOMERULAR FILTRATION RATE. ESTIMATED GFR IS NOT APPLICABLE FOR DIALYSIS PATIENTS. HEMOGLOBIN AND [id number] 13:18:00 Test Item Value Reference Range Comments HEMOGLOBIN (BEAKER) (test toyg=210) 8.2 GM/DL 13.7-17.5 HEMATOCRIT (BEAKER) (test qngk=754) 26.0 % 40.1-51.0 POCT-GLUCOSE [id number] 12:23:00 Test Item Value Reference Range Comments POC-GLUCOSE METER (BEAKER) 130 mg/dL 70-[address] 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 SPPROCEDURE PERFORMED IN O.R. - PLEASE REFER TO THE INTRAOPERATIVE REPORT. POCT-GLUCOSE [id number] 05:59:00 Test Item Value Reference Range Comments POC-GLUCOSE METER (BEAKER) 124 mg/dL 70-[address] [facility] [address] [facility] (test vvdh=4000) [facility] [address] POCT-GLUCOSE [id number] 05:28:00 Test Item Value Reference Range Comments POC-GLUCOSE METER (BEAKER) 137 mg/dL 70-110 TESTED AT [place] [id number] [facility] (test abmm=1876) [facility] [address] [id number] 04:23:00 Test Item Value Reference Range Comments PHOSPHORUS (BEAKER) (test jitc=553) 4.0 mg/dL 2.3-4.7 [id number] 04:23:00 Test Item Value Reference Range Comments MAGNESIUM (BEAKER) (test atvr=558) 2.3 mg/dL 1.6-2.6 BASIC METABOLIC [id number] 04:23:00 Test Item Value Reference Range Comments SODIUM (BEAKER) (test 142 meq/L 136-145 cclh=732) POTASSIUM (BEAKER) (test 4.7 meq/L 3.5-5.1 qlvz=105) CHLORIDE (BEAKER) (test 113 meq/L 98-107 jrid=808) CO2 (BEAKER) (test 23 meq/L 22-29 qrgv=491) BLOOD UREA NITROGEN 48 mg/dL 7-21 (BEAKER) (test ilfl=304) CREATININE (BEAKER) (test 0.85 mg/dL 0.57-1.25 fdwc=109) GLUCOSE RANDOM (BEAKER) 100 mg/dL 70-105 (test qkrh=931) CALCIUM (BEAKER) (test 8.6 mg/dL 8.4-10.2 gbkc=858) EGFR (BEAKER) (test 95 mL/min/1.73 sq m ESTIMATED GFR IS NOT wwsz=7546) ACCURATE CREATININE CLEARANCE IN PREDICTING GLOMERULAR FILTRATION RATE. ESTIMATED GFR IS NOT APPLICABLE FOR DIALYSIS PATIENTS. CBC (HEMOGRAM ONLY)2018-05-30 04:21:00 Test Item Value Reference Range Comments WHITE BLOOD CELL COUNT (BEAKER) (test xceg=899) 16.9 K/ L 3.5-10.5 RED BLOOD CELL COUNT (BEAKER) (test peex=621) 3.42 M/ L 4.63-6.08 HEMOGLOBIN (BEAKER) (test btwi=286) 8.6 GM/DL 13.7-17.5 HEMATOCRIT (BEAKER) (test ymig=008) 26.8 % 40.1-51.0 MEAN CORPUSCULAR VOLUME (BEAKER) (test okrs=430) 78.4 fL 79.0-92.2 MEAN CORPUSCULAR HEMOGLOBIN (BEAKER) (test 25.1 pg 25.7-32.2 ycty=358) MEAN CORPUSCULAR HEMOGLOBIN CONC (BEAKER) (test 32.1 GM/DL 32.3-36.5 jjsu=076) RED CELL DISTRIBUTION WIDTH (BEAKER) (test 24.9 % 11.6-14.4 bnqg=204) PLATELET COUNT (BEAKER) (test jril=621) 395 K/CU MM 150-450 MEAN PLATELET VOLUME (BEAKER) (test owtv=469) 9.6 fL 9.4-12.4 NUCLEATED RED BLOOD CELLS (BEAKER) (test 0 /100 WBC 0-0 otra=962) BLOOD GAS, [id number] 04:12:00 Test Item Value Reference Range Comments PH ARTERIAL (BEAKER) (test ztqs=825) 7.50 7.35-7.45 PCO2 ARTERIAL (BEAKER) (test izrd=820) 29 mmHg 35-45 PO2 ARTERIAL (BEAKER) (test cbej=671) 208 mmHg 80-90 O2 SATURATION ARTERIAL (BEAKER) (test gjqe=827) 99.5 % 96.0-97.0 HCO3 ARTERIAL (BEAKER) (test lfgt=075) 22 mmol/L 21-29 BASE EXCESS ARTERIAL (BEAKER) (test tkjl=097) -0.6 mmol/L -2.0-3.0 PATIENT TEMPERATURE (BEAKER) (test beeg=8398) 37.0 C FIO2 (BEAKER) (test qfam=0526) 40.0 % POCT-GLUCOSE [id number] 00:33:00 Test Item Value Reference Range Comments POC-GLUCOSE METER (BEAKER) 338 mg/dL 70-110 Notified DAMIAN YBARRA/TESTED AT [facility] (test klfq=8043) [address] [place] [address] HEMOGLOBIN AND [id number] 00:20:00 Test Item Value Reference Range Comments HEMOGLOBIN (BEAKER) (test fhgd=882) 8.1 GM/DL 13.7-17.5 HEMATOCRIT (BEAKER) (test tmay=106) 25.2 % 40.1-51.0 RAD, CHEST, 1 VIEW, NON [id number] 21:06:00Reason for exam:->Evalute for pulmonary edemaShould this be performed at the bedside?->YesFINAL REPORT RAD, CHEST, 1 VIEW, NON DEPT INDICATION: Evaluate for pulmonary edema COMPARISON: Prior day's exam FINDINGS: Portable frontal view of the chest. IMPRESSION: Support Lines: Stable. Lungs and pleura: Persistent hazy bilateral airspace opacities could represent interstitial pulmonary edema. Unchanged left retrocardiac opacity and small left and right pleural effusion. No pneumothorax.Heart and mediastinum: Stable contours. Additional findings: None. Signed: Stephanie Tucker Verified Date/Time: 05/29/2018 21:06 :17 Reading Location: [address] Transitional Reading Room BASI METABOLIC [id number] 20:31:00 Test Item Value Reference Range Comments SODIUM (BEAKER) (test 138 meq/L 136-145 hqiq=205) POTASSIUM (BEAKER) (test 4.7 meq/L 3.5-5.1 Specimen slightly exyp=596) hemolyzed CHLORIDE (BEAKER) (test 113 meq/L 98-107 ueqg=353) CO2 (BEAKER) (test 19 meq/L 22-29 coml=969) BLOOD UREA NITROGEN 51 mg/dL 7-21 (BEAKER) (test neie=023) CREATININE (BEAKER) (test 0.99 mg/dL 0.57-1.25 Specimen slightly sdsa=301) hemolyzed GLUCOSE RANDOM (BEAKER) 121 mg/dL 70-105 (test fgow=427) CALCIUM (BEAKER) (test 7.8 mg/dL 8.4-10.2 yerk=177) EGFR (BEAKER) (test 79 mL/min/1.73 sq m ESTIMATED GFR IS NOT rsdq=7052) ACCURATE CREATININE CLEARANCE IN PREDICTING GLOMERULAR FILTRATION RATE. ESTIMATED GFR IS NOT APPLICABLE FOR DIALYSIS PATIENTS. [id number] 20:23:00 Test Item Value Reference Range Comments MAGNESIUM (BEAKER) (test 2.5 mg/dL 1.6-2.6 Specimen slightly hemolyzed xrkz=516) [id number] 20:23:00 Test Item Value Reference Range Comments PHOSPHORUS (BEAKER) (test 4.1 mg/dL 2.3-4.7 Specimen slightly hemolyzed agki=469) CBC W/PLT COUNT & AUTO [id number] 20:06:00 Test Item Value Reference Range Comments WHITE BLOOD CELL COUNT (BEAKER) (test qmpi=868) 15.9 K/ L 3.5-10.5 RED BLOOD CELL COUNT (BEAKER) (test bmtb=020) 3.12 M/ L 4.63-6.08 HEMOGLOBIN (BEAKER) (test lehc=314) 7.8 GM/DL 13.7-17.5 HEMATOCRIT (BEAKER) (test vsrk=966) 24.9 % 40.1-51.0 MEAN CORPUSCULAR VOLUME (BEAKER) (test mkdd=006) 79.8 fL 79.0-92.2 MEAN CORPUSCULAR HEMOGLOBIN (BEAKER) (test 25.0 pg 25.7-32.2 fawc=818) MEAN CORPUSCULAR HEMOGLOBIN CONC (BEAKER) (test 31.3 GM/DL 32.3-36.5 mijx=351) RED CELL DISTRIBUTION WIDTH (BEAKER) (test 24.6 % 11.6-14.4 kvxw=136) PLATELET COUNT (BEAKER) (test jghj=886) 357 K/CU MM 150-450 MEAN PLATELET VOLUME (BEAKER) (test zdkc=874) 9.9 fL 9.4-12.4 NUCLEATED RED BLOOD CELLS (BEAKER) (test 0 /100 WBC 0-0 mzkh=568) NEUTROPHILS RELATIVE PERCENT (BEAKER) (test 87 % apln=547) LYMPHOCYTES RELATIVE PERCENT (BEAKER) (test 5 % sfxm=800) MONOCYTES RELATIVE PERCENT (BEAKER) (test 5 % hdrw=344) EOSINOPHILS RELATIVE PERCENT (BEAKER) (test 1 % zckz=831) BASOPHILS RELATIVE PERCENT (BEAKER) (test 0 % nxrs=481) NEUTROPHILS ABSOLUTE COUNT (BEAKER) (test 13.73 K/ L 1.78-5.38 gwaj=712) LYMPHOCYTES ABSOLUTE COUNT (BEAKER) (test 0.73 K/ L 1.32-3.57 oejl=547) MONOCYTES ABSOLUTE COUNT (BEAKER) (test 0.74 K/ L 0.30-0.82 ltfj=800) EOSINOPHILS ABSOLUTE COUNT (BEAKER) (test 0.10 K/ L 0.04-0.54 qnia=572) BASOPHILS ABSOLUTE COUNT (BEAKER) (test 0.02 K/ L 0.01-0.08 kyok=889) IMMATURE GRANULOCYTES-RELATIVE PERCENT (BEAKER) 3 % 0-1 (test lmdf=4671) [id number] 17:38:00 Test Item Value Reference Range Comments PHOSPHORUS (BEAKER) (test zhem=941) 4.2 mg/dL 2.3-4.7 [id number] 17:38:00 Test Item Value Reference Range Comments MAGNESIUM (BEAKER) (test ajon=705) 2.5 mg/dL 1.6-2.6 BASIC METABOLIC [id number] 17:38:00 Test Item Value Reference Range Comments SODIUM (BEAKER) (test 140 meq/L 136-145 dhhz=672) POTASSIUM (BEAKER) (test 4.8 meq/L 3.5-5.1 qfah=629) CHLORIDE (BEAKER) (test 115 meq/L 98-107 jbck=760) CO2 (BEAKER) (test 25 meq/L 22-29 qtbh=770) BLOOD UREA NITROGEN 57 mg/dL 7-21 (BEAKER) (test ygzu=148) CREATININE (BEAKER) (test 1.14 mg/dL 0.57-1.25 llvp=519) GLUCOSE RANDOM (BEAKER) 121 mg/dL 70-105 (test pebq=267) CALCIUM (BEAKER) (test 8.3 mg/dL 8.4-10.2 ixue=003) EGFR (BEAKER) (test 67 mL/min/1.73 sq m ESTIMATED GFR IS NOT iiwa=2816) ACCURATE CREATININE CLEARANCE IN PREDICTING GLOMERULAR FILTRATION RATE. ESTIMATED GFR IS NOT APPLICABLE FOR DIALYSIS PATIENTS. VANCOMYCIN LEVEL, [id number] 17:37:00 Test Item Value Reference Range Comments VANCOMYCIN TROUGH (BEAKER) (test qzas=687) 21.7 ug/mL 10.0-20.0 Please draw 30 min before 4th doseHEMOGLOBIN AND [id number] 17:16:00 Test Item Value Reference Range Comments HEMOGLOBIN (BEAKER) (test zkox=736) 7.8 GM/DL 13.7-17.5 HEMATOCRIT (BEAKER) (test gaoh=330) 24.8 % 40.1-51.0 POCT-GLUCOSE [id number] 12:46:00 Test Item Value Reference Range Comments POC-GLUCOSE METER (BEAKER) 134 mg/dL 70-110 TESTED AT [address] (test rsww=0748) [place] [id number] HEMOGLOBIN AND [id number] 09:06:00 Test Item Value Reference Range Comments HEMOGLOBIN (BEAKER) (test bdqt=235) 8.4 GM/DL 13.7-17.5 HEMATOCRIT (BEAKER) (test kzio=939) 26.7 % 40.1-51.0 POCT-GLUCOSE [id number] 06:31:00 Test Item Value Reference Range Comments POC-GLUCOSE METER (BEAKER) 101 mg/dL 70-110 TESTED AT [address] (test jkxc=3968) [facility] [address] CREATININE, RANDOM [id number] 06:18:00 Test Item Value Reference Range Comments CREATININE URINE (BEAKER) (test hted=938) 32.9 mg/dL Reference Range: No NormalsSODIUM, RANDOM [id number] 06:18:00 Test Item Value Reference Range Comments SODIUM URINE (BEAKER) (test cypr=584) 38 meq/L Reference Range: No NormalsUREA NITROGEN, RANDOM [id number] 06:18:00 Test Item Value Reference Range Comments UREA NITROGEN URINE (BEAKER) (test ugam=192) 720 mg/dL Reference Range: No NormalsLACTIC ACID, ARTERIAL, WHOLE [id number] 06:01:00 Test Item Value Reference Range Comments LACTATE BLOOD ARTERIAL (2) 0.9 mmol/L 0.5-2.2 Specimen slightly hemolyzed (BEAKER) (test njxg=9580) BLOOD GAS, [id number] 04:53:00 Test Item Value Reference Range Comments PH ARTERIAL (BEAKER) (test fgxz=673) 7.31 7.35-7.45 PCO2 ARTERIAL (BEAKER) (test fwts=244) 40 mmHg 35-45 PO2 ARTERIAL (BEAKER) (test skrn=948) 141 mmHg 80-90 O2 SATURATION ARTERIAL (BEAKER) (test upkh=682) 98.6 % 96.0-97.0 HCO3 ARTERIAL (BEAKER) (test qdel=068) 20 mmol/L 21-29 BASE EXCESS ARTERIAL (BEAKER) (test nwjp=855) -5.8 mmol/L -2.0-3.0 PATIENT TEMPERATURE (BEAKER) (test wqik=3460) 36.5 C FIO2 (BEAKER) (test cgdl=6635) 65.0 % [id number] 04:33:00 Test Item Value Reference Range Comments PHOSPHORUS (BEAKER) (test nlgu=441) 4.0 mg/dL 2.3-4.7 [id number] 04:33:00 Test Item Value Reference Range Comments MAGNESIUM (BEAKER) (test wthe=119) 2.6 mg/dL 1.6-2.6 BASIC METABOLIC [id number] 04:33:00 Test Item Value Reference Range Comments SODIUM (BEAKER) (test 138 meq/L 136-145 egll=091) POTASSIUM (BEAKER) (test 4.7 meq/L 3.5-5.1 gcom=144) CHLORIDE (BEAKER) (test 114 meq/L 98-107 mmqn=462) CO2 (BEAKER) (test 20 meq/L 22-29 iknb=975) BLOOD UREA NITROGEN 55 mg/dL 7-21 (BEAKER) (test jcdi=908) CREATININE (BEAKER) (test 1.32 mg/dL 0.57-1.25 eyac=186) GLUCOSE RANDOM (BEAKER) 120 mg/dL 70-105 (test hfiq=893) CALCIUM (BEAKER) (test 8.3 mg/dL 8.4-10.2 utzp=965) EGFR (BEAKER) (test 57 mL/min/1.73 sq m ESTIMATED GFR IS NOT emwi=5485) ACCURATE CREATININE CLEARANCE IN PREDICTING GLOMERULAR FILTRATION RATE. ESTIMATED GFR IS NOT APPLICABLE FOR DIALYSIS PATIENTS. CBC (HEMOGRAM ONLY)2018-05-29 04:22:00 Test Item Value Reference Range Comments WHITE BLOOD CELL COUNT 19.3 K/ L 3.5-10.5 (BEAKER) (test kecr=706) RED BLOOD CELL COUNT (BEAKER) 3.38 M/ L 4.63-6.08 (test btoi=798) HEMOGLOBIN (BEAKER) (test 8.3 GM/DL 13.7-17.5 rfjl=277) HEMATOCRIT (BEAKER) (test 27.2 % 40.1-51.0 ctjb=190) MEAN CORPUSCULAR VOLUME 80.5 fL 79.0-92.2 Discordant MCV result (BEAKER) (test npuv=504) compared to previous one; Clinical correlation required. MEAN CORPUSCULAR HEMOGLOBIN 24.6 pg 25.7-32.2 (BEAKER) (test rygs=300) MEAN CORPUSCULAR HEMOGLOBIN 30.5 GM/DL 32.3-36.5 CONC (BEAKER) (test xlkn=178) RED CELL DISTRIBUTION WIDTH 24.0 % 11.6-14.4 (BEAKER) (test qsoq=703) PLATELET COUNT (BEAKER) (test 342 K/CU MM 150-450 wjzb=695) MEAN PLATELET VOLUME (BEAKER) 9.7 fL 9.4-12.4 (test tvbe=145) NUCLEATED RED BLOOD CELLS 0 /100 WBC 0-0 (BEAKER) (test sulr=751) RAD, CHEST, 1 VIEW, NON [id number] 02:33:00Reason for exam:-> effusionShould this be performed at the bedside?->YesFINAL REPORT CLINICAL INDICATION: Effusion Comparison: 05/27/2018 The cardiomediastinal contours are stable. There is central pulmonary vascular congestion, worsened from previous. Small bilateral pleural effusions, left greater than right are similar to previous. Hazy airspace opacification in the mid and lower lungs may reflect a combination of atelectasis, effusion and edema but pneumonitis should be excluded clinically. There is no pneumothorax. Support lines are stable. Signed: Naveen Angeles Verified Date/Time: 02:33:44 Reading Location: [address] Reading Room POCT- GLUCOSE [id number] 00:16:00 Test Item Value Reference Range Comments POC-GLUCOSE METER (BEAKER) 106 mg/dL 70-[address] [facility] [address] (test xkwp=8168) [facility] [address] BASIC METABOLIC [id number] 23:30:00 Test Item Value Reference Range Comments SODIUM (BEAKER) (test 139 meq/L 136-145 pmuy=761) POTASSIUM (BEAKER) (test 5.0 meq/L 3.5-5.1 fhhx=584) CHLORIDE (BEAKER) (test 114 meq/L 98-107 xhuj=516) CO2 (BEAKER) (test 19 meq/L 22-29 nxrj=447) BLOOD UREA NITROGEN 51 mg/dL 7-21 (BEAKER) (test dbqa=699) CREATININE (BEAKER) (test 1.11 mg/dL 0.57-1.25 arct=754) GLUCOSE RANDOM (BEAKER) 115 mg/dL 70-105 (test ucmy=215) CALCIUM (BEAKER) (test 8.2 mg/dL 8.4-10.2 scpp=138) EGFR (BEAKER) (test 70 mL/min/1.73 sq m ESTIMATED GFR IS NOT qsyt=6760) ACCURATE CREATININE CLEARANCE IN PREDICTING GLOMERULAR FILTRATION RATE. ESTIMATED GFR IS NOT APPLICABLE FOR DIALYSIS PATIENTS. HEMOGLOBIN AND [id number] 22:24:00 Test Item Value Reference Range Comments HEMOGLOBIN (BEAKER) (test btnf=470) 9.0 GM/DL 13.7-17.5 HEMATOCRIT (BEAKER) (test brvo=237) 28.7 % 40.1-51.0 HEMOGLOBIN AND [id number] 20:28:00 Test Item Value Reference Range Comments HEMOGLOBIN (BEAKER) (test conh=373) 8.5 GM/DL 13.7-17.5 HEMATOCRIT (BEAKER) (test kwls=946) 27.4 % 40.1-51.0 LACTIC ACID, ARTERIAL, WHOLE [id number] 19:23:00 Test Item Value Reference Range Comments LACTATE BLOOD ARTERIAL (2) (BEAKER) (test 0.9 mmol/L 0.5-2.2 jceu=1183) SPIN/CONCENTRATION [id number] 15:19:00 Test Item Value Reference Range Comments CONCENTRATION CHARGED (BEAKER) (test lvhf=2108) Done BLOOD [id number] 13:00:00 Test Item Value Reference Range Comments CULTURE (BEAKER) (test lxnb=2987) No growth in 5 days BLOOD [id number] 13:00:00 Test Item Value Reference Range Comments CULTURE (BEAKER) (test dinb=4903) No growth in 5 days LACTIC ACID, ARTERIAL, WHOLE [id number] 10:45:00 Test Item Value Reference Range Comments LACTATE BLOOD ARTERIAL (2) (BEAKER) (test 1.1 mmol/L 0.5-2.2 lqnv=9994) HEMOGLOBIN AND [id number] 10:29:00 Test Item Value Reference Range Comments HEMOGLOBIN (BEAKER) (test pzcb=114) 8.2 GM/DL 13.7-17.5 HEMATOCRIT (BEAKER) (test vdtu=066) 26.8 % 40.1-51.0 HEMOGLOBIN AND [id number] 06:53:00 Test Item Value Reference Range Comments HEMOGLOBIN (BEAKER) (test yinr=201) 5.9 GM/DL 13.7-17.5 HEMATOCRIT (BEAKER) (test vgmu=882) 19.6 % 40.1-51.0 LACTIC ACID, ARTERIAL, WHOLE [id number] 06:48:00 Test Item Value Reference Range Comments LACTATE BLOOD ARTERIAL (2) (BEAKER) (test 1.1 mmol/L 0.5-2.2 twgt=9488) [id number] 04:36:00 Test Item Value Reference Range Comments TRIGLYCERIDES (BEAKER) (test kwxr=171) 87 mg/dL TRIGLYCERIDE REFERENCE RANGELow Risk <150Borderline Risk 150-199High Risk 200-499Very High Risk>=[id number] 04:36:00 Test Item Value Reference Range Comments MAGNESIUM (BEAKER) (test ctkf=527) 1.9 mg/dL 1.6-2.6 [id number] 04:36:00 Test Item Value Reference Range Comments PHOSPHORUS (BEAKER) (test qyoe=928) 3.5 mg/dL 2.3-4.7 HEPATIC FUNCTION [id number] 04:36:00 Test Item Value Reference Range Comments TOTAL PROTEIN (BEAKER) (test hafu=929) 4.1 gm/dL 6.0-8.3 ALBUMIN (BEAKER) (test ncnl=7690) 2.6 g/dL 3.5-5.0 BILIRUBIN TOTAL (BEAKER) (test lkrw=517) 0.5 mg/dL 0.2-1.2 BILIRUBIN DIRECT (BEAKER) (test pcda=802) 0.3 mg/dL 0.1-0.5 ALKALINE PHOSPHATASE (BEAKER) (test uapi=375) 69 U/L 40-150 AST (SGOT) (BEAKER) (test rtfh=172) 33 U/L 5-34 ALT (SGPT) (BEAKER) (test esvq=011) 24 U/L 6-55 BASIC METABOLIC [id number] 04:36:00 Test Item Value Reference Range Comments SODIUM (BEAKER) (test 141 meq/L 136-145 kqzs=709) POTASSIUM (BEAKER) (test 4.4 meq/L 3.5-5.1 hdzs=860) CHLORIDE (BEAKER) (test 115 meq/L 98-107 bnrm=466) CO2 (BEAKER) (test 22 meq/L 22-29 pesj=989) BLOOD UREA NITROGEN 38 mg/dL 7-21 (BEAKER) (test uwmd=405) CREATININE (BEAKER) (test 0.65 mg/dL 0.57-1.25 fpvd=559) GLUCOSE RANDOM (BEAKER) 137 mg/dL 70-105 (test gqda=098) CALCIUM (BEAKER) (test 7.6 mg/dL 8.4-10.2 mwoy=964) EGFR (BEAKER) (test 129 mL/min/1.73 sq m ESTIMATED GFR IS NOT fgtv=7563) ACCURATE CREATININE CLEARANCE IN PREDICTING GLOMERULAR FILTRATION RATE. ESTIMATED GFR IS NOT APPLICABLE FOR DIALYSIS PATIENTS. [id number] 04:32:00 Test Item Value Reference Range Comments PREALBUMIN (BEAKER) (test ldlu=439) < mg/dL 14-45 CBC (HEMOGRAM ONLY)2018-05-28 04:32:00 Test Item Value Reference Range Comments WHITE BLOOD CELL COUNT (BEAKER) (test utht=919) 24.9 K/ L 3.5-10.5 RED BLOOD CELL COUNT (BEAKER) (test nrtu=331) 2.78 M/ L 4.63-6.08 HEMOGLOBIN (BEAKER) (test bdje=942) 6.5 GM/DL 13.7-17.5 HEMATOCRIT (BEAKER) (test gllc=153) 21.0 % 40.1-51.0 MEAN CORPUSCULAR VOLUME (BEAKER) (test piyv=612) 75.5 fL 79.0-92.2 MEAN CORPUSCULAR HEMOGLOBIN (BEAKER) (test 23.4 pg 25.7-32.2 pkue=424) MEAN CORPUSCULAR HEMOGLOBIN CONC (BEAKER) (test 31.0 GM/DL 32.3-36.5 mhjx=057) RED CELL DISTRIBUTION WIDTH (BEAKER) (test 24.2 % 11.6-14.4 ozsp=899) PLATELET COUNT (BEAKER) (test azwz=549) 374 K/CU MM 150-450 MEAN PLATELET VOLUME (BEAKER) (test jmzx=526) 10.0 fL 9.4-12.4 NUCLEATED RED BLOOD CELLS (BEAKER) (test 0 /100 WBC 0-0 kygj=554) BLOOD GAS, [id number] 04:24:00 Test Item Value Reference Range Comments PH ARTERIAL (BEAKER) (test jcon=960) 7.35 7.35-7.45 PCO2 ARTERIAL (BEAKER) (test sgdn=182) 39 mmHg 35-45 PO2 ARTERIAL (BEAKER) (test pznv=246) 96 mmHg 80-90 O2 SATURATION ARTERIAL (BEAKER) (test hmtb=472) 97.2 % 96.0-97.0 HCO3 ARTERIAL (BEAKER) (test tkgf=501) 21 mmol/L 21-29 BASE EXCESS ARTERIAL (BEAKER) (test ebne=124) -4.1 mmol/L -2.0-3.0 PATIENT TEMPERATURE (BEAKER) (test jmfj=2031) 36.5 C FIO2 (BEAKER) (test pfod=6236) 50.0 % LACTIC ACID, ARTERIAL, WHOLE [id number] 02:51:00 Test Item Value Reference Range Comments LACTATE BLOOD ARTERIAL (2) (BEAKER) (test 1.4 mmol/L 0.5-2.2 wxji=0974) BASIC METABOLIC [id number] 23:55:00 Test Item Value Reference Range Comments SODIUM (BEAKER) (test 140 meq/L 136-145 exsv=818) POTASSIUM (BEAKER) (test 4.5 meq/L 3.5-5.1 tmfy=416) CHLORIDE (BEAKER) (test 115 meq/L 98-107 iroe=776) CO2 (BEAKER) (test 18 meq/L 22-29 yvyi=565) BLOOD UREA NITROGEN 42 mg/dL 7-21 (BEAKER) (test xidm=308) CREATININE (BEAKER) (test 0.74 mg/dL 0.57-1.25 vuuj=536) GLUCOSE RANDOM (BEAKER) 148 mg/dL 70-105 (test auiu=679) CALCIUM (BEAKER) (test 7.2 mg/dL 8.4-10.2 fedy=799) EGFR (BEAKER) (test 111 mL/min/1.73 sq m ESTIMATED GFR IS NOT qciv=9332) ACCURATE CREATININE CLEARANCE IN PREDICTING GLOMERULAR FILTRATION RATE. ESTIMATED GFR IS NOT APPLICABLE FOR DIALYSIS PATIENTS. [id number] 23:08:00 Test Item Value Reference Range Comments PHOSPHORUS (BEAKER) (test ftmv=767) 5.3 mg/dL 2.3-4.7 [id number] 23:08:00 Test Item Value Reference Range Comments MAGNESIUM (BEAKER) (test acgi=978) 1.9 mg/dL 1.6-2.6 C-REACTIVE [id number] 23:08:00 Test Item Value Reference Range Comments C-REACTIVE PROTEIN (BEAKER) (test oggm=150) 18.37 mg/dL 0.00-0.50 LACTIC ACID, ARTERIAL, WHOLE [id number] 23:06:00 Test Item Value Reference Range Comments LACTATE BLOOD ARTERIAL (2) (BEAKER) (test 2.4 mmol/L 0.5-2.2 npts=1984) RAD, CHEST, 1 VIEW, NON [id number] 23:00:00Reason for exam:->intubated post opShould this be performed at the bedside?->YesFINAL REPORT RAD, CHEST, 1 VIEW, NON DEPT INDICATION: intubated post op COMPARISON: Prior day's exam FINDINGS: Portable frontal view of the chest. IMPRESSION: Support Lines: Interval intubation with an endotracheal tube terminating 7.3 cm above the taco. Otherwise unchangedsupport apparatus. Lungs and pleura: Improved aeration of the right base with persistent pulmonary vascular congestion. Unchanged left retrocardiac opacity and small left pleural effusion. No pneumothorax.Heart and mediastinum: Stable contours. Additional findings: Surgical drains over the left upper quadrant. Signed: Stephanie Tuckerepmyla Verified Date/Time: 05/27/2018 23:00:22 Reading Location: [address] Transitional Reading Room Electronically signed by: STEPHANIE TUCKER MD on05/27/2018 11:00 [id number] 22:50:00 Test Item Value Reference Range Comments PROTIME (BEAKER) (test nrho=762) 17.1 seconds 11.7-14.7 INR (BEAKER) (test rhac=554) 1.4 <=5.9 PARTIAL THROMBOPLASTIN TIME (BEAKER) (test 36.4 seconds 22.5-36.0 mzei=395) RECOMMENDED COUMADIN/WARFARIN INR THERAPY RANGESSTANDARD DOSE: 2.0 - 3.0 Includes: PROPHYLAXIS forvenous thrombosis, systemic embolization; TREATMENT for venous thrombosis and/or pulmonary embolus.HIGH RISK: Target INR is 2.5-3.5 for patients with mechanical heart valves.HEMOGLOBIN AND [id number] 22 :41:00 Test Item Value Reference Range Comments HEMOGLOBIN (BEAKER) (test iasw=901) 8.5 GM/DL 13.7-17.5 HEMATOCRIT (BEAKER) (test iydz=600) 28.1 % 40.1-51.0 BLOOD GAS, [id number] 22:39:00 Test Item Value Reference Range Comments PH ARTERIAL (BEAKER) (test uupb=251) 7.33 7.35-7.45 PCO2 ARTERIAL (BEAKER) (test pmgr=549) 37 mmHg 35-45 PO2 ARTERIAL (BEAKER) (test ahoj=155) 70 mmHg 80-90 O2 SATURATION ARTERIAL (BEAKER) (test keyy=409) 94.0 % 96.0-97.0 HCO3 ARTERIAL (BEAKER) (test gghy=402) 19 mmol/L 21-29 BASE EXCESS ARTERIAL (BEAKER) (test tysr=928) -6.3 mmol/L -2.0-3.0 PATIENT TEMPERATURE (BEAKER) (test axdd=9735) 36.0 C FIO2 (BEAKER) (test jhvh=2072) 50.0 % CT, [id number] 17:13:00FINAL REPORT ABDOMINAL AND PELVIS CT DATED 05/27/2018 CLINICAL INFORMATION:Abd pain, fever, abscess suspected TECHNIQUE: Axial images of the abdomen and pelvis were obtained from diaphragm to the pubic symphysis with intravenous contrast. This exam was performed according to our departmental dose-optimization program, which includes automated exposure control, adjustment of the mA and/or kV according to patient size and/or use of interactive reconstruction technique. COMMENT: There is small right pleural effusion and moderate left pleural effusion. Subsegmental atelectasis is seen both lower lobes. Large free air is seen in the anterior abdomen. Moderate to large amountof free fluid is present in the abdomen pelvis. Liver and spleen are normal in size without focal abnormality. There is diffusely decreased attenuation in the liver consistent with fatty hepatic infiltrate. Gallbladder is distended. No gallstone or biliary dilatation is noted. Pancreas and adrenals are unremarkable. Both kidneys are normal in size and functioning. No hydronephrosis, hydroureter, urolithiasis is seen. The small and large bowel are suboptimally evaluated secondary to lack of GI contrast. No small large dilatation is seen. Prostate is normal in size. The urinary bladder is contracted. There is diffusely increased attenuation in the subcutaneous soft tissue of the abdomen and pelvis suggestive of edema. IMPRESSION: 1. Large pneumoperitoneum suspicious for ruptured viscus.2. Ascites and anasarca.3. Bilateral pleural effusion with bibasilar subsegmental atelectasis. The findings were relayed to Dr. Bundy at the time of the dictation. Signed: Dima Avalos MDReport Verified Date/Time: 05/27/2018 17:13:57 Reading Location: [address] Consult Reading Room PT/ [id number] 15:53:00 Test Item Value Reference Range Comments PROTIME (BEAKER) (test vdsb=962) 17.2 seconds 11.7-14.7 INR (BEAKER) (test amrg=780) 1.4 <=5.9 PARTIAL THROMBOPLASTIN TIME (BEAKER) (test 24.2 seconds 22.5-36.0 mvzd=818) RECOMMENDED COUMADIN/WARFARIN INR THERAPY RANGESSTANDARD DOSE: 2.0 - 3.0 Includes: PROPHYLAXIS forvenous thrombosis, systemic embolization; TREATMENT for venous thrombosis and/or pulmonary embolus.HIGH RISK: Target INR is 2.5-3.5 for patients with mechanical heart valves.PROTHROMBIN [id number] 15:52: 00 Test Item Value Reference Range Comments PROTIME (BEAKER) (test wpwt=415) 17.2 seconds 11.7-14.7 INR (BEAKER) (test kcpr=157) 1.4 <=5.9 RECOMMENDED COUMADIN/WARFARIN INR THERAPY RANGESSTANDARD DOSE: 2.0 - 3.0 Includes: PROPHYLAXIS forvenous thrombosis, systemic embolization; TREATMENT for venous thrombosis and/or pulmonary embolus.HIGH RISK: Target INR is 2.5-3.5 for patients with mechanical heart valves.URINALYSIS W/ REFLEX URINE [id number] 14:56:00 Test Item Value Reference Range Comments COLOR (BEAKER) (test cxfn=366) Yellow CLARITY (BEAKER) (test gnqe=434) Clear SPECIFIC GRAVITY UA (BEAKER) (test aodz=359) 1.022 1.001-1.035 PH UA (BEAKER) (test aasq=909) 5.5 5.0-8.0 PROTEIN UA (BEAKER) (test hmjt=332) 20 mg/dL Negative GLUCOSE UA (BEAKER) (test ffsg=496) Negative Negative KETONES UA (BEAKER) (test wxml=995) Negative Negative BILIRUBIN UA (BEAKER) (test utej=307) Negative Negative BLOOD UA (BEAKER) (test dbzk=742) Trace Negative NITRITE UA (BEAKER) (test hzie=751) Negative Negative LEUKOCYTE ESTERASE UA (BEAKER) (test kkyz=495) Negative Negative UROBILINOGEN UA (BEAKER) (test qzdh=994) 0.2 mg/dL 0.2-1.0 RBC UA (BEAKER) (test zvir=802) 6 /HPF WBC UA (BEAKER) (test nggc=095) 3 /HPF BACTERIA (BEAKER) (test pieo=073) Occasional MUCUS (BEAKER) (test zfae=6877) Occasional SQUAMOUS EPITHELIAL (BEAKER) (test kzak=622) < /HPF HYALINE CASTS (BEAKER) (test xdtx=747) 2 /LPF GRANULAR CASTS (BEAKER) (test dsie=077) 1 /LPF YEAST (BEAKER) (test ultv=2313) Moderate SOURCE(BEAKER) (test vxda=5207) VANCOMYCIN LEVEL, [id number] 12:05:00 Test Item Value Reference Range Comments VANCOMYCIN TROUGH (BEAKER) (test jgfb=778) 7.5 ug/mL 10.0-20.0 BASIC METABOLIC [id number] 05:53:00 Test Item Value Reference Range Comments SODIUM (BEAKER) (test 139 meq/L 136-145 mkue=819) POTASSIUM (BEAKER) (test 3.6 meq/L 3.5-5.1 sxbs=037) CHLORIDE (BEAKER) (test 112 meq/L 98-107 bxtt=837) CO2 (BEAKER) (test 21 meq/L 22-29 bmmf=854) BLOOD UREA NITROGEN 35 mg/dL 7-21 (BEAKER) (test jdwm=639) CREATININE (BEAKER) (test 0.65 mg/dL 0.57-1.25 ltwx=139) GLUCOSE RANDOM (BEAKER) 116 mg/dL 70-105 (test gtbi=525) CALCIUM (BEAKER) (test 7.9 mg/dL 8.4-10.2 ucxf=206) EGFR (BEAKER) (test 129 mL/min/1.73 sq m ESTIMATED GFR IS NOT crrd=1548) ACCURATE CREATININE CLEARANCE IN PREDICTING GLOMERULAR FILTRATION RATE. ESTIMATED GFR IS NOT APPLICABLE FOR DIALYSIS PATIENTS. [id number] 05:48:00 Test Item Value Reference Range Comments PHOSPHORUS (BEAKER) (test gxff=000) 3.4 mg/dL 2.3-4.7 [id number] 05:48:00 Test Item Value Reference Range Comments MAGNESIUM (BEAKER) (test hdsb=092) 1.7 mg/dL 1.6-2.6 POCT-GLUCOSE [id number] 05:37:00 Test Item Value Reference Range Comments POC-GLUCOSE METER (BEAKER) 133 mg/dL 70-[address] [facility] [address] [facility] (test kinu=8176) [facility] [address] CBC (HEMOGRAM ONLY)2018-05-27 05:28:00 Test Item Value Reference Range Comments WHITE BLOOD CELL COUNT (BEAKER) (test oczv=898) 33.9 K/ L 3.5-10.5 RED BLOOD CELL COUNT (BEAKER) (test ijhl=753) 3.96 M/ L 4.63-6.08 HEMOGLOBIN (BEAKER) (test pojx=609) 9.0 GM/DL 13.7-17.5 HEMATOCRIT (BEAKER) (test nftx=201) 29.5 % 40.1-51.0 MEAN CORPUSCULAR VOLUME (BEAKER) (test biim=899) 74.5 fL 79.0-92.2 MEAN CORPUSCULAR HEMOGLOBIN (BEAKER) (test 22.7 pg 25.7-32.2 bqpc=090) MEAN CORPUSCULAR HEMOGLOBIN CONC (BEAKER) (test 30.5 GM/DL 32.3-36.5 kgas=484) RED CELL DISTRIBUTION WIDTH (BEAKER) (test 24.8 % 11.6-14.4 gyzi=945) PLATELET COUNT (BEAKER) (test svwt=189) 618 K/CU MM 150-450 MEAN PLATELET VOLUME (BEAKER) (test qnai=974) 9.5 fL 9.4-12.4 NUCLEATED RED BLOOD CELLS (BEAKER) (test 0 /100 WBC 0-0 pdgt=624) LACTIC ACID, VENOUS, WHOLE [id number] 05:11:00 Test Item Value Reference Range Comments LACTATE BLOOD VENOUS (2) (BEAKER) (test 1.3 mmol/L 0.5-2.2 yymo=1874) POCT-GLUCOSE [id number] 00:17:00 Test Item Value Reference Range Comments POC-GLUCOSE METER (BEAKER) 120 mg/dL 70-110 TESTED AT [address] (test vdfr=9276) [facility] [address] RHONDA ANTIGEN [id number] 18:08:00 Test Item Value Reference Range Comments RHONDA ANTIGEN TITER (BEAKER) (test vhfk=155) :8 RHONDA ANTIGEN WITH REFLEX TO [id number] 18:07:00 Test Item Value Reference Range Comments RHONDA ANTIGEN (BEAKER) (test zugg=1049) Positive POCT-GLUCOSE [id number] 18:06:00 Test Item Value Reference Range Comments POC-GLUCOSE METER (BEAKER) 119 mg/dL 70-110 TESTED AT [address] (test yptp=0676) [facility] [address] C. DIFFICILE GDH [id number] 13:58:00 Test Item Value Reference Range Comments CDT TOXIN (test Negative Negative kdxk=[id number]) CDT GDH ANTIGEN (test Negative Negative No indication of Clostridium eyyi=[id number]) difficile infection and no colonization. Discontinue enteric isolation and therapy. Testing performed by [employer] [facility] [employer] Rapid Cassette Assay. For GDH, published sensitivity of the assay is 98.7% compared to cytotoxicity testing. For Toxin AB, published sensitivity is 87.8% and specificity 99.4% compared to cytotoxicity testing.Verification of kit performance was done by the [facility] Microbiology Lab prior to clinical use.POCT-GLUCOSE [id number] 12:54:00 Test Item Value Reference Range Comments POC-GLUCOSE METER (BEAKER) 136 mg/dL 70-110 TESTED AT [address] (test poqs=0993) [facility] [address] POCT-GLUCOSE [id number] 06:19:00 Test Item Value Reference Range Comments POC-GLUCOSE METER (BEAKER) 139 mg/dL 70-110 TESTED AT [address] (test wlcv=8702) [facility] [address] CALCIUM, [id number] 04:29:00 Test Item Value Reference Range Comments CALCIUM IONIZED (BEAKER) (test kvgd=364) 1.07 mmol/L 1.12-1.27 PH, BLOOD (BEAKER) (test etem=9307) 7.44 [id number] 04:01:00 Test Item Value Reference Range Comments PHOSPHORUS (BEAKER) (test uwgf=080) 3.3 mg/dL 2.3-4.7 [id number] 04:01:00 Test Item Value Reference Range Comments MAGNESIUM (BEAKER) (test egkd=349) 1.6 mg/dL 1.6-2.6 BASIC METABOLIC [id number] 04:01:00 Test Item Value Reference Range Comments SODIUM (BEAKER) (test 139 meq/L 136-145 empu=846) POTASSIUM (BEAKER) (test 3.7 meq/L 3.5-5.1 pzel=957) CHLORIDE (BEAKER) (test 111 meq/L 98-107 pwqb=072) CO2 (BEAKER) (test 22 meq/L 22-29 bvlh=869) BLOOD UREA NITROGEN 31 mg/dL 7-21 (BEAKER) (test akba=615) CREATININE (BEAKER) (test 0.68 mg/dL 0.57-1.25 xjjz=343) GLUCOSE RANDOM (BEAKER) 116 mg/dL 70-105 (test kakl=256) CALCIUM (BEAKER) (test 8.1 mg/dL 8.4-10.2 ysfr=758) EGFR (BEAKER) (test 122 mL/min/1.73 sq m ESTIMATED GFR IS NOT qytb=8131) ACCURATE CREATININE CLEARANCE IN PREDICTING GLOMERULAR FILTRATION RATE. ESTIMATED GFR IS NOT APPLICABLE FOR DIALYSIS PATIENTS. CBC (HEMOGRAM ONLY)2018-05-26 03:47:00 Test Item Value Reference Range Comments WHITE BLOOD CELL COUNT (BEAKER) (test srdr=007) 26.7 K/ L 3.5-10.5 RED BLOOD CELL COUNT (BEAKER) (test srce=366) 3.89 M/ L 4.63-6.08 HEMOGLOBIN (BEAKER) (test glpe=061) 8.9 GM/DL 13.7-17.5 HEMATOCRIT (BEAKER) (test cpmi=753) 29.0 % 40.1-51.0 MEAN CORPUSCULAR VOLUME (BEAKER) (test tcwo=126) 74.6 fL 79.0-92.2 MEAN CORPUSCULAR HEMOGLOBIN (BEAKER) (test 22.9 pg 25.7-32.2 stiq=576) MEAN CORPUSCULAR HEMOGLOBIN CONC (BEAKER) (test 30.7 GM/DL 32.3-36.5 dfcx=863) RED CELL DISTRIBUTION WIDTH (BEAKER) (test 24.9 % 11.6-14.4 ujue=564) PLATELET COUNT (BEAKER) (test gyac=903) 551 K/CU MM 150-450 MEAN PLATELET VOLUME (BEAKER) (test dnhq=242) 9.7 fL 9.4-12.4 NUCLEATED RED BLOOD CELLS (BEAKER) (test 0 /100 WBC 0-0 iszl=453) LACTIC ACID, VENOUS, WHOLE [id number] 03:46:00 Test Item Value Reference Range Comments LACTATE BLOOD VENOUS (2) (BEAKER) (test 1.6 mmol/L 0.5-2.2 dikr=7184) POCT-GLUCOSE [id number] 00:00:00 Test Item Value Reference Range Comments POC-GLUCOSE METER (BEAKER) 135 mg/dL 70-110 TESTED AT [address] (test fzmo=0142) [place] [address] URINALYSIS W/ REFLEX URINE [id number] 20:31:00 Test Item Value Reference Range Comments COLOR (BEAKER) (test mnvb=328) Yellow CLARITY (BEAKER) (test vlxm=007) Clear SPECIFIC GRAVITY UA (BEAKER) (test rckz=603) 1.035 1.001-1.035 PH UA (BEAKER) (test nphx=783) 5.5 5.0-8.0 PROTEIN UA (BEAKER) (test jctw=169) 20 mg/dL Negative GLUCOSE UA (BEAKER) (test haxw=412) Negative Negative KETONES UA (BEAKER) (test mjus=565) Trace Negative BILIRUBIN UA (BEAKER) (test ixpr=214) Negative Negative BLOOD UA (BEAKER) (test twsv=475) Negative Negative NITRITE UA (BEAKER) (test ngmk=829) Negative Negative LEUKOCYTE ESTERASE UA (BEAKER) (test benl=962) Negative Negative UROBILINOGEN UA (BEAKER) (test zfya=572) 0.2 mg/dL 0.2-1.0 RBC UA (BEAKER) (test lnuf=302) 0 /HPF WBC UA (BEAKER) (test gxes=688) 4 /HPF SQUAMOUS EPITHELIAL (BEAKER) (test edrr=633) < /HPF SOURCE(BEAKER) (test ehvn=9567) POCT-GLUCOSE [id number] 09:00:00 Test Item Value Reference Range Comments POC-GLUCOSE METER (BEAKER) 138 mg/dL 70-110 TESTED AT [address] (test ggqc=8971) [place] [address] [id number] 07:36:00 Test Item Value Reference Range Comments PHOSPHORUS (BEAKER) (test nysz=764) 3.2 mg/dL 2.3-4.7 [id number] 07:36:00 Test Item Value Reference Range Comments MAGNESIUM (BEAKER) (test dufc=606) 1.6 mg/dL 1.6-2.6 BASIC METABOLIC [id number] 07:36:00 Test Item Value Reference Range Comments SODIUM (BEAKER) (test 139 meq/L 136-145 tcgr=076) POTASSIUM (BEAKER) (test 3.8 meq/L 3.5-5.1 bgkh=626) CHLORIDE (BEAKER) (test 113 meq/L 98-107 ecwb=199) CO2 (BEAKER) (test 23 meq/L 22-29 tini=489) BLOOD UREA NITROGEN 27 mg/dL 7-21 (BEAKER) (test kbns=472) CREATININE (BEAKER) (test 0.63 mg/dL 0.57-1.25 yrhl=904) GLUCOSE RANDOM (BEAKER) 119 mg/dL 70-105 (test euoc=743) CALCIUM (BEAKER) (test 8.0 mg/dL 8.4-10.2 rahy=122) EGFR (BEAKER) (test 134 mL/min/1.73 sq m ESTIMATED GFR IS NOT zjoz=6627) ACCURATE CREATININE CLEARANCE IN PREDICTING GLOMERULAR FILTRATION RATE. ESTIMATED GFR IS NOT APPLICABLE FOR DIALYSIS PATIENTS. CBC (HEMOGRAM ONLY)2018-05-25 07:18:00 Test Item Value Reference Range Comments WHITE BLOOD CELL COUNT (BEAKER) (test ahdd=668) 27.2 K/ L 3.5-10.5 RED BLOOD CELL COUNT (BEAKER) (test mbsn=052) 3.64 M/ L 4.63-6.08 HEMOGLOBIN (BEAKER) (test uely=546) 8.4 GM/DL 13.7-17.5 HEMATOCRIT (BEAKER) (test pzey=535) 27.9 % 40.1-51.0 MEAN CORPUSCULAR VOLUME (BEAKER) (test nlhx=832) 76.6 fL 79.0-92.2 MEAN CORPUSCULAR HEMOGLOBIN (BEAKER) (test 23.1 pg 25.7-32.2 xabd=663) MEAN CORPUSCULAR HEMOGLOBIN CONC (BEAKER) (test 30.1 GM/DL 32.3-36.5 ewby=205) RED CELL DISTRIBUTION WIDTH (BEAKER) (test 25.1 % 11.6-14.4 ywgg=404) PLATELET COUNT (BEAKER) (test nktf=118) 376 K/CU MM 150-450 MEAN PLATELET VOLUME (BEAKER) (test dhdi=833) 9.5 fL 9.4-12.4 NUCLEATED RED BLOOD CELLS (BEAKER) (test 0 /100 WBC 0-0 uaze=494) LACTIC ACID, VENOUS, WHOLE [id number] 07:14:00 Test Item Value Reference Range Comments LACTATE BLOOD VENOUS (2) (BEAKER) (test 1.3 mmol/L 0.5-2.2 pisr=7346) POCT-GLUCOSE [id number] 01:51:00 Test Item Value Reference Range Comments POC-GLUCOSE METER (BEAKER) 139 mg/dL 70-[address] [facility] [address] [facility] (test qihw=7072) [facility] [address] CT, [id number] 19:11:00Please give PO contrast via NGTFINAL REPORT CLINICAL HISTORY: Leukocytosis, fever, recent abdominal surgery, concern for anastomotic leak FINDINGS: Multiple axial images of the abdomen and pelvis were performed after the uncomplicated administration of IV contrast. Oral contrast was given. This exam was performed according to our departmental dose-optimization program, which includes automated exposure control, adjustment of the mA and/or kV according to patient size and/or use of the iterative reconstruction technique. Comparison: 05/12/2018. Correlation is made with a CT of the chest dated 05/14/2018 Lower chest: Small bilateral pleural effusions, increased from previous. Significant bilateral dependent consolidations, left greater than right, possibly reflecting atelectasis but concerning for pneumonia. No pneumothorax. Visualized cardiac contours normal. Liver: No significant findings. Gallbladderand biliary tree: No significant findings. Spleen: No significant findings. Adrenal Glands: No significant findings. Kidneys and ureters: Punctate nonobstructing right kidney stones. Stomach and Duodenum: Enteric tube tip in the mid gastric lumen. Thickened gastric mucosal folds. Pancreas: No significant findings. Bowel: Ileocolic suture line in a loop of small bowel in the left mid abdomen related to right hemicolectomy. There is focal dilatation of the small bowel adjacent to the anastomosis. No evidence of obstruction. No pneumatosis intestinalis or free intraperitoneal air. There is amorphous increased density ascites in the adjacent nondependent left abdomen and a small amount of increased density material in the dependent portions of the abdomen in are mixed with ascites. This appearance isnonspecific but most likely reflects blood products, however, the less likely possibility of extraluminal enteric contrast intermixed with ascites is not definitively excluded. There is fluid density stool to the level of the rectum. A metallic clip is present in the rectum, probably place during colonoscopy. Appendix: Nonvisualized Bladder: No significant findings. Major vascular structures: No significant findings. Reproductive organs: No significant findings. Other: Moderate volume ascites, including amorphous high density in the left upper quadrant and left midabdomen and vague dependent high density in the lateral abdomen. Diffuse subcutaneous edema. Surgical charlene overlying the anteriorabdominal midline. Skeleton: No acute bony abnormality. IMPRESSION: Postsurgical changes of right hemicolectomy. There is a moderate volume of ascites with amorphous high density in the nondependent left abdomen and a small amount of dependent increased density. There is no free intraperitoneal air. The appearance is most suggestive of blood products. Extraluminal enteric contrast appears less likelybased on the nondependent position and amorphous morphology. There is no organized fluid collection to suggest drainable abscess. Fluid density stool to the level of the rectum suggesting diarrheal illness. Small bilateral pleural effusions and significant dependent consolidations, left greater than right, possibly reflecting atelectasis but concerning for pneumonia. Thickening of the gastric mucosalfolds , nonspecific and possibly related to fluid volume status. Gastritis is within the differentialdiagnosis. Signed: Naveen Angeles MDRort Verified Date/Time: 05/24/2018 19:11:29 Reading Location:[address] Reading Room POCT- GLUCOSE [id number] 14:28:00 Test Item Value Reference Range Comments POC-GLUCOSE METER (BEAKER) 148 mg/dL 70-110 TESTED AT [address] (test omye=7325) [facility] [address] RAD, CHEST, 1 VIEW, NON [id number] 12:29:00Reason for exam:->eval pneumoniaShould this be performed at the bedside?->YesFINAL REPORT AP chest HISTORY: Pneumonia. COMPARISON: 05/23/2018. IMPRESSION: Supportive lines unchanged. Stable cardiac silhouette. Perihilar opacities suggestive of mild edema.Small effusions. No pneumothorax. Signed: Jerry Franks MDReport Verified Date/Time: 05/24/2018 12:29:40 Reading Location: [address] Transitional Reading Room POCT-GLUCOSE [id number] 05:57:00 Test Item Value Reference Range Comments POC-GLUCOSE METER (BEAKER) 139 mg/dL 70-[address] [facility] [address] [facility] (test ainh=2686) [facility] [address] [id number] 05:01:00 Test Item Value Reference Range Comments PHOSPHORUS (BEAKER) (test jhbs=848) 2.4 mg/dL 2.3-4.7 [id number] 05:01:00 Test Item Value Reference Range Comments MAGNESIUM (BEAKER) (test qsin=784) 1.4 mg/dL 1.6-2.6 BASIC METABOLIC [id number] 05:01:00 Test Item Value Reference Range Comments SODIUM (BEAKER) (test 142 meq/L 136-145 tfew=838) POTASSIUM (BEAKER) (test 3.4 meq/L 3.5-5.1 duoi=888) CHLORIDE (BEAKER) (test 115 meq/L 98-107 pijc=696) CO2 (BEAKER) (test 22 meq/L 22-29 sjms=644) BLOOD UREA NITROGEN 19 mg/dL 7-21 (BEAKER) (test ajsf=030) CREATININE (BEAKER) (test 0.67 mg/dL 0.57-1.25 sljh=592) GLUCOSE RANDOM (BEAKER) 105 mg/dL 70-105 (test ozmj=511) CALCIUM (BEAKER) (test 8.1 mg/dL 8.4-10.2 iccb=235) EGFR (BEAKER) (test 125 mL/min/1.73 sq m ESTIMATED GFR IS NOT jzjy=1879) ACCURATE CREATININE CLEARANCE IN PREDICTING GLOMERULAR FILTRATION RATE. ESTIMATED GFR IS NOT APPLICABLE FOR DIALYSIS PATIENTS. CBC (HEMOGRAM ONLY)2018-05-24 04:46:00 Test Item Value Reference Range Comments WHITE BLOOD CELL COUNT (BEAKER) (test qnut=303) 21.1 K/ L 3.5-10.5 RED BLOOD CELL COUNT (BEAKER) (test zgue=252) 3.82 M/ L 4.63-6.08 HEMOGLOBIN (BEAKER) (test trnt=619) 8.7 GM/DL 13.7-17.5 HEMATOCRIT (BEAKER) (test jrng=348) 28.9 % 40.1-51.0 MEAN CORPUSCULAR VOLUME (BEAKER) (test jkze=853) 75.7 fL 79.0-92.2 MEAN CORPUSCULAR HEMOGLOBIN (BEAKER) (test 22.8 pg 25.7-32.2 uewf=902) MEAN CORPUSCULAR HEMOGLOBIN CONC (BEAKER) (test 30.1 GM/DL 32.3-36.5 zjqk=988) RED CELL DISTRIBUTION WIDTH (BEAKER) (test 24.3 % 11.6-14.4 mves=845) PLATELET COUNT (BEAKER) (test cqch=083) 278 K/CU MM 150-450 MEAN PLATELET VOLUME (BEAKER) (test ozxs=041) 9.4 fL 9.4-12.4 NUCLEATED RED BLOOD CELLS (BEAKER) (test 0 /100 WBC 0-0 gzey=682) POCT-GLUCOSE [id number] 04:34:00 Test Item Value Reference Range Comments POC-GLUCOSE METER (BEAKER) 131 mg/dL 70-[address] [facility] [address] [place] [address] (test rszx=5709) [facility] [address] LACTIC ACID, VENOUS, WHOLE [id number] 04:14:00 Test Item Value Reference Range Comments LACTATE BLOOD VENOUS (2) (BEAKER) (test 1.2 mmol/L 0.5-2.2 hjxy=3105) URINALYSIS W/ REFLEX URINE [id number] 14:45:00 Test Item Value Reference Range Comments COLOR (BEAKER) (test tiaa=474) Yellow CLARITY (BEAKER) (test rlbm=795) Clear SPECIFIC GRAVITY UA (BEAKER) (test trmd=532) 1.016 1.001-1.035 PH UA (BEAKER) (test nser=837) 6.0 5.0-8.0 PROTEIN UA (BEAKER) (test rpkr=988) 10 mg/dL Negative GLUCOSE UA (BEAKER) (test ixso=853) Negative Negative KETONES UA (BEAKER) (test gqop=513) Negative Negative BILIRUBIN UA (BEAKER) (test kdde=608) Negative Negative BLOOD UA (BEAKER) (test bren=231) Negative Negative NITRITE UA (BEAKER) (test fqhn=544) Negative Negative LEUKOCYTE ESTERASE UA (BEAKER) (test okhw=470) Trace Negative UROBILINOGEN UA (BEAKER) (test dnfw=833) 0.2 mg/dL 0.2-1.0 RBC UA (BEAKER) (test rogu=186) < /HPF WBC UA (BEAKER) (test ggfb=874) 24 /HPF BACTERIA (BEAKER) (test xgrs=798) Occasional MUCUS (BEAKER) (test fnmb=7191) Occasional HYALINE CASTS (BEAKER) (test ptev=463) 1 /LPF SOURCE(BEAKER) (test vuih=1168) LACTIC ACID, VENOUS, WHOLE [id number] 11:49:00 Test Item Value Reference Range Comments LACTATE BLOOD VENOUS (2) (BEAKER) (test 1.6 mmol/L 0.5-2.2 ovqm=2363) RAD, ABDOMEN/KUB, 1 VIEW [id number] 11:32:00Reason for exam:->evuation of ileusShould this be performed at the bedside?->YesFINAL REPORT Abdomen one view Comparison: 05/22/2018 Reason for exam: Evaluation of ileus Findings: Gaseous distention of large bowel appear grossly unchanged. A few loops of small bowel also appear mildly distended. No free air is identified. Feeding tube projects over the gastric fundal region. Signed: Antwan Riversaint [facility] Verified Date/Time: 05/23/2018 11:32:04 Reading Location: [facility] Radiology Reading Room CBC (HEMOGRAM ONLY)2018-05-23 06:16:00 Test Item Value Reference Range Comments WHITE BLOOD CELL COUNT (BEAKER) (test uwam=368) 7.2 K/ L 3.5-10.5 RED BLOOD CELL COUNT (BEAKER) (test leif=747) 4.18 M/ L 4.63-6.08 HEMOGLOBIN (BEAKER) (test pltf=131) 9.4 GM/DL 13.7-17.5 HEMATOCRIT (BEAKER) (test gvhu=351) 31.3 % 40.1-51.0 MEAN CORPUSCULAR VOLUME (BEAKER) (test cayf=505) 74.9 fL 79.0-92.2 MEAN CORPUSCULAR HEMOGLOBIN (BEAKER) (test 22.5 pg 25.7-32.2 welk=515) MEAN CORPUSCULAR HEMOGLOBIN CONC (BEAKER) (test 30.0 GM/DL 32.3-36.5 jkgi=733) RED CELL DISTRIBUTION WIDTH (BEAKER) (test 24.4 % 11.6-14.4 rjme=809) PLATELET COUNT (BEAKER) (test ygzy=348) 320 K/CU MM 150-450 MEAN PLATELET VOLUME (BEAKER) (test kftn=441) 9.4 fL 9.4-12.4 NUCLEATED RED BLOOD CELLS (BEAKER) (test 0 /100 WBC 0-0 jkvn=443) BASIC METABOLIC [id number] 06:00:00 Test Item Value Reference Range Comments SODIUM (BEAKER) (test 142 meq/L 136-145 kgua=699) POTASSIUM (BEAKER) (test 3.0 meq/L 3.5-5.1 llue=883) CHLORIDE (BEAKER) (test 114 meq/L 98-107 ifxj=557) CO2 (BEAKER) (test 21 meq/L 22-29 tdtm=741) BLOOD UREA NITROGEN 15 mg/dL 7-21 (BEAKER) (test rsnr=439) CREATININE (BEAKER) (test 0.70 mg/dL 0.57-1.25 buip=511) GLUCOSE RANDOM (BEAKER) 111 mg/dL 70-105 (test kfok=205) CALCIUM (BEAKER) (test 7.9 mg/dL 8.4-10.2 dipb=333) EGFR (BEAKER) (test 118 mL/min/1.73 sq m ESTIMATED GFR IS NOT scme=7221) ACCURATE CREATININE CLEARANCE IN PREDICTING GLOMERULAR FILTRATION RATE. ESTIMATED GFR IS NOT APPLICABLE FOR DIALYSIS PATIENTS. [id number] 05:49:00 Test Item Value Reference Range Comments PHOSPHORUS (BEAKER) (test pvfi=165) 2.0 mg/dL 2.3-4.7 [id number] 05:49:00 Test Item Value Reference Range Comments MAGNESIUM (BEAKER) (test gpys=482) 1.5 mg/dL 1.6-2.6 RAD, CHEST, 1 VIEW, NON [id number] 03:29:00Reason for exam:->SOBShould this be performed at the bedside?->YesFINAL REPORT CLINICAL INDICATION: Shortness of breath Comparison: 05/21/2018and 1921 hours A single view of the chest is submitted. The patient is rotated to the left. The cardiomediastinal contours are stable. Central pulmonary vascular congestion and bilateral parenchymal and left pleural opacities are similar to previous and may reflect a combination of pulmonary edema andatelectasis. Pneumonitis should be excluded clinically. There is no pneumothorax. Support lines are stable. Signed: Naveen Angeles MDReport Verified Date/Time: 05/23/2018 03:29:03 Reading Location: [address] Reading Room POCT-LACTIC ACID, [id number] 03:20:00 Test Item Value Reference Range Comments POC-LACTIC ACID, ARTERIAL 2.3 mmol/L 0.4-1.3 TESTED AT [address] [facility] (test iofs=0359[facility] [address] POCT-BLOOD GASES, [id number] 03:20:00 Test Item Value Reference Range Comments TEMP, CELSIUS-POC (BEAKER) 38.3 (test izce=1801) FIO2-POC (BEAKER) (test 41 TESTED AT [address] ozsa=7665) [place] [id number] PH, ARTERIAL-POC (BEAKER) 7.466 7.350-7.450 (test kxxs=9746) PCO2, ARTERIAL-POC (BEAKER) 24.2 mm Hg 35.0-45.0 (test gaaw=5087) PO2, ARTERIAL-POC (BEAKER) 58.0 mm Hg 80.0-90.0 (test prla=7941) SO2, ARTERIAL-POC (BEAKER) 91.0 % 96.0-97.0 (test ojip=4166) HCO3, ARTERIAL-POC (BEAKER) 17.2 meq/L 21.0-29.0 (test ogwp=9940) BASE EXCESS, ARTERIAL-POC -6.0 meq/L -2.0-3.0 (BEAKER) (test hizn=3357) [id number] 03:20:00 Test Item Value Reference Range Comments POC-SODIUM (BEAKER) (test 141 meq/L 135-148 TESTED AT [address] dkuv=9595) [place] [address] [id number] 03:20:00 Test Item Value Reference Range Comments POC-POTASSIUM (BEAKER) (test 3.2 meq/L 3.6-5.5 TESTED AT [address] dotx=2803) [place] [address] [id number] 03:20:00 Test Item Value Reference Range Comments POC-GLUCOSE (BEAKER) (test 115 mg/dL 70-110 TESTED AT [address] tahk=2098) [place] [address] POCT-CALCIUM [id number] 03:20:00 Test Item Value Reference Range Comments POC-CALCIUM IONIZED (BEAKER) 1.18 mmol/L 1.12-1.27 TESTED AT [address] (test tbvu=1285) [place] [address] [id number] 03:20:00 Test Item Value Reference Range Comments POC-HEMATOCRIT (BEAKER) (test 29 % 40-50 TESTED AT [address] yvsz=9443) [place] [address] [id number] 03:20:00 Test Item Value Reference Range Comments POC-HEMOGLOBIN (BEAKER) 9.9 g/dL 13.0-16.8 TESTED AT [address] (test qdty=6181) [place] [address]TESTED AT [place] [address] BLOOD [id number] 19:01:00 Test Item Value Reference Range Comments CULTURE (BEAKER) (test rqtj=5196) No growth in 5 days BLOOD [id number] 19:01:00 Test Item Value Reference Range Comments CULTURE (BEAKER) (test iqwq=4221) No growth in 5 days BASIC METABOLIC [id number] 18:20:00 Test Item Value Reference Range Comments SODIUM (BEAKER) (test 138 meq/L 136-145 pntp=684) POTASSIUM (BEAKER) (test 3.9 meq/L 3.5-5.1 zyws=994) CHLORIDE (BEAKER) (test 110 meq/L 98-107 dodm=299) CO2 (BEAKER) (test 23 meq/L 22-29 trqp=381) BLOOD UREA NITROGEN 15 mg/dL 7-21 (BEAKER) (test vbkl=557) CREATININE (BEAKER) (test 0.71 mg/dL 0.57-1.25 rczv=275) GLUCOSE RANDOM (BEAKER) 328 mg/dL 70-105 (test ophd=933) CALCIUM (BEAKER) (test 7.4 mg/dL 8.4-10.2 yipy=279) EGFR (BEAKER) (test 117 mL/min/1.73 sq m ESTIMATED GFR IS NOT jecz=3882) ACCURATE CREATININE CLEARANCE IN PREDICTING GLOMERULAR FILTRATION RATE. ESTIMATED GFR IS NOT APPLICABLE FOR DIALYSIS PATIENTS. [id number] 18:15:00 Test Item Value Reference Range Comments PHOSPHORUS (BEAKER) (test lvbi=729) 4.1 mg/dL 2.3-4.7 [id number] 18:15:00 Test Item Value Reference Range Comments MAGNESIUM (BEAKER) (test ncpf=096) 2.5 mg/dL 1.6-2.6 RAD, ABDOMEN/KUB, 1 VIEW [id number] 05:02:00Reason for exam:->IleusShould this be performed at the bedside?->YesFINAL REPORT CLINICAL HISTORY: Ileus TECHNIQUE: RAD, ABDOMEN/KUB, 1 VIEW AP COMPARISON: Radiograph the abdomen dated 05/21/2018. Impression: Unchanged gas-filled distended loops of large bowel within the left abdomen. Surgical chain sutures in the left upper quadrant. Unchanged appearance of the gastric decompression tube overlying the gastric fundus. Surgical skin charlene overlie the mid abdomen.No radiopaque urinary tract calculi. Normal osseous structures. Signed : Stephanie Tucker MDReport Verified Date/Time: 05/22/2018 05:02:06 Reading Location: [address] Reading Room BASIC METABOLIC [id number] 04:54:00 Test Item Value Reference Range Comments SODIUM (BEAKER) (test 143 meq/L 136-145 xrxa=507) POTASSIUM (BEAKER) (test 3.1 meq/L 3.5-5.1 teka=369) CHLORIDE (BEAKER) (test 114 meq/L 98-107 lyys=873) CO2 (BEAKER) (test 23 meq/L 22-29 ajcn=933) BLOOD UREA NITROGEN 17 mg/dL 7-21 (BEAKER) (test axdb=642) CREATININE (BEAKER) (test 0.66 mg/dL 0.57-1.25 cqsz=219) GLUCOSE RANDOM (BEAKER) 115 mg/dL 70-105 (test plxu=218) CALCIUM (BEAKER) (test 7.8 mg/dL 8.4-10.2 knnq=219) EGFR (BEAKER) (test 127 mL/min/1.73 sq m ESTIMATED GFR IS NOT nrta=6142) ACCURATE CREATININE CLEARANCE IN PREDICTING GLOMERULAR FILTRATION RATE. ESTIMATED GFR IS NOT APPLICABLE FOR DIALYSIS PATIENTS. [id number] 04:53:00 Test Item Value Reference Range Comments TRIGLYCERIDES (BEAKER) (test dijz=274) 100 mg/dL TRIGLYCERIDE REFERENCE RANGELow Risk <150Borderline Risk 150-199High Risk 200-499Very High Risk>=[id number] 04:53:00 Test Item Value Reference Range Comments MAGNESIUM (BEAKER) (test ciea=418) 1.3 mg/dL 1.6-2.6 [id number] 04:53:00 Test Item Value Reference Range Comments PHOSPHORUS (BEAKER) (test tgtj=215) 1.7 mg/dL 2.3-4.7 CBC (HEMOGRAM ONLY)2018-05-22 04:44:00 Test Item Value Reference Range Comments WHITE BLOOD CELL COUNT (BEAKER) (test kfwx=870) 8.0 K/ L 3.5-10.5 RED BLOOD CELL COUNT (BEAKER) (test ueyy=472) 3.41 M/ L 4.63-6.08 HEMOGLOBIN (BEAKER) (test nekd=282) 7.9 GM/DL 13.7-17.5 HEMATOCRIT (BEAKER) (test tism=363) 25.9 % 40.1-51.0 MEAN CORPUSCULAR VOLUME (BEAKER) (test czvm=866) 76.0 fL 79.0-92.2 MEAN CORPUSCULAR HEMOGLOBIN (BEAKER) (test 23.2 pg 25.7-32.2 xquq=838) MEAN CORPUSCULAR HEMOGLOBIN CONC (BEAKER) (test 30.5 GM/DL 32.3-36.5 dxie=540) RED CELL DISTRIBUTION WIDTH (BEAKER) (test 24.0 % 11.6-14.4 tzau=457) PLATELET COUNT (BEAKER) (test ufgt=127) 282 K/CU MM 150-450 MEAN PLATELET VOLUME (BEAKER) (test vppe=359) 9.5 fL 9.4-12.4 NUCLEATED RED BLOOD CELLS (BEAKER) (test 0 /100 WBC 0-0 hafy=456) LACTIC ACID, VENOUS, WHOLE [id number] 04:21:00 Test Item Value Reference Range Comments LACTATE BLOOD VENOUS (2) (BEAKER) (test 1.6 mmol/L 0.5-2.2 qfpj=4866) RAD, CHEST, 1 VIEW, NON [id number] 19:53:00Reason for exam:->check picc placement Should this be performed at the bedside?->YesFINAL REPORT CLINICAL INDICATION: PICC line placement Comparison: Same [id number] hours A right-sided PICC line tip overlies the cavoatrial junction. The cardiomediastinal contours are stable. There is been mild interval worsening in central pulmonary vascular prominence and bilateral interstitial and airspace opacities, centered on the perihilar lungs. The appearance is nonspecific and may reflect some comminution of atelectasis and edema. Pneumonitis should be excluded clinically. There is no pneumothorax. An enteric tube remains in place. Signed: Naveen Angeles MDReport Verified Date/Time: 05/21 19:53:05 Reading Location: [address] Reading Room TISSUE [id number] 16:25:00Surgical Pathology Report Case: [id number] Authorizing Provider: Jose Luis Rubin MD Collected: 05/15/2018 1816 Ordering Location: [facility] Received: 05/16/2018 0841 SERVICES Pathologist: Cyril Chow MD Specimen: Large Intestine, NOS, EXTENDED RIGHT HEMICOLECTOMY A. COLON, NOT OTHERWISE SPECIFIED, EXTENDED RIGHT HEMICOLECTOMY: - INVASIVE ADENOCARCINOMA, MODERATELY DIFFERENTIATED, INVOLVING HEPATIC FLEXURE - TUMOR MEASURES 2.3 CM IN GREATEST DIMENSION - TUMOR INVADES THROUGH MUSCULARIS PROPRIA INTO THE PADMINI COLORECTAL TISSUE - MARGINS, NEGATIVE FOR MALIGNANCY - LYMPHOVASCULAR INVASION IS PRESENT - NO DEFINITE PERINEURAL INVASION IS IDENTIFIED - ONE TUMOR DEPOSIT - TWENTY-NINE LYMPH NODES NEGATIVE FOR METASTATIC CARCINOMA (0/29 ) - PATHOLOGIC STAGE CLASSIFICATION [id number] - APPENDIX WITH FIBROUS OBLITERATION - UNREMARKABLE ILEUM Signing Pathologist Direct Phone Line: [phone] signed by Cyril Chow MD on 05/21/2018 at 4:25 PMMMR immunohistochemistry was performed on the biopsy sample ([id number]) which shows the tumor to be MSI stable.COLON AND RECTUM: Resection, Including Transanal Disk Excision of Rectal Neoplasms (Colon Res - All Specimens) SPECIMEN Procedure: extended right hemicolectomy TUMOR Tumor Site: Hepatic flexure Histologic Type: Adenocarcinoma Histologic Grade: G2 : Moderately differentiated Tumor Size: Greatest dimension in Centimeters (cm): 2.3 Centimeters (cm) Additional Dimension in Centimeters (cm): 1.9 Centimeters (cm) Additional Dimension in Centimeters (cm): 1.3 Centimeters (cm) Tumor Deposits: Present Number of Deposits: 1 Tumor Extent : Tumor Extension: Tumor invades through the muscularis propria into pericolorectal tissue Macroscopic Tumor Perforation: Not identified Accessory Findings: Lymphovascular Invasion: Present : Small vessel lymphovascular invasion Perineural Invasion: Not identified Treatment Effect: No known presurgical therapy MARGINS Margins: All margins are uninvolved by invasive carcinoma, high-grade dysplasia, intramucosal adenocarcinoma, and adenoma Margins Examined: Proximal Margins Examined: Distal Margins Examined: Radial orMesenteric LYMPH NODES Number of Lymph Nodes Involved: 0 Number of Lymph Nodes Examined: 29 PATHOLOGIC STAGE CLASSIFICATION (pTNM, AJCC 8th Edition) TNM Descriptors: Not applicable Primary Tumor (pT): pT3 Regional Lymph Nodes (pN): pN1c [id number] neoplasm of colonExtended right hemicolectomyThe specimen is received in a formalin-filled container and labeled with the patient's information labeled "extended right hemicolectomy" and consists of right hemicolectomy measuring 53 cm in length x 8 cm in circumference with terminal ileum measuring 13 cm in length x 4 cm in circumference and appendix measuring 5.2 cm in length x 0.6 cm in diameter. The colon has thin attached pericolonic fat measuring up to 1.5 cm. The colon is opened longitudinally to reveal [...] nodes; A14, three lymph nodes. CG /pl Performed.RAD, ABDOMEN/KUB, 1 VIEW [id number] 10:49:00Reason for exam:-&gt ;ileus, resolved?FINAL REPORT RAD, ABDOMEN/KUB, 1 VIEW AP CLINICAL INDICATION: ileus, resolved? COMPARISON: May 20, 2018 TECHNIQUE: Single, frontal radiograph of the abdomen. IMPRESSION: No significant interval change in the appearance of multifocal gaseous distention of small and large bowel loops. A nasogastric tube is well-positioned. There is no pneumatosis. The skeletal structures are unremarkable. Signed: JR Hernandez Robert MDReport Verified Date/Time: 05/21/2018 10:49:48 Reading Location: [facility] Radiology Reading Room RAD, CHEST, 1 VIEW, NON [id number] 06:32: 00Reason for exam:->aspiration pneumoniaShould this be performed at the bedside?->YesFINAL REPORT RAD, CHEST, 1 VIEW, NON DEPT INDICATION: aspiration pneumonia COMPARISON: Prior day's exam FINDINGS: Portable frontal view of the chest. IMPRESSION: Support Lines: NG tube is unchanged Lungs and pleura: No significant interval change in left pleural effusion and bibasilar atelectasis. Superimposed infection may BE excluded clinically. No pneumothorax.Heart and mediastinum: Stable contours. Additional findings: None. Signed: Torie Gutierrez MDReport Verified Date/Time: 2017 06:32:30 Reading Location: [address] Neuro Reading Room Electronically signedby: TORIE GUTIERREZ MD on 05/21/2018 06:32 [id number] 04:20:00 Test Item Value Reference Range Comments PHOSPHORUS (BEAKER) (test pgmf=390) 2.0 mg/dL 2.3-4.7 [id number] 04:20:00 Test Item Value Reference Range Comments MAGNESIUM (BEAKER) (test vibh=807) 1.3 mg/dL 1.6-2.6 BASIC METABOLIC [id number] 04:20:00 Test Item Value Reference Range Comments SODIUM (BEAKER) (test 143 meq/L 136-145 ufzy=318) POTASSIUM (BEAKER) (test 3.2 meq/L 3.5-5.1 qolp=505) CHLORIDE (BEAKER) (test 114 meq/L 98-107 pixf=284) CO2 (BEAKER) (test 25 meq/L 22-29 xjld=134) BLOOD UREA NITROGEN 31 mg/dL 7-21 (BEAKER) (test nnyf=056) CREATININE (BEAKER) (test 0.67 mg/dL 0.57-1.25 fckl=868) GLUCOSE RANDOM (BEAKER) 103 mg/dL 70-105 (test chwh=177) CALCIUM (BEAKER) (test 8.5 mg/dL 8.4-10.2 cnlg=471) EGFR (BEAKER) (test 125 mL/min/1.73 sq m ESTIMATED GFR IS NOT tben=4368) ACCURATE CREATININE CLEARANCE IN PREDICTING GLOMERULAR FILTRATION RATE. ESTIMATED GFR IS NOT APPLICABLE FOR DIALYSIS PATIENTS. PROTHROMBIN TIME/[id number] 04:18:00 Test Item Value Reference Range Comments PROTIME (BEAKER) (test krzx=059) 14.1 seconds 11.7-14.7 INR (BEAKER) (test hevz=975) 1.1 <=5.9 RECOMMENDED COUMADIN/WARFARIN INR THERAPY RANGESSTANDARD DOSE: 2.0 - 3.0 Includes: PROPHYLAXIS forvenous thrombosis, systemic embolization; TREATMENT for venous thrombosis and/or pulmonary embolus.HIGH RISK: Target INR is 2.5-3.5 for patients with mechanical heart valves.LACTIC ACID, VENOUS, WHOLE [id number] 04:07:00 Test Item Value Reference Range Comments LACTATE BLOOD VENOUS (2) (BEAKER) (test 1.3 mmol/L 0.5-2.2 nsjb=7521) CBC (HEMOGRAM ONLY)2018-05-21 04:06:00 Test Item Value Reference Range Comments WHITE BLOOD CELL COUNT (BEAKER) (test jnjo=390) 8.8 K/ L 3.5-10.5 RED BLOOD CELL COUNT (BEAKER) (test rakh=137) 3.54 M/ L 4.63-6.08 HEMOGLOBIN (BEAKER) (test fobs=075) 8.3 GM/DL 13.7-17.5 HEMATOCRIT (BEAKER) (test jvcz=883) 27.0 % 40.1-51.0 MEAN CORPUSCULAR VOLUME (BEAKER) (test nmfe=661) 76.3 fL 79.0-92.2 MEAN CORPUSCULAR HEMOGLOBIN (BEAKER) (test 23.4 pg 25.7-32.2 vjkz=906) MEAN CORPUSCULAR HEMOGLOBIN CONC (BEAKER) (test 30.7 GM/DL 32.3-36.5 jggt=712) RED CELL DISTRIBUTION WIDTH (BEAKER) (test 24.2 % 11.6-14.4 bmsu=825) PLATELET COUNT (BEAKER) (test xmzd=079) 250 K/CU MM 150-450 MEAN PLATELET VOLUME (BEAKER) (test ohhv=905) 9.3 fL 9.4-12.4 NUCLEATED RED BLOOD CELLS (BEAKER) (test 0 /100 WBC 0-0 cbjx=161) RAD, ABDOMEN/KUB, 1 VIEW [id number] 14:42:00Include stomach \\T\\ rectumReason for exam:->abd distentionShould this be performed at the bedside?-> YesFINAL REPORT Abdomen. HISTORY: Abdominal distention. Comparison study: May 19, 2018. FINDINGS: Two supine views of the abdomen demonstrate gas-filled loops of large and small bowel. Small bowel loops measure up to 3.9 cm. Midline laparotomy charlene are seen. This film is insensitive for the detection of free air. IMPRESSION: Air-filled loops of bowel , similar to previous with some dilated small bowel loops. The findings are most adjustable ileus or partial obstruction. Signed: Raoul Portillo Verified Date/Time: 05/20/2018 14:42:52 Reading Location: [address] Ortho Consult Reading Room Electronically signed by: RAOUL PORTILLO M.D. on 02:42 PMRAD, CHEST, 1 VIEW, NON [id number] 07:44:00Reason for exam:- >aspiration pneumoniaShould this be performed at the bedside?->YesFINAL REPORT Chest one view AP 05/20/2018 7:43 AM CLINICAL INDICATION: aspiration pneumonia COMPARISON: 05/19/2018 IMPRESSION: Opacity in the left lower lobe is concerning for aspiration pneumonitis. There is a suspected trace left pleural effusion. The right lung is well aerated. Cardiomediastinal contours are stable. The central pulmonary vasculature is not engorged. Signed: Ernesto Kelly Verified Date/Time: 05/20/2018 07:44 :06 Reading Location: [place] [id number] Neuro Reading Room LACTIC ACID, VENOUS, WHOLE [id number] 05:44:00 Test Item Value Reference Range Comments LACTATE BLOOD VENOUS (2) (BEAKER) (test 1.2 mmol/L 0.5-2.2 xfgc=5601) [id number] 05:38:00 Test Item Value Reference Range Comments PHOSPHORUS (BEAKER) (test zffg=912) 2.4 mg/dL 2.3-4.7 [id number] 05:38:00 Test Item Value Reference Range Comments MAGNESIUM (BEAKER) (test vqwy=982) 2.0 mg/dL 1.6-2.6 BASIC METABOLIC [id number] 05:38:00 Test Item Value Reference Range Comments SODIUM (BEAKER) (test 142 meq/L 136-145 mldv=897) POTASSIUM (BEAKER) (test 3.6 meq/L 3.5-5.1 jbfy=450) CHLORIDE (BEAKER) (test 112 meq/L 98-107 dxha=847) CO2 (BEAKER) (test 24 meq/L 22-29 bosq=116) BLOOD UREA NITROGEN 40 mg/dL 7-21 (BEAKER) (test kwvt=094) CREATININE (BEAKER) (test 0.85 mg/dL 0.57-1.25 zdjr=120) GLUCOSE RANDOM (BEAKER) 82 mg/dL 70-105 (test bltd=589) CALCIUM (BEAKER) (test 8.8 mg/dL 8.4-10.2 dwzs=702) EGFR (BEAKER) (test 95 mL/min/1.73 sq m ESTIMATED GFR IS NOT gxve=2112) ACCURATE CREATININE CLEARANCE IN PREDICTING GLOMERULAR FILTRATION RATE. ESTIMATED GFR IS NOT APPLICABLE FOR DIALYSIS PATIENTS. PROTHROMBIN TIME/[id number] 05:35:00 Test Item Value Reference Range Comments PROTIME (BEAKER) (test cbqy=098) 13.4 seconds 11.7-14.7 INR (BEAKER) (test nhgk=152) 1.0 <=5.9 RECOMMENDED COUMADIN/WARFARIN INR THERAPY RANGESSTANDARD DOSE: 2.0 - 3.0 Includes: PROPHYLAXIS forvenous thrombosis, systemic embolization; TREATMENT for venous thrombosis and/or pulmonary embolus.HIGH RISK: Target INR is 2.5-3.5 for patients with mechanical heart valves.CBC (HEMOGRAM ONLY)2018-05-20 05:30:00 Test Item Value Reference Range Comments WHITE BLOOD CELL COUNT (BEAKER) (test nqrc=026) 17.3 K/ L 3.5-10.5 RED BLOOD CELL COUNT (BEAKER) (test evoz=131) 4.43 M/ L 4.63-6.08 HEMOGLOBIN (BEAKER) (test sjpn=310) 10.2 GM/DL 13.7-17.5 HEMATOCRIT (BEAKER) (test ftev=743) 34.1 % 40.1-51.0 MEAN CORPUSCULAR VOLUME (BEAKER) (test mwaz=391) 77.0 fL 79.0-92.2 MEAN CORPUSCULAR HEMOGLOBIN (BEAKER) (test 23.0 pg 25.7-32.2 yzmd=637) MEAN CORPUSCULAR HEMOGLOBIN CONC (BEAKER) (test 29.9 GM/DL 32.3-36.5 tmhe=166) RED CELL DISTRIBUTION WIDTH (BEAKER) (test 24.3 % 11.6-14.4 iobs=726) PLATELET COUNT (BEAKER) (test iomw=081) 311 K/CU MM 150-450 MEAN PLATELET VOLUME (BEAKER) (test qebr=033) 9.5 fL 9.4-12.4 NUCLEATED RED BLOOD CELLS (BEAKER) (test 0 /100 WBC 0-0 pkkg=021) RAD, ABDOMEN/KUB, 1 VIEW [id number] 11:04:00Reason for exam:->ileusFINAL REPORT RAD, ABDOMEN/KUB, 1 VIEW AP CLINICAL INDICATION: ileus COMPARISON: May 18, 2018 TECHNIQUE: Two frontal radiographs of the abdomen. IMPRESSION: Limited by technical artifacts. The bowel gas pattern reveals persistent gaseous distention in the distal bowel. There is no discernible pneumatosis. The enteric tube has been removed. No significant calcifications are present. The regional skeleton is intact. Signed: JR Hernandez Robert MDReport Verified Date/Time: 05/19/2018 11:04:30 Reading Location: [facility] Reading Room RAD, CHEST, 1 VIEW, NON [id number] 07:23:00Reason for exam:->aspiration pneumoniaShould this be performed at the bedside?->YesFINAL REPORT RAD, CHEST , 1 VIEW, NON DEPT INDICATION: aspiration pneumonia COMPARISON: Prior day's exam FINDINGS: Portable frontal view of the chest. IMPRESSION: Support Lines : None. Lungs and pleura: Basilar consolidative changes are slightly improved since the prior day. Nopneumothorax.Heart and mediastinum: Stable contours. Additional findings: None. Signed: JR Hernandez Robert MDReport Verified Date/Time: 05/19/2018 07:23:32 Reading Location: [facility] Reading Room POCT-GLUCOSE [id number] 05:29:00 Test Item Value Reference Range Comments POC-GLUCOSE METER (BEAKER) 78 mg/dL 70-[address] [facility] [address] (test dngf=2188) [place] [address] [id number] 05:07:00 Test Item Value Reference Range Comments PHOSPHORUS (BEAKER) (test htwc=850) 2.5 mg/dL 2.3-4.7 [id number] 05:07:00 Test Item Value Reference Range Comments MAGNESIUM (BEAKER) (test cdkr=340) 1.4 mg/dL 1.6-2.6 BASIC METABOLIC [id number] 05:07:00 Test Item Value Reference Range Comments SODIUM (BEAKER) (test 141 meq/L 136-145 awjw=726) POTASSIUM (BEAKER) (test 3.8 meq/L 3.5-5.1 vgic=720) CHLORIDE (BEAKER) (test 113 meq/L 98-107 msgh=454) CO2 (BEAKER) (test 22 meq/L 22-29 jkqw=091) BLOOD UREA NITROGEN 30 mg/dL 7-21 (BEAKER) (test khdc=952) CREATININE (BEAKER) (test 0.80 mg/dL 0.57-1.25 cwja=832) GLUCOSE RANDOM (BEAKER) 67 mg/dL 70-105 (test tzap=287) CALCIUM (BEAKER) (test 9.2 mg/dL 8.4-10.2 qucm=252) EGFR (BEAKER) (test 102 mL/min/1.73 sq m ESTIMATED GFR IS NOT cvlx=9648) ACCURATE CREATININE CLEARANCE IN PREDICTING GLOMERULAR FILTRATION RATE. ESTIMATED GFR IS NOT APPLICABLE FOR DIALYSIS PATIENTS. PROTHROMBIN TIME/[id number] 04:39:00 Test Item Value Reference Range Comments PROTIME (BEAKER) (test dgfw=250) 14.2 seconds 11.7-14.7 INR (BEAKER) (test skeb=220) 1.1 <=5.9 RECOMMENDED COUMADIN/WARFARIN INR THERAPY RANGESSTANDARD DOSE: 2.0 - 3.0 Includes: PROPHYLAXIS forvenous thrombosis, systemic embolization; TREATMENT for venous thrombosis and/or pulmonary embolus.HIGH RISK: Target INR is 2.5-3.5 for patients with mechanical heart valves.LACTIC ACID, VENOUS, WHOLE [id number] 04:29:00 Test Item Value Reference Range Comments LACTATE BLOOD VENOUS (2) (BEAKER) (test 1.3 mmol/L 0.5-2.2 htli=7473) CBC (HEMOGRAM ONLY)2018-05-19 04:12:00 Test Item Value Reference Range Comments WHITE BLOOD CELL COUNT (BEAKER) (test ngto=430) 11.3 K/ L 3.5-10.5 RED BLOOD CELL COUNT (BEAKER) (test bqdd=682) 4.22 M/ L 4.63-6.08 HEMOGLOBIN (BEAKER) (test iarc=493) 9.6 GM/DL 13.7-17.5 HEMATOCRIT (BEAKER) (test fure=617) 33.4 % 40.1-51.0 MEAN CORPUSCULAR VOLUME (BEAKER) (test wumx=100) 79.1 fL 79.0-92.2 MEAN CORPUSCULAR HEMOGLOBIN (BEAKER) (test 22.7 pg 25.7-32.2 kxsw=884) MEAN CORPUSCULAR HEMOGLOBIN CONC (BEAKER) (test 28.7 GM/DL 32.3-36.5 svng=684) RED CELL DISTRIBUTION WIDTH (BEAKER) (test 23.9 % 11.6-14.4 qchz=589) PLATELET COUNT (BEAKER) (test xpeq=768) 280 K/CU MM 150-450 MEAN PLATELET VOLUME (BEAKER) (test zvyb=475) 9.5 fL 9.4-12.4 NUCLEATED RED BLOOD CELLS (BEAKER) (test 0 /100 WBC 0-0 seew=906) CBC (HEMOGRAM ONLY)2018-05-18 08:15:00 Test Item Value Reference Range Comments WHITE BLOOD CELL COUNT (BEAKER) (test rzrn=309) 6.4 K/ L 3.5-10.5 RED BLOOD CELL COUNT (BEAKER) (test pjhq=164) 4.37 M/ L 4.63-6.08 HEMOGLOBIN (BEAKER) (test koqh=959) 10.2 GM/DL 13.7-17.5 HEMATOCRIT (BEAKER) (test jmoi=059) 34.1 % 40.1-51.0 MEAN CORPUSCULAR VOLUME (BEAKER) (test dmzm=126) 78.0 fL 79.0-92.2 MEAN CORPUSCULAR HEMOGLOBIN (BEAKER) (test 23.3 pg 25.7-32.2 hnpw=677) MEAN CORPUSCULAR HEMOGLOBIN CONC (BEAKER) (test 29.9 GM/DL 32.3-36.5 kiea=477) RED CELL DISTRIBUTION WIDTH (BEAKER) (test 23.4 % 11.6-14.4 vtow=909) PLATELET COUNT (BEAKER) (test gntj=738) 283 K/CU MM 150-450 MEAN PLATELET VOLUME (BEAKER) (test wawc=379) 9.9 fL 9.4-12.4 NUCLEATED RED BLOOD CELLS (BEAKER) (test 0 /100 WBC 0-0 lmdm=253) RAD, ABDOMEN/KUB, 1 VIEW [id number] 07:27:00Reason for exam:->high NGT outputFINAL REPORT Abdomen one view supine 05/18/2018 7: 26 AM CLINICAL INDICATION: high NGT output COMPARISON: None available IMPRESSION : There is mild/moderate ileus. The side port ofan enteric tube projects over the gastric body. No abnormal calcifications are seen in the region ofthe gallbladder or kidneys. The lung bases are well aerated. There are no acute- appearing skeletal abnormalities.. Signed: Ernesto Kelly Verified Date/Time: 05/18/2018 07:27:21 Reading Location: [address] Neuro Reading Room RAD, CHEST, 1 VIEW, NON [id number] 07:02:00Reason for exam:-> aspiration pneumoniaShould this be performed at the bedside?->YesFINAL REPORT RAD, CHEST, 1 VIEW, NON DEPT INDICATION: aspiration pneumonia COMPARISON: Prior day's exam FINDINGS: Portable frontal view of the chest. IMPRESSION: Support Lines: Interval placement of NG tube which terminates in the stomach. Lungs and pleura: Bilateral airspaceopacities, left greater than right, increased from prior exam. No pneumothorax.Heart and mediastinum: Stable contours. Stable surgical changes.Additional findings: None. Signed: Torie Gutierrez MDReport Verified Date/Time: 05/18/2018 07:02:25 Reading Location: [facility] [id number] Neuro Reading Room LACTIC ACID, VENOUS, WHOLE [id number] 03:14:00 Test Item Value Reference Range Comments LACTATE BLOOD VENOUS (2) 1.7 mmol/L 0.5-2.2 Specimen slightly hemolyzed (BEAKER) (test jkhv=9943) [id number] 02:47:00 Test Item Value Reference Range Comments PHOSPHORUS (BEAKER) (test 2.9 mg/dL 2.3-4.7 Specimen slightly hemolyzed jnqy=152) PROTHROMBIN TIME/[id number] 02:25:00 Test Item Value Reference Range Comments PROTIME (BEAKER) (test yqed=738) 15.2 seconds 11.7-14.7 INR (BEAKER) (test axgd=714) 1.2 <=5.9 RECOMMENDED COUMADIN/WARFARIN INR THERAPY RANGESSTANDARD DOSE: 2.0 - 3.0 Includes: PROPHYLAXIS forvenous thrombosis, systemic embolization; TREATMENT for venous thrombosis and/or pulmonary embolus.HIGH RISK: Target INR is 2.5-3.5 for patients with mechanical heart valves.CBC W/PLT COUNT & AUTO [id number] 17:41:00 Test Item Value Reference Range Comments WHITE BLOOD CELL COUNT (BEAKER) (test veib=839) 3.9 K/ L 3.5-10.5 RED BLOOD CELL COUNT (BEAKER) (test mmgm=398) 5.05 M/ L 4.63-6.08 HEMOGLOBIN (BEAKER) (test fafv=893) 11.5 GM/DL 13.7-17.5 HEMATOCRIT (BEAKER) (test ssvk=248) 40.8 % 40.1-51.0 MEAN CORPUSCULAR VOLUME (BEAKER) (test hdjv=652) 80.8 fL 79.0-92.2 MEAN CORPUSCULAR HEMOGLOBIN (BEAKER) (test 22.8 pg 25.7-32.2 qmvb=368) MEAN CORPUSCULAR HEMOGLOBIN CONC (BEAKER) (test 28.2 GM/DL 32.3-36.5 zuba=925) RED CELL DISTRIBUTION WIDTH (BEAKER) (test 23.1 % 11.6-14.4 lnhe=123) PLATELET COUNT (BEAKER) (test qroq=979) 245 K/CU MM 150-450 MEAN PLATELET VOLUME (BEAKER) (test ahif=751) 8.7 fL 9.4-12.4 NUCLEATED RED BLOOD CELLS (BEAKER) (test 0 /100 WBC 0-0 qvfi=780) (CELLAVISION MANUAL DIFF)2018-05-17 17:41:00 Test Item Value Reference Range Comments NEUTROPHILS - REL (CELLAVISION)(BEAKER) (test 49 % zbca=4617) LYMPHOCYTES - REL (CELLAVISION)(BEAKER) (test 6 % tdih=6783) MONOCYTES - REL (CELLAVISION)(BEAKER) (test 3 % yjmx=3092) METAMYELOCYTES - REL (CELLAVISION)(BEAKER) (test 1 % 0-0 mgvz=3198) BANDS - REL (CELLAVISION)(BEAKER) (test 41 % 0-10 axoo=4503) NEUTROPHILS - ABS (CELLAVISION)(BEAKER) (test 1.91 K/ul 1.78-5.38 nnfr=6707) LYMPHOCYTES - ABS (CELLAVISION)(BEAKER) (test 0.23 K/ul 1.32-3.57 nxde=6350) MONOCYTES - ABS (CELLAVISION)(BEAKER) (test 0.12 K/uL 0.30-0.82 tnks=8523) METAMYELOCYTES - ABS (CELLAVISION)(BEAKER) (test 0.04 K/uL 0.00-0.00 sqlr=7489) BANDS - ABS (CELLAVISION)(BEAKER) (test 1.60 K/uL 0.00-0.80 mjqt=9863) TOTAL COUNTED (BEAKER) (test hbyp=8955) 100 MANUAL NRBC PER 100 CELLS (BEAKER) (test 1 /100 WBC 0-0 jtez=8302) WBC MORPHOLOGY (BEAKER) (test xqht=534) Normal GIANT PLATELETS (BEAKER) (test thev=694) Present ANISOCYTOSIS (BEAKER) (test orbz=401) 1+ few POIKILOCYTES (BEAKER) (test tpol=631) 2+ moderate SPHEROCYTES (BEAKER) (test woff=959) 1+ few ELLIPTOCYTES (BEAKER) (test usfy=001) 1+ few ARTIFACT (CELLAVISION)(BEAKER) (test noui=6125) Present PLATELET CONCENTRATION (CELLAVISION)(BEAKER) Adequate (test pcrf=0877) Received comment: User comments: Slide comments:[id number] 16:58:00 Test Item Value Reference Range Comments MAGNESIUM (BEAKER) (test 1.9 mg/dL 1.6-2.6 Specimen moderately hemolyzed eqgv=574) BASIC METABOLIC [id number] 16:58:00 Test Item Value Reference Range Comments SODIUM (BEAKER) (test 138 meq/L 136-145 dopu=434) POTASSIUM (BEAKER) (test 5.2 meq/L 3.5-5.1 Specimen moderately fpwa=776) hemolyzed CHLORIDE (BEAKER) (test 112 meq/L 98-107 ypku=789) CO2 (BEAKER) (test 21 meq/L 22-29 pobo=196) BLOOD UREA NITROGEN 14 mg/dL 7-21 (BEAKER) (test fzqv=514) CREATININE (BEAKER) (test 0.85 mg/dL 0.57-1.25 Specimen moderately jksr=721) hemolyzed GLUCOSE RANDOM (BEAKER) 121 mg/dL 70-105 (test pokt=103) CALCIUM (BEAKER) (test 9.1 mg/dL 8.4-10.2 quru=388) EGFR (BEAKER) (test 95 mL/min/1.73 sq m ESTIMATED GFR IS NOT sati=2446) ACCURATE CREATININE CLEARANCE IN PREDICTING GLOMERULAR FILTRATION RATE. ESTIMATED GFR IS NOT APPLICABLE FOR DIALYSIS PATIENTS. HEPATIC FUNCTION [id number] 16:58:00 Test Item Value Reference Range Comments TOTAL PROTEIN (BEAKER) (test 5.9 gm/dL 6.0-8.3 Specimen moderately hemolyzed kmyk=279) ALBUMIN (BEAKER) (test 3.0 g/dL 3.5-5.0 Specimen moderately hemolyzed jbkc=3365) BILIRUBIN TOTAL (BEAKER) (test 0.5 mg/dL 0.2-1.2 Specimen moderately hemolyzed kfcp=457) BILIRUBIN DIRECT (BEAKER) 0.2 mg/dL 0.1-0.5 Specimen moderately hemolyzed (test eczd=841) ALKALINE PHOSPHATASE (BEAKER) 81 U/L 40-150 (test sety=537) AST (SGOT) (BEAKER) (test 43 U/L 5-34 Specimen moderately hemolyzed dsnk=853) ALT (SGPT) (BEAKER) (test 25 U/L 6-55 Specimen moderately eztc=619) hemolyzed OXYGEN SATURATION, [id number] 16:36:00 Test Item Value Reference Range Comments O2 SATURATION (MEASURED) (BEAKER) (test csdg=8124) 52.1 % PROTHROMBIN [id number] 16:34:00 Test Item Value Reference Range Comments PROTIME (BEAKER) (test ywzk=588) 15.0 seconds 11.7-14.7 INR (BEAKER) (test euql=606) 1.2 <=5.9 RECOMMENDED COUMADIN/WARFARIN INR THERAPY RANGESSTANDARD DOSE: 2.0 - 3.0 Includes: PROPHYLAXIS forvenous thrombosis, systemic embolization; TREATMENT for venous thrombosis and/or pulmonary embolus.HIGH RISK: Target INR is 2.5-3.5 for patients with mechanical heart valves.[id number] 16:31:00 Test Item Value Reference Range Comments PARTIAL THROMBOPLASTIN TIME (BEAKER) (test 40.6 seconds 22.5-36.0 bzcz=279) LACTIC ACID, VENOUS, WHOLE [id number] 16:31:00 Test Item Value Reference Range Comments LACTATE BLOOD VENOUS (2) 3.8 mmol/L 0.5-2.2 Specimen slightly hemolyzed (BEAKER) (test ekhh=2589) POCT-LACTIC ACID, [id number] 13:44:00 Test Item Value Reference Range Comments POC-LACTIC ACID, VENOUS 2.3 mmol/L 0.9-1.[address] [facility] [address] (BEAKER) (test onvf=2367) [facility] [address] RAD, CHEST, 1 VIEW, NON [id number] 12:22:00Reason for exam:->possible aspiration, hypoxiaShould this be performed at the bedside?->YesFINAL REPORT HISTORY : possible aspiration, hypoxia. Comparison: None Comment: Single portable view of the chest was obtained. The cardiac silhouette size is within normal limits. No pneumothorax is seen. There may be trace left-sided pleural effusion. There is some nonspecificperihilar bibasilar airspace disease, left greater than right. Findings could represent pulmonary edema, aspiration or a nonspecific pneumonitis. There is some nonspecific air in the right hemidiaphragm. The free air is nonspecific but may be related to the patient's recent surgery. In the appropriateclinical context, free air from a perforation cannot be entirely excluded. The findings were communicated to Anjana from rapid response and will notify the physician. Signed: Shad Chowdary Verified Date/Time: 05/17/2018 12:22:34 Reading Location: [address] Transitional Reading Room POCT-LACTIC ACID, [id number] 10:48:00 Test Item Value Reference Range Comments POC-LACTIC ACID, ARTERIAL 4.2 mmol/L 0.4-1.[address] [facility] (test efwq=4994) [facility] [address] POCT-BLOOD GASES, [id number] 10:48:00 Test Item Value Reference Range Comments TEMP, CELSIUS-POC (BEAKER) 37.0 (test dyzd=6136) FIO2-POC (BEAKER) (test TESTED AT [address] jwpo=6395) [place] [address] PH, ARTERIAL-POC (BEAKER) 7.408 7.350-7.450 (test vkgl=8411) PCO2, ARTERIAL-POC (BEAKER) 24.3 mm Hg 35.0-45.0 (test utwd=8959) PO2, ARTERIAL-POC (BEAKER) 53.0 mm Hg 80.0-90.0 (test uyfd=7245) SO2, ARTERIAL-POC (BEAKER) 88.0 % 96.0-97.0 (test fmzr=1686) HCO3, ARTERIAL-POC (BEAKER) 15.3 meq/L 21.0-29.0 (test btnz=8851) BASE EXCESS, ARTERIAL-POC -9.0 meq/L -2.0-3.0 (BEAKER) (test qqzy=9902) [id number] 10:48:00 Test Item Value Reference Range Comments POC-SODIUM (BEAKER) (test 140 meq/L 135-148 TESTED AT [address] rzeu=3659) [place] [id number] 10:48:00 Test Item Value Reference Range Comments POC-POTASSIUM (BEAKER) (test 4.0 meq/L 3.6-5.5 TESTED AT [address] eavt=6895) [place] [address] [id number] 10:48:00 Test Item Value Reference Range Comments POC-GLUCOSE (BEAKER) (test 170 mg/dL 70-110 TESTED AT [address] aevn=7570) [place] [address] POCT-CALCIUM [id number] 10:48:00 Test Item Value Reference Range Comments POC-CALCIUM IONIZED (BEAKER) 1.24 mmol/L 1.12-1.27 TESTED AT [address] (test dhuc=8757) [place] [address] [id number] 10:48:00 Test Item Value Reference Range Comments POC-HEMATOCRIT (BEAKER) (test 38 % 40-50 TESTED AT [address] ybtk=8426) [place] [address] [id number] 10:48:00 Test Item Value Reference Range Comments POC-HEMOGLOBIN (BEAKER) 12.9 g/dL 13.0-16.8 TESTED AT [address] (test zqol=4683) [place] [id number] AT [place] [address] [id number] 07:16:00 Test Item Value Reference Range Comments PHOSPHORUS (BEAKER) (test puri=215) 1.5 mg/dL 2.3-4.7 [id number] 07:04:00 Test Item Value Reference Range Comments MAGNESIUM (BEAKER) (test ybsi=068) 1.8 mg/dL 1.6-2.6 BASIC METABOLIC [id number] 07:04:00 Test Item Value Reference Range Comments SODIUM (BEAKER) (test 139 meq/L 136-145 lirw=799) POTASSIUM (BEAKER) (test 3.7 meq/L 3.5-5.1 xici=039) CHLORIDE (BEAKER) (test 110 meq/L 98-107 nkdf=836) CO2 (BEAKER) (test 23 meq/L 22-29 bwsi=411) BLOOD UREA NITROGEN 10 mg/dL 7-21 (BEAKER) (test nnyg=940) CREATININE (BEAKER) (test 0.82 mg/dL 0.57-1.25 ytyu=680) GLUCOSE RANDOM (BEAKER) 176 mg/dL 70-105 (test fzwd=971) CALCIUM (BEAKER) (test 8.9 mg/dL 8.4-10.2 efww=286) EGFR (BEAKER) (test 99 mL/min/1.73 sq m ESTIMATED GFR IS NOT ryor=7867) ACCURATE CREATININE CLEARANCE IN PREDICTING GLOMERULAR FILTRATION RATE. ESTIMATED GFR IS NOT APPLICABLE FOR DIALYSIS PATIENTS. PROTHROMBIN [id number] 05:46:00 Test Item Value Reference Range Comments PROTIME (BEAKER) (test cyom=029) 14.9 seconds 11.7-14.7 INR (BEAKER) (test fgbp=209) 1.2 <=5.9 RECOMMENDED COUMADIN/WARFARIN INR THERAPY RANGESSTANDARD DOSE: 2.0 - 3.0 Includes: PROPHYLAXIS forvenous thrombosis, systemic embolization; TREATMENT for venous thrombosis and/or pulmonary embolus.HIGH RISK: Target INR is 2.5-3.5 for patients with mechanical heart valves.CBC (HEMOGRAM ONLY)2018-05-17 05:38:00 Test Item Value Reference Range Comments WHITE BLOOD CELL COUNT (BEAKER) (test zmkz=020) 13.3 K/ L 3.5-10.5 RED BLOOD CELL COUNT (BEAKER) (test xqhs=428) 4.86 M/ L 4.63-6.08 HEMOGLOBIN (BEAKER) (test ofgd=312) 11.0 GM/DL 13.7-17.5 HEMATOCRIT (BEAKER) (test ybwl=400) 36.9 % 40.1-51.0 MEAN CORPUSCULAR VOLUME (BEAKER) (test jfdp=210) 75.9 fL 79.0-92.2 MEAN CORPUSCULAR HEMOGLOBIN (BEAKER) (test 22.6 pg 25.7-32.2 exmq=180) MEAN CORPUSCULAR HEMOGLOBIN CONC (BEAKER) (test 29.8 GM/DL 32.3-36.5 gtkl=325) RED CELL DISTRIBUTION WIDTH (BEAKER) (test 22.4 % 11.6-14.4 jpky=307) PLATELET COUNT (BEAKER) (test hcmj=429) 283 K/CU MM 150-450 MEAN PLATELET VOLUME (BEAKER) (test kzhd=156) 9.3 fL 9.4-12.4 NUCLEATED RED BLOOD CELLS (BEAKER) (test 0 /100 WBC 0-0 qine=127) [id number] 07:51:00 Test Item Value Reference Range Comments MAGNESIUM (BEAKER) (test dqul=277) 1.0 mg/dL 1.6-2.6 [id number] 07:21:00 Test Item Value Reference Range Comments PHOSPHORUS (BEAKER) (test yxez=412) 2.8 mg/dL 2.3-4.7 BASIC METABOLIC [id number] 07:21:00 Test Item Value Reference Range Comments SODIUM (BEAKER) (test 139 meq/L 136-145 ynnc=865) POTASSIUM (BEAKER) (test 3.4 meq/L 3.5-5.1 mitc=903) CHLORIDE (BEAKER) (test 111 meq/L 98-107 qyzn=364) CO2 (BEAKER) (test 22 meq/L 22-29 ryky=184) BLOOD UREA NITROGEN 5 mg/dL 7-21 (BEAKER) (test lcph=295) CREATININE (BEAKER) (test 0.71 mg/dL 0.57-1.25 ojtt=514) GLUCOSE RANDOM (BEAKER) 135 mg/dL 70-105 (test ijsu=103) CALCIUM (BEAKER) (test 8.5 mg/dL 8.4-10.2 dqgp=304) EGFR (BEAKER) (test 117 mL/min/1.73 sq m ESTIMATED GFR IS NOT qezk=0453) ACCURATE CREATININE CLEARANCE IN PREDICTING GLOMERULAR FILTRATION RATE. ESTIMATED GFR IS NOT APPLICABLE FOR DIALYSIS PATIENTS. PROTHROMBIN [id number] 06:56:00 Test Item Value Reference Range Comments PROTIME (BEAKER) (test evks=310) 14.3 seconds 11.7-14.7 INR (BEAKER) (test grxy=211) 1.1 <=5.9 RECOMMENDED COUMADIN/WARFARIN INR THERAPY RANGESSTANDARD DOSE: 2.0 - 3.0 Includes: PROPHYLAXIS forvenous thrombosis, systemic embolization; TREATMENT for venous thrombosis and/or pulmonary embolus.HIGH RISK: Target INR is 2.5-3.5 for patients with mechanical heart valves.CBC (HEMOGRAM ONLY)2018-05-16 06:53:00 Test Item Value Reference Range Comments WHITE BLOOD CELL COUNT (BEAKER) (test ewts=383) 14.1 K/ L 3.5-10.5 RED BLOOD CELL COUNT (BEAKER) (test heaw=561) 4.27 M/ L 4.63-6.08 HEMOGLOBIN (BEAKER) (test xtmq=542) 10.0 GM/DL 13.7-17.5 HEMATOCRIT (BEAKER) (test omsy=188) 32.7 % 40.1-51.0 MEAN CORPUSCULAR VOLUME (BEAKER) (test gzxm=900) 76.6 fL 79.0-92.2 MEAN CORPUSCULAR HEMOGLOBIN (BEAKER) (test 23.4 pg 25.7-32.2 ktly=384) MEAN CORPUSCULAR HEMOGLOBIN CONC (BEAKER) (test 30.6 GM/DL 32.3-36.5 raob=669) RED CELL DISTRIBUTION WIDTH (BEAKER) (test 21.1 % 11.6-14.4 jtjm=937) PLATELET COUNT (BEAKER) (test cggk=398) 249 K/CU MM 150-450 MEAN PLATELET VOLUME (BEAKER) (test scnx=250) 9.3 fL 9.4-12.4 NUCLEATED RED BLOOD CELLS (BEAKER) (test 0 /100 WBC 0-0 xazb=808) BLOOD GAS, [id number] 18:35:00 Test Item Value Reference Range Comments PH ARTERIAL (BEAKER) (test pczy=750) 7.42 7.35-7.45 PCO2 ARTERIAL (BEAKER) (test fsxq=043) 38 mmHg 35-45 PO2 ARTERIAL (BEAKER) (test ohxd=667) 250 mmHg 80-90 O2 SATURATION ARTERIAL (BEAKER) (test jome=971) 99.6 % 96.0-97.0 HCO3 ARTERIAL (BEAKER) (test dfut=309) 24 mmol/L 21-29 BASE EXCESS ARTERIAL (BEAKER) (test dndm=876) -0.3 mmol/L -2.0-3.0 PATIENT TEMPERATURE (BEAKER) (test oppa=3105) 37.0 C POTASSIUM-STAT [id number] 18:35:00 Test Item Value Reference Range Comments POTASSIUM (BEAKER) (test fhub=840) 3.1 meq/L 3.6-5.5 GLUCOSE-STAT [id number] 18:35:00 Test Item Value Reference Range Comments GLUCOSE RANDOM (BEAKER) (test aznq=815) 144 mg/dL 70-110 HGB/HCT (H&H) - STAT [id number] 18:35:00 Test Item Value Reference Range Comments HEMOGLOBIN (BEAKER) (test dkvh=511) 8.9 g/dL 13.0-16.8 HEMATOCRIT (BEAKER) (test yjlo=149) 26.0 % 40.0-50.0 SODIUM NA-STAT [id number] 18:34:00 Test Item Value Reference Range Comments SODIUM (BEAKER) (test fliv=498) 141 meq/L 135-148 CALCIUM, [id number] 18:34:00 Test Item Value Reference Range Comments CALCIUM IONIZED (BEAKER) (test uuba=308) 1.05 mmol/L 1.12-1.27 PH, BLOOD (BEAKER) (test lior=8724) 7.42 SODIUM NA-STAT [id number] 17:05:00 Test Item Value Reference Range Comments SODIUM (BEAKER) (test hjdl=790) 139 meq/L 135-148 CALCIUM, [id number] 17:05:00 Test Item Value Reference Range Comments CALCIUM IONIZED (BEAKER) (test qejf=763) 1.07 mmol/L 1.12-1.27 PH, BLOOD (BEAKER) (test jztj=4590) 7.41 BLOOD GAS, [id number] 17:05:00 Test Item Value Reference Range Comments PH ARTERIAL (BEAKER) (test qfqj=090) 7.41 7.35-7.45 PCO2 ARTERIAL (BEAKER) (test ipjg=066) 38 mmHg 35-45 PO2 ARTERIAL (BEAKER) (test nbfh=733) 318 mmHg 80-90 O2 SATURATION ARTERIAL (BEAKER) (test sdhy=322) 99.7 % 96.0-97.0 HCO3 ARTERIAL (BEAKER) (test fwbu=053) 24 mmol/L 21-29 BASE EXCESS ARTERIAL (BEAKER) (test fiob=253) -0.7 mmol/L -2.0-3.0 PATIENT TEMPERATURE (BEAKER) (test velp=8314) 37.0 C POTASSIUM-STAT [id number] 17:05:00 Test Item Value Reference Range Comments POTASSIUM (BEAKER) (test jboz=756) 2.8 meq/L 3.6-5.5 GLUCOSE-STAT [id number] 17:05:00 Test Item Value Reference Range Comments GLUCOSE RANDOM (BEAKER) (test xoil=304) 123 mg/dL 70-110 HGB/HCT (H&H) - STAT [id number] 17:05:00 Test Item Value Reference Range Comments HEMOGLOBIN (BEAKER) (test dwry=795) 8.1 g/dL 13.0-16.8 HEMATOCRIT (BEAKER) (test lpxc=861) 24.0 % 40.0-50.0 CT, CHEST, WITH [id number] 16:52:00FINAL REPORT TECHNIQUE: CT scan of the chest [...] is most likely a fissural lymph node. Themild ground glass opacity in the lingula measures up to 1.6 cm on axial image 34. PLEURA: Small bilateral pleural effusions. HEART AND MEDIASTINUM: The visualized thyroid gland is normal. No significant mediastinal, hilar, or axillary lymphadenopathy. Calcified, nonenlarged subcarinal lymph nodes. Theheart and pericardium are within normal limits. SOFT TISSUES AND BONES: Mild degenerative changes ofthe visualized spine. UPPER ABDOMEN: The stomach is mildly distended. IMPRESSION: 1.No metastatic disease in the chest. 2.Small bilateral pleural effusions. 3.The groundglass opacities in the right upper lobe and lingula are most likely infectious. However, a follow-up CT of the chest is recommended in 3-6 months to exclude a neoplasm. Signed: Gorge Noble MDReport Verified Date/Time: 05/15/2018 16:52:54 Reading Location: [facility] C013Y CT Body Reading Room BASI METABOLIC [id number] 08:18:00 Test Item Value Reference Range Comments SODIUM (BEAKER) (test 143 meq/L 136-145 fzfu=094) POTASSIUM (BEAKER) (test 3.3 meq/L 3.5-5.1 ffdt=103) CHLORIDE (BEAKER) (test 112 meq/L 98-107 oqmn=613) CO2 (BEAKER) (test 27 meq/L 22-29 bzfr=534) BLOOD UREA NITROGEN 6 mg/dL 7-21 (BEAKER) (test okqg=014) CREATININE (BEAKER) (test 0.77 mg/dL 0.57-1.25 effv=826) GLUCOSE RANDOM (BEAKER) 91 mg/dL 70-105 (test zixs=508) CALCIUM (BEAKER) (test 8.6 mg/dL 8.4-10.2 xgym=256) EGFR (BEAKER) (test 106 mL/min/1.73 sq m ESTIMATED GFR IS NOT jvge=4171) ACCURATE CREATININE CLEARANCE IN PREDICTING GLOMERULAR FILTRATION RATE. ESTIMATED GFR IS NOT APPLICABLE FOR DIALYSIS PATIENTS. [id number] 07:24:00 Test Item Value Reference Range Comments PHOSPHORUS (BEAKER) (test lzxw=315) 2.5 mg/dL 2.3-4.7 [id number] 07:24:00 Test Item Value Reference Range Comments MAGNESIUM (BEAKER) (test rasd=700) 1.5 mg/dL 1.6-2.6 CBC (HEMOGRAM ONLY)2018-05-15 07:14:00 Test Item Value Reference Range Comments WHITE BLOOD CELL COUNT (BEAKER) (test zpvs=493) 3.8 K/ L 3.5-10.5 RED BLOOD CELL COUNT (BEAKER) (test piwv=384) 3.61 M/ L 4.63-6.08 HEMOGLOBIN (BEAKER) (test rofq=397) 7.5 GM/DL 13.7-17.5 HEMATOCRIT (BEAKER) (test ucfe=916) 26.6 % 40.1-51.0 MEAN CORPUSCULAR VOLUME (BEAKER) (test gvrl=202) 73.7 fL 79.0-92.2 MEAN CORPUSCULAR HEMOGLOBIN (BEAKER) (test 20.8 pg 25.7-32.2 pnvb=585) MEAN CORPUSCULAR HEMOGLOBIN CONC (BEAKER) (test 28.2 GM/DL 32.3-36.5 dtfo=280) RED CELL DISTRIBUTION WIDTH (BEAKER) (test 19.5 % 11.6-14.4 urjl=464) PLATELET COUNT (BEAKER) (test bqby=698) 240 K/CU MM 150-450 MEAN PLATELET VOLUME (BEAKER) (test xoqi=266) 9.2 fL 9.4-12.4 NUCLEATED RED BLOOD CELLS (BEAKER) (test 0 /100 WBC 0-0 uctp=848) PROTHROMBIN [id number] 06:58:00 Test Item Value Reference Range Comments PROTIME (BEAKER) (test mlis=205) 14.4 seconds 11.7-14.7 INR (BEAKER) (test yqud=676) 1.1 <=5.9 RECOMMENDED COUMADIN/WARFARIN INR THERAPY RANGESSTANDARD DOSE: 2.0 - 3.0 Includes: PROPHYLAXIS forvenous thrombosis, systemic embolization; TREATMENT for venous thrombosis and/or pulmonary embolus.HIGH RISK: Target INR is 2.5-3.5 for patients with mechanical heart valves.TISSUE [id number] 14:41: 00Surgical Pathology Report Case: [id number] Authorizing Provider: Thee Arrington, Collected : 05/12/2018 0936 Ordering[address]: [address] Received: 05/12/2018 1522 Service Pathologist: Cyril Chow MD Specimens: A) -Biopsy, Gastric, Random, Bx B) - Distal Esophagus, Bx C) - Proximal Esophagus, Bx D) - Large Intestine, Colon - Transverse, Stricture Bx E) - Rectal, Ulcer Bx A. 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 PYLORI ORGANISMS BY WARTHIN-STARRY STAINB. ESOPHAGUS, DISTAL, BIOPSY: - SQUAMOUS EPITHELIUM WITH MILD REFLUX ESOPHAGITIS C. ESOPHAGUS, PROXIMAL, BIOPSY: - SQUAMOUS EPITHELIUM WITH NO SIGNIFICANT PATHOLOGIC CHANGE - NEGATIVE FOR INTRA-EPITHELIAL EOSINOPHILSD. 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 RECTUM , ULCER, BIOPSY: - COLORECTAL MUCOSA WITH MILD EDEMA AND REGENERATIVE CHANGES - NEGATIVE FOR INFLAMMATION/ ULCERATION - NEGATIVE FOR DYSPLASIA OR MALIGNANCY Signing Pathologist Direct Phone Line: [phone] signed by Cyril Chow MD on 05/14/2018 at 2:41 PMPreliminary result electronically signed by Cyril Chow MD on 2017 at 6:31 [facility] all four MMR proteins was performed on selected block D1 with appropriate controls. RESULTS MLH1: Intact nuclear expression MSH2 : Intact nuclear expression MSH6: Intact nuclear expression PMS2: Intact nuclear expression IHC Interpretation No loss of nuclear expression of MMR proteins: low probability of microsatellite instability-high (MSI-H)There are exceptions to the above IHC interpretations. These results should not be considered in isolation, and clinical correlation with genetic counseling is recommended to assess the need for germline testing.[id number], hematochezia A. Random gastric biopsy; B. Distal esophagus biopsy; C. Proximal esophagus biopsy; D. Transverse stricture biopsy; Rectal ulcerbiopsyThe specimens are received in five containers of formalin all labeled with the patient's information. Part A labeled "random gastric biopsy" consists of four fragments of marcos tissue ranging from 0.1 to 0.6 cm, submitted entirely A1.Part B labeled "distal esophagus biopsy" consists of three fragments of off white soft tissue ranging from 0.2 to 0.5 cm, submitted entirely B1.Part C labeled "proximal esophagus biopsy" consists of three fragments of off white tissue ranging from 0.2 to 0.5 cm, submitted entirely C1. Part D labeled "transverse stricture biopsy" consists of multiple fragments of marcos tissue ranging from 0.1 to 0.5 cm, submitted entirely D1. Part E labeled "rectal ulcer biopsy" consists of three fragments of marcos-white soft tissue ranging from 0.1 to 0.6 cm, submitted entirely E1. CG/pl A-E: Performed.The interpretation of this case included the use of immunohistochemistry or special stains. Immunohistochemistry technical testing was performed at [facility], Pathology Laboratory where it was developed and its performance characteristics were determined. It has not been cleared or approved by the U.S. Food and Drug Administration. The FDA has determined thatsuch clearance or approval is not necessary. The test is used for clinical purposes. It should not be regarded as investigational or for research. This laboratory is certified under the Clinical Laboratory Improvement Amendments of 1988 (CLIA-88) as qualified to perform high complexity clinical laboratory testing.[id number] 07:00:00 Test Item Value Reference Range Comments MAGNESIUM (BEAKER) (test xjza=488) 1.5 mg/dL 1.6-2.6 BASIC METABOLIC [id number] 07:00:00 Test Item Value Reference Range Comments SODIUM (BEAKER) (test 142 meq/L 136-145 cpwl=256) POTASSIUM (BEAKER) (test 3.6 meq/L 3.5-5.1 hhck=565) CHLORIDE (BEAKER) (test 113 meq/L 98-107 zbyb=391) CO2 (BEAKER) (test 26 meq/L 22-29 gvdt=243) BLOOD UREA NITROGEN 7 mg/dL 7-21 (BEAKER) (test klxh=154) CREATININE (BEAKER) (test 0.73 mg/dL 0.57-1.25 rocr=729) GLUCOSE RANDOM (BEAKER) 86 mg/dL 70-105 (test cnkt=574) CALCIUM (BEAKER) (test 8.5 mg/dL 8.4-10.2 zzru=240) EGFR (BEAKER) (test 113 mL/min/1.73 sq m ESTIMATED GFR IS NOT unpi=3473) ACCURATE CREATININE CLEARANCE IN PREDICTING GLOMERULAR FILTRATION RATE. ESTIMATED GFR IS NOT APPLICABLE FOR DIALYSIS PATIENTS. CBC (HEMOGRAM ONLY)2018-05-14 06:55:00 Test Item Value Reference Range Comments WHITE BLOOD CELL COUNT (BEAKER) (test xohd=542) 4.5 K/ L 3.5-10.5 RED BLOOD CELL COUNT (BEAKER) (test cgmm=905) 3.58 M/ L 4.63-6.08 HEMOGLOBIN (BEAKER) (test txfp=201) 7.3 GM/DL 13.7-17.5 HEMATOCRIT (BEAKER) (test tfuv=281) 26.1 % 40.1-51.0 MEAN CORPUSCULAR VOLUME (BEAKER) (test udal=647) 72.9 fL 79.0-92.2 MEAN CORPUSCULAR HEMOGLOBIN (BEAKER) (test 20.4 pg 25.7-32.2 cdey=952) MEAN CORPUSCULAR HEMOGLOBIN CONC (BEAKER) (test 28.0 GM/DL 32.3-36.5 ppiv=365) RED CELL DISTRIBUTION WIDTH (BEAKER) (test 18.9 % 11.6-14.4 arvi=294) PLATELET COUNT (BEAKER) (test gcsl=016) 273 K/CU MM 150-450 MEAN PLATELET VOLUME (BEAKER) (test igvb=903) 9.3 fL 9.4-12.4 NUCLEATED RED BLOOD CELLS (BEAKER) (test 0 /100 WBC 0-0 yigt=057) [id number] 11:16:00 Test Item Value Reference Range Comments MAGNESIUM (BEAKER) (test ejkj=804) 1.6 mg/dL 1.6-2.6 BASIC METABOLIC [id number] 11:16:00 Test Item Value Reference Range Comments SODIUM (BEAKER) (test 141 meq/L 136-145 dpan=728) POTASSIUM (BEAKER) (test 3.2 meq/L 3.5-5.1 inle=181) CHLORIDE (BEAKER) (test 112 meq/L 98-107 lulq=062) CO2 (BEAKER) (test 23 meq/L 22-29 awoy=444) BLOOD UREA NITROGEN 9 mg/dL 7-21 (BEAKER) (test gbbu=854) CREATININE (BEAKER) (test 0.78 mg/dL 0.57-1.25 bhnv=189) GLUCOSE RANDOM (BEAKER) 98 mg/dL 70-105 (test sybv=618) CALCIUM (BEAKER) (test 8.5 mg/dL 8.4-10.2 vrtx=733) EGFR (BEAKER) (test 105 mL/min/1.73 sq m ESTIMATED GFR IS NOT soes=8362) ACCURATE CREATININE CLEARANCE IN PREDICTING GLOMERULAR FILTRATION RATE. ESTIMATED GFR IS NOT APPLICABLE FOR DIALYSIS PATIENTS. CBC (HEMOGRAM ONLY)2018-05-13 10:26:00 Test Item Value Reference Range Comments WHITE BLOOD CELL COUNT (BEAKER) (test ijnl=491) 6.1 K/ L 3.5-10.5 RED BLOOD CELL COUNT (BEAKER) (test ryyz=847) 3.84 M/ L 4.63-6.08 HEMOGLOBIN (BEAKER) (test fbgb=443) 7.9 GM/DL 13.7-17.5 HEMATOCRIT (BEAKER) (test iimt=206) 27.8 % 40.1-51.0 MEAN CORPUSCULAR VOLUME (BEAKER) (test fqea=164) 72.4 fL 79.0-92.2 MEAN CORPUSCULAR HEMOGLOBIN (BEAKER) (test 20.6 pg 25.7-32.2 tnrw=600) MEAN CORPUSCULAR HEMOGLOBIN CONC (BEAKER) (test 28.4 GM/DL 32.3-36.5 vpxm=100) RED CELL DISTRIBUTION WIDTH (BEAKER) (test 18.7 % 11.6-14.4 qxst=029) PLATELET COUNT (BEAKER) (test neej=418) 261 K/CU MM 150-450 MEAN PLATELET VOLUME (BEAKER) (test evau=401) 9.3 fL 9.4-12.4 NUCLEATED RED BLOOD CELLS (BEAKER) (test 0 /100 WBC 0-0 xuum=360) CT, [id number] 15:26:00Stricture seen on colonoscopy. Could not be traversed. ?malignant vs inflammatory.CT scan to furtherevaluatePO and IV contrast pleaseFINAL REPORT ABDOMINAL AND PELVIS CT DATED 05/12/2018 CLINICAL INFORMATION:Neoplasm: colorectal, suspected TECHNIQUE : Axial images of the abdomen and pelvis were obtained from diaphragm to the pubic symphysis with GI and intravenous contrast. This exam was performed according to our departmental dose-optimization program, which includes automated exposure control, adjustment of the mA and/or kV according to patient size and/or use of interactive reconstruction technique. COMMENT: Liver and spleen are normal in size without focal abnormality. Gallbladder is contracted. No gallstone or biliary dilatation is noted. Pancreas and adrenals are unremarkable. Both kidneys are normal in size and functioning. A 2 mm stone is seen in the right inferior pole kidney. No hydronephrosis or hydroureter is noted. Stomach is distended with contrast and air. The opacified small bowel is normal in caliber. The evaluation of the large bowel is limited secondary to lack of sufficientGI contrast. There is focal wall thickening in the rectum. A 0.6 x 1.4 cm metallic foreign bodies seen in the region of the rectum. Please correlate clinically. Appendix is normal in caliber. Trace amount of free fluid is seen in the pelvis. IMPRESSION: 1. Nonspecific focal wall thickening in the rectum.2. No adenopathy in the abdomen or pelvis.3. Right renal stone without hydronephrosis or hydroureter. Signed: Dima Avalos MDReport Verified Date/Time: 05/12/2018 15:26:41 Reading Location: [facility] [id number] CT Body Reading Room [id number] 06:59:00 Test Item Value Reference Range Comments MAGNESIUM (BEAKER) (test fjqz=616) 1.4 mg/dL 1.6-2.6 BASIC METABOLIC [id number] 06:59:00 Test Item Value Reference Range Comments SODIUM (BEAKER) (test 142 meq/L 136-145 lzpf=371) POTASSIUM (BEAKER) (test 3.5 meq/L 3.5-5.1 ncck=923) CHLORIDE (BEAKER) (test 110 meq/L 98-107 pvqb=461) CO2 (BEAKER) (test 24 meq/L 22-29 ntyf=824) BLOOD UREA NITROGEN 14 mg/dL 7-21 (BEAKER) (test atke=168) CREATININE (BEAKER) (test 0.77 mg/dL 0.57-1.25 qcpq=127) GLUCOSE RANDOM (BEAKER) 75 mg/dL 70-105 (test icyi=097) CALCIUM (BEAKER) (test 8.8 mg/dL 8.4-10.2 fjkm=819) EGFR (BEAKER) (test 106 mL/min/1.73 sq m ESTIMATED GFR IS NOT xizn=0610) ACCURATE CREATININE CLEARANCE IN PREDICTING GLOMERULAR FILTRATION RATE. ESTIMATED GFR IS NOT APPLICABLE FOR DIALYSIS PATIENTS. PROTHROMBIN TIME/[id number] 06:43:00 Test Item Value Reference Range Comments PROTIME (BEAKER) (test aonu=043) 14.2 seconds 11.7-14.7 INR (BEAKER) (test qwzo=727) 1.1 <=5.9 RECOMMENDED COUMADIN/WARFARIN INR THERAPY RANGESSTANDARD DOSE: 2.0 - 3.0 Includes: PROPHYLAXIS forvenous thrombosis, systemic embolization; TREATMENT for venous thrombosis and/or pulmonary embolus.HIGH RISK: Target INR is 2.5-3.5 for patients with mechanical heart valves.CBC (HEMOGRAM ONLY)2018-05-12 06:39:00 Test Item Value Reference Range Comments WHITE BLOOD CELL COUNT (BEAKER) (test ltzg=260) 5.7 K/ L 3.5-10.5 RED BLOOD CELL COUNT (BEAKER) (test filn=098) 3.98 M/ L 4.63-6.08 HEMOGLOBIN (BEAKER) (test dvec=914) 8.0 GM/DL 13.7-17.5 HEMATOCRIT (BEAKER) (test jbvg=091) 28.5 % 40.1-51.0 MEAN CORPUSCULAR VOLUME (BEAKER) (test swwe=373) 71.6 fL 79.0-92.2 MEAN CORPUSCULAR HEMOGLOBIN (BEAKER) (test 20.1 pg 25.7-32.2 vbqd=108) MEAN CORPUSCULAR HEMOGLOBIN CONC (BEAKER) (test 28.1 GM/DL 32.3-36.5 pyed=395) RED CELL DISTRIBUTION WIDTH (BEAKER) (test 17.9 % 11.6-14.4 siue=704) PLATELET COUNT (BEAKER) (test tsgz=670) 310 K/CU MM 150-450 MEAN PLATELET VOLUME (BEAKER) (test gvyy=453) 9.2 fL 9.4-12.4 NUCLEATED RED BLOOD CELLS (BEAKER) (test 0 /100 WBC 0-0 tqbq=260) [id number] 17:28:00 Test Item Value Reference Range Comments FERRITIN (BEAKER) (test zpym=015) 6 ng/mL 5-275 Add to previous sampleAdd to previous sampleIRON, TIBC, % SAT. (WITHOUT FERRITIN )2018-05-11 17:07:00 Test Item Value Reference Range Comments IRON (BEAKER) (test amlw=903) 15.0 ug/dL 40.0-160.0 TOTAL IRON BINDING CAPACITY (BEAKER) (test 261 ug/dL 250-450 yqfp=968) IRON % SATURATION (2) (BEAKER) (test ochl=8166) 6 % 20-55 Add to previous sampleAdd to previous [id number] 06:51:00 Test Item Value Reference Range Comments MAGNESIUM (BEAKER) (test gkbh=328) 1.7 mg/dL 1.6-2.6 BASIC METABOLIC [id number] 06:51:00 Test Item Value Reference Range Comments SODIUM (BEAKER) (test 143 meq/L 136-145 jojh=735) POTASSIUM (BEAKER) (test 3.9 meq/L 3.5-5.1 iveh=098) CHLORIDE (BEAKER) (test 107 meq/L 98-107 yqvm=448) CO2 (BEAKER) (test 27 meq/L 22-29 yvri=057) BLOOD UREA NITROGEN 19 mg/dL 7-21 (BEAKER) (test wwji=848) CREATININE (BEAKER) (test 0.78 mg/dL 0.57-1.25 jccq=182) GLUCOSE RANDOM (BEAKER) 80 mg/dL 70-105 (test tjjz=134) CALCIUM (BEAKER) (test 9.2 mg/dL 8.4-10.2 okcj=032) EGFR (BEAKER) (test 105 mL/min/1.73 sq m ESTIMATED GFR IS NOT febr=0628) ACCURATE CREATININE CLEARANCE IN PREDICTING GLOMERULAR FILTRATION RATE. ESTIMATED GFR IS NOT APPLICABLE FOR DIALYSIS PATIENTS. CBC (HEMOGRAM ONLY)2018-05-11 06:16:00 Test Item Value Reference Range Comments WHITE BLOOD CELL COUNT (BEAKER) (test lrcb=542) 4.7 K/ L 3.5-10.5 RED BLOOD CELL COUNT (BEAKER) (test veib=953) 3.59 M/ L 4.63-6.08 HEMOGLOBIN (BEAKER) (test gjgs=028) 7.5 GM/DL 13.7-17.5 HEMATOCRIT (BEAKER) (test ppsw=802) 26.0 % 40.1-51.0 MEAN CORPUSCULAR VOLUME (BEAKER) (test fina=323) 72.4 fL 79.0-92.2 MEAN CORPUSCULAR HEMOGLOBIN (BEAKER) (test 20.9 pg 25.7-32.2 ybad=149) MEAN CORPUSCULAR HEMOGLOBIN CONC (BEAKER) (test 28.8 GM/DL 32.3-36.5 teos=747) RED CELL DISTRIBUTION WIDTH (BEAKER) (test 17.9 % 11.6-14.4 sreg=228) PLATELET COUNT (BEAKER) (test fark=641) 263 K/CU MM 150-450 MEAN PLATELET VOLUME (BEAKER) (test gujx=067) 9.3 fL 9.4-12.4 NUCLEATED RED BLOOD CELLS (BEAKER) (test 0 /100 WBC 0-0 xnpw=901) HEMOGLOBIN AND [id number] 15:51:00 Test Item Value Reference Range Comments HEMOGLOBIN (BEAKER) (test qxet=786) 7.3 GM/DL 13.7-17.5 HEMATOCRIT (BEAKER) (test yvin=914) 26.4 % 40.1-51.0 [id number] 07:18:00 Test Item Value Reference Range Comments MAGNESIUM (BEAKER) (test tkhw=440) 1.9 mg/dL 1.6-2.6 BASIC METABOLIC [id number] 07:18:00 Test Item Value Reference Range Comments SODIUM (BEAKER) (test 144 meq/L 136-145 iwfg=305) POTASSIUM (BEAKER) (test 4.0 meq/L 3.5-5.1 ltft=959) CHLORIDE (BEAKER) (test 112 meq/L 98-107 tjxm=685) CO2 (BEAKER) (test 26 meq/L 22-29 ncib=033) BLOOD UREA NITROGEN 25 mg/dL 7-21 (BEAKER) (test fahy=857) CREATININE (BEAKER) (test 0.81 mg/dL 0.57-1.25 xhrc=268) GLUCOSE RANDOM (BEAKER) 83 mg/dL 70-105 (test khmg=416) CALCIUM (BEAKER) (test 9.2 mg/dL 8.4-10.2 lhvy=851) EGFR (BEAKER) (test 100 mL/min/1.73 sq m ESTIMATED GFR IS NOT ebac=3727) ACCURATE CREATININE CLEARANCE IN PREDICTING GLOMERULAR FILTRATION RATE. ESTIMATED GFR IS NOT APPLICABLE FOR DIALYSIS PATIENTS. CBC (HEMOGRAM ONLY)2018-05-10 06:43:00 Test Item Value Reference Range Comments WHITE BLOOD CELL COUNT (BEAKER) (test fbdc=647) 4.5 K/ L 3.5-10.5 RED BLOOD CELL COUNT (BEAKER) (test wzqm=241) 3.44 M/ L 4.63-6.08 HEMOGLOBIN (BEAKER) (test lwfq=449) 7.0 GM/DL 13.7-17.5 HEMATOCRIT (BEAKER) (test usoh=506) 25.6 % 40.1-51.0 MEAN CORPUSCULAR VOLUME (BEAKER) (test buru=997) 74.4 fL 79.0-92.2 MEAN CORPUSCULAR HEMOGLOBIN (BEAKER) (test 20.3 pg 25.7-32.2 vxqv=077) MEAN CORPUSCULAR HEMOGLOBIN CONC (BEAKER) (test 27.3 GM/DL 32.3-36.5 habn=951) RED CELL DISTRIBUTION WIDTH (BEAKER) (test 18.3 % 11.6-14.4 scss=433) PLATELET COUNT (BEAKER) (test yvbm=371) 242 K/CU MM 150-450 MEAN PLATELET VOLUME (BEAKER) (test gwoq=843) 9.5 fL 9.4-12.4 NUCLEATED RED BLOOD CELLS (BEAKER) (test 0 /100 WBC 0-0 dvis=508)
[2018-06-17] MEDS ORDERED: NA CHLORIDE 0.9% 2,000 ML ONE (15:20)
[2018-06-17] MEDS ORDERED: PIPER/TAZO/NS 3.375gm 3.375 GM/100 ML BAG ONE (15:21)
[2018-06-17 15:25] LABS: Absolute Lymphocytes (CBC) 1.7 K/uL (0.7-4.9); Absolute Monocytes 1.5 K/uL (0.1-1.3); Absolute Neutrophil 15.9 K/uL (1.8-8.0); Basophils % 0.5 % (0-1.3); Hematocrit 38.5 % (39.6-49.0); Lymphocytes % 8.7 % (15.3-44.8); Monocytes % 7.6 % (3.3-12.3); RBC Red Blood Cell Count 4.84 M/uL (4.33-5.43)
[2018-06-17 15:28] LABS: Protime INR 1.15
--- NOTE | 2018-06-17 15:42 | RAD REPORT ---
EXAM DESCRIPTION: Hugh Single View06/17/2018 3:24 pm CLINICAL HISTORY: Fever COMPARISON: April 2018 FINDINGS: Mild opacities are suspected within the mid and lower left lung. The right lung appears cl ear. A lucency is present within the lower right lateral hemithorax. Central venous line has tip in superior vena cava. The heart is normal size IMPRESSION: Mild patchy left lung opacities are suspected likely representing mild pneumonia Lucency within the lower lateral right hemithorax probably representing a skin fold. A pneumothorax i s less likely. It is recommended that the patient have a frontal chest film in expiration for further evaluation
[2018-06-17 15:48] LABS: Urine White Blood Cell Casts OK
[2018-06-17 15:49] LABS: Anisocytosis 3+; Blood Morphology Comment NOTED (NOT SEEN); Hypochromasia 1+; Platelet Estimate INCR; Polychromasia SLIGHT
[2018-06-17 15:58] LABS: ALT/SGPT 75 U/L (12-78); AST/SGOT 69 U/L (15-37); Albumin 2.8 g/dL (3.4-5.0); Alkaline Phosphatase 439 U/L (45-117); BUN Blood Urea Nitrogen 23 mg/dL (7-18); Bicarbonate 24 mmol/L (21-32); Bilirubin Direct 0.2 mg/dL (0-0.2); Bilirubin Total 0.2 mg/dL (0.2-1.0); Creatine Phosphokinase 20 U/L (39-308); Glucose Level 156 mg/dL (74-106); Lipase 313 U/L (73-393); Potassium 4.3 mmol/L (3.5-5.1); Sodium Level 139 mmol/L (136-145); Troponin (Emerg Dept Use Only) < 0.02 ng/mL (0.0-0.045)
--- NOTE | 2018-06-17 16:38 | RAD REPORT ---
EXAM DESCRIPTION: CT - Chest Abd Pelvis Wo Con - 06/17/2018 4:26 pm CLINICAL HISTORY: Chest and abdomen pain. FEVER COMPARISON: Abdomen Pelvis Wo Contrast dated 07/10/2017 TECHNIQUE: A limited noncontrast study was performed. All CT scans are performed using dose optimization technique as appropriate and may include automated exposure control or mA/KV adjustment according to patient size. FINDINGS: Moderate ill-defined linear opacities are present predominately in both posterior lung bas es suggesting aspiration or pneumonia.Small left pleural effusion is noted.No intrathoracic adenopath y. Diffuse fatty liver is present. The spleen, pancreas, adrenal glands within normal limits. Small ston es are present in both kidneys including a 4 mm stone in the inferior calyx right kidney. No bowel obstruction, free air, free fluid or abscess. Postsurgical changes are present about the sma ll bowel in the left lower quadrant. Right lower quadrant ostomy is present. Urinary bladder appears quite thick with air present as well as some mild hyperdense material. A linear radiodensity is prese nt in the rectum, presumably related to recent intervention. No pathologic lymphadenopathy in the abd omen or pelvis. No worrisome osseous finding. IMPRESSION: Ill-defined bilateral lower lobe lung opacities are present with a small pleural effusio n suggesting aspiration or pneumonia. Diffuse fatty liver. Thickened urinary bladder with air present may be result of infection recent instrumentation.
[2018-06-17] MEDS ORDERED: LIDOCAINE VISCOUS 2% SOLN 15 ML UDC ONE (17:06)
--- NOTE | 2018-06-17 19:38 | EKG ---
Test Date: 2018-06-17 Test Time: 15:03:16 Trimming Department Blocker: SILVINO MEASUREMENT RESULTS: Intervals: Rate: 135 UT: 130 QRSD: 84 QT: 294 QTc: 441 [place]: P: 75 UT: 130 QRS: 83 T: 77 INTERPRETIVE STATEMENTS: Sinus tachycardia Otherwise normal ECG Compared to ECG 05/09/2018 13:34:39 Sinus rhythm no longer present Electronically Signed On 06-17-18 19:37:16 PARATRANSIT OPERATOR by Thee Castellon
--- NOTE | 2018-06-17 19:39 | EDPHYS ---
Physician Documentation [facility] Name: Kraig Weston Jr Age: 52 yrs Sex: Male : 1965 Arrival Date: 06/17/2018 Time: 15:02 Bed 6 Private MD: ED Physician Evens Al HPI: 06/17 19:13 This 52 yrs old Male presents to ER via EMS with complaints of Decreased gs Appetite, high heart rate. 19:13 Onset: The symptoms/episode began/occurred today. Modifying factors: there are no gs obvious modifying factors. Associated signs and symptoms: Pertinent negatives: altered mental status. Unable to obtain HPI due to patient distress, patient's speech is incomprehensible. Historical: - Allergies: 18:52 No Known Drug Allergies; hb - PMHx: 15:09 Anxiety; Cerebral Palsy; Depression; epilepsy; GERD; High Cholesterol; Hypertension; ss - PSHx: 15:09 bowel resection with colostomy; ss - Immunization history:: Adult Immunizations unknown. - Social history:: Smoking status: unknown. - Ebola Screening: : Patient denies exposure to infectious person Patient denies travel to an Ebola-affected area in the 21 days before illness onset. ROS: 19:13 Unable to obtain ROS due to patient distress, patient's speech is incomprehensible. gs Exam: 19:13 Head/Face: Normocephalic, atraumatic. Eyes: Pupils equal round and reactive to light, gs extra-ocular motions intact. Lids and lashes normal. Conjunctiva and sclera are non-icteric and not injected. Cornea within normal limits. Periorbital areas with no swelling, redness, or edema. ENT: Nares patent. No nasal discharge, no septal abnormalities noted. Tympanic membranes are normal and external auditory canals are clear. Oropharynx with no redness, swelling, or masses, exudates, or evidence of obstruction, uvula midline. Mucous membranes moist. Neck: Trachea midline, no thyromegaly or masses palpated, and no cervical lymphadenopathy. Supple, full range of motion without nuchal rigidity, or vertebral point tenderness. No Meningismus. Chest/axilla: Normal chest wall appearance and motion. Nontender with no deformity. No lesions are appreciated. 19:13 Back: No spinal tenderness. No costovertebral tenderness. Full range of motion. 19:13 Constitutional: The patient appears alert, awake, in obvious distress, severely distressed. 19:13 Cardiovascular: Rate: tachycardic, Rhythm: regular, Pulses: no pulse deficits are appreciated. 19:13 ECG was reviewed by the Attending Physician. 19:13 Respiratory: the patient does not display signs of respiratory distress, Breath sounds: rhonchi, that are mild, are heard diffusely. 19:13 Abdomen/GI: Palpation: abdomen is soft and non-tender, colostomy in place. 19:13 Musculoskeletal/extremity: Extremities: contracted, Perfusion: the patient is normally perfused throughout. Vital Signs: 15:03 BP 81 / 63; Pulse 137; Resp 33; Temp 99.4(A); Pulse Ox 99% ; sv 15:03 BP 66 / 43; Pulse 133; Resp 27; Pulse Ox 100% ; sv 15:09 Weight 45.36 kg; sv 15:20 BP 82 / 61; Pulse 120; Resp 22; Pulse Ox 100% ; sv 15:45 BP 96 / 73; Pulse 122; Resp 21; Pulse Ox 100% ; sv 16:00 BP 96 / 80; Pulse 114; Resp 16; Pulse Ox 100% ; sv 16:30 BP 106 / 80; Pulse 102; Resp 17; Pulse Ox 100% ; sv 17:00 BP 109 / 80; Pulse 119; Resp 15; Pulse Ox 100% ; sv 17:35 BP 109 / 89; Pulse 102; Resp 25; Pulse Ox 100% ; sv 18:08 BP 107 / 89; Pulse 100; Resp 16; Pulse Ox 100% on R/A; sv 20:05 BP 111 / 80; Pulse 102; Resp 17; Pulse Ox 100% ; Pain 0/10; tl1 20:57 BP 117 / 98; Pulse 104; Resp 19; Temp 98(A); Pulse Ox 100% ; Pain 2/10; tl1 15:03 Dr Al informed. sv MDM: 15:08 Patient medically screened. gs 19:13 Differential diagnosis: viral Infection, bacterial infection, pneumonia UTI, gs sepsis,severe sepsis. Data reviewed: vital signs, nurses notes. Response to treatment: the patient's symptoms have markedly improved after treatment. 19:36 ED course: attempted [facility] after removed for malfunction will need urology to help gs place new catheter dr horn not medical device sales consultant not available. 06/17 15:02 Order name: glucometer results - FOR PT WITH NO ID sv 01/22 15:07 Order name: Basic Metabolic Panel; Complete Time: 16:40 06/17 15:07 Order name: Blood Culture Adult (2) 06/17 15:07 Order name: CBC with Diff; Complete Time: 16:40 06/17 15:07 Order name: CPK; Complete Time: 16:40 06/17 15:07 Order name: Lactate; Complete Time: 16:40 06/17 15:07 Order name: LFT's; Complete Time: 16:40 06/17 15:07 Order name: Lipase; Complete Time: 16:40 06/17 15:07 Order name: Procalcitonin; Complete Time: 16:40 06/17 15:07 Order name: Protime (+inr); Complete Time: 15:45 06/17 15:07 Order name: Troponin (emerg Dept Use Only); Complete Time: 16:40 06/17 15:07 Order name: Chest Single View XRAY; Complete Time: 15:45 06/17 15:48 Order name: CBC Smear Scan; Complete Time: 16:40 EDMS 06/17 15:07 Order name: Accucheck; Complete Time: 15:12 06/17 15:07 Order name: Cardiac monitoring; Complete Time: 15:11 06/17 15:07 Order name: EKG - Nurse/Tech; Complete Time: 15:11 06/17 15:07 Order name: IV Saline Lock - Large Bore; Complete Time: 15:12 06/17 15:07 Order name: Labs collected and sent; Complete Time: 15:12 06/17 15:07 Order name: O2 Per Protocol; Complete Time: 15:11 06/17 15:07 Order name: O2 Sat Monitoring; Complete Time: 15:11 06/17 15:45 Order name: CT Chest Abdomen Pelvis W/O Contrast; Complete Time: 16:40 06/17 17:43 Order name: EKG Electrocardiogram; Complete Time: 19:37 EDMS EC:13 Rate is 135 beats/min. Rhythm is regular. HI interval is normal. QRS interval is gs normal. T waves are Normal. No ST changes noted. Clinical impression: Abnormal EKG without significant change. Interpreted by me. Administered Medications: 15:18 Drug: Zosyn 3.375 grams Route: IVPB; Infused Over: 60 mins; Site: PICC; sv 16:15 Follow up: Response: No adverse reaction; IV Status: Completed infusion; IV Intake: sv 100ml 15:19 Drug: NS 0.9% (30 ml/kg) 30 ml/kg Route: IV; Rate: bolus; Site: PICC; sv 16:15 Follow up: Response: No adverse reaction; IV Status: Completed infusion; IV Intake: sv 1380ml 19:38 Drug: NS 0.9% 1000 ml Route: IV; Rate: 125 ml/hr; Site: right upper arm; tl1 20:55 Follow up: IV Status: Infusion continued upon transfer tl1 19:59 Drug: vancoMYCIN 1 grams Route: IVPB; Infused Over: 2 hrs; Site: right upper arm; tl1 20:54 Follow up: IV Status: Infusion continued upon transfer tl1 Disposition: 06/17/18 19:35 Transfer ordered to Other Acute Care Facility. Diagnosis are Severe sepsis without septic shock, Lobar pneumonia, unspecified organism. - Reason for transfer: Higher level of care. - Accepting physician is tbd. - Condition is Stable. - Problem is new. - Symptoms have improved. Critical care time excluding procedures: 19:13 Critical care time: Bedside Care: 10 minutes, Consultation: 10 minutes, Family gs Intervention: 10 minutes. Total time: 30 minutes Signatures: Dispatcher [employer] Michelle Bran RN DAMIAN Jenae Guerrier RN DAMIAN Amada Dela Cruz RN DAMIAN tl1 Karie Lewis RN RN Evens Al MD MD gs Corrections: (The following items were deleted from the chart) 21:09 19:35 06/17/2018 19:35 Transfer ordered to Other Acute Care Facility. Diagnosis is tl1 Severe sepsis without septic shock; Lobar pneumonia, unspecified organism. Reason for transfer: Higher level of care. Accepting physician is tbd. Condition is Stable. Problem is new. Symptoms have improved. gs
--- NOTE | 2018-06-17 19:39 | ER ---
Nurse's Notes [facility] Name: Kraig Weston Jr Age: 52 yrs Sex: Male : 1965 Arrival Date: 06/17/2018 Time: 15:02 Bed 6 Private MD: Diagnosis: Severe sepsis without septic shock;Lobar pneumonia, unspecified organism Presentation: 06/17 15:00 Presenting complaint: EMS states: Called out for tachycardia and decreased appetite x ss "a few days". Pt recently had a bowel resection and Head catheter placed. Pt is awake and alert, but has a history of CP and is non verbal. Urine is cloudy, and patient has a stage II sacral decubitus ulcer. Transition of care: patient was not received from another setting of care. Onset of symptoms is unknown. Risk Assessment: Do you want to hurt yourself or someone else? Patient reports no desire to harm self or others. Initial Sepsis Screen: Does the patient meet any 2 criteria? RR > 20 per min. Systolic BP < 90 mmHg. HR > 90 bpm. Does the patient have a suspected source of infection? Yes: Dysuria/Frequency/Urgency/UTI Skin breakdown/wound. Care prior to arrival: None. 15:00 Method Of Arrival: EMS: [facility] ss 15:00 Acuity: JERROD 2 ss Historical: - Allergies: 18:52 No Known Drug Allergies; hb - PMHx: 15:09 Anxiety; Cerebral Palsy; Depression; epilepsy; GERD; High Cholesterol; Hypertension; ss - PSHx: 15:09 bowel resection with colostomy; ss - Immunization history:: Adult Immunizations unknown. - Social history:: Smoking status: unknown. - Ebola Screening: : Patient denies exposure to infectious person Patient denies travel to an Ebola-affected area in the 21 days before illness onset. Screenin:37 Abuse screen: Denies threats or abuse. Denies injuries from another. Nutritional sv screening: No deficits noted. Tuberculosis screening: No symptoms or risk factors identified. Fall Risk No fall in past 12 months (0 pts). Secondary diagnosis (15 points) impaired mobility, IV access (20 points). Ambulatory Aid- None/Bed Rest/Nurse Assist (0 pts). Gait- Normal/Bed Rest/Wheelchair (0 pts) Mental Status- Overestimates/Forgets Limitations (15 pts.). Total Esparza Fall Scale indicates High Risk Score (45 or more points). Fall prevention measures have been instituted. Side Rails Up X 2 Placed Close to Nursing Station Frequent Obs/Assessments Occuring As available patient and family educated on Fall Prevention Program and Strategies. Assessment: 15:10 General: Appears in no apparent distress. ill, Behavior is calm, cooperative. Pain: hb Unable to use pain scale. FLACC scale score is 4 out of 10. Neuro: Level of Consciousness is awake, obeys commands, Oriented to person. Cardiovascular: Heart tones S1 S2 present Capillary refill < 3 seconds Patient's skin is warm and dry. Rhythm is sinus tachycardia. Respiratory: Airway is patent Trachea midline Respiratory effort is even, unlabored, Respiratory pattern is regular, symmetrical, Breath sounds are clear bilaterally. GI: No signs and/or symptoms were reported involving the gastrointestinal system. : Head in place to gravity drainage Urine is cloudy. EENT: No signs and/or symptoms were reported regarding the EENT system. Derm: Skin is healthy with good turgor, Skin is pale. Musculoskeletal: No signs and/or symptoms reported regarding the musculoskeletal system. 15:20 Reassessment: Head catheter leaking cloudy malodorous urine, linens soaked with urine, hb collection bag noted to have very cloudy brownish colored urine. Dr. Al notified, catheter removed, antonio care performed and linens changed. Pt tolerated well. 15:41 Reassessment: Multiple attempts at inserting new catheter were unsuccessful. Dr. Al notified. 15:48 Reassessment: Dr. Al at bedside for catheter insertion. 16:18 Reassessment: Dr. Al at bedside to speak with sister. 16:30 Reassessment: Patient appears in no apparent distress at this time. Patient and/or hb family updated on plan of care and expected duration. Pain level reassessed. Sister remains at bedside. 16:48 Reassessment: Dr. Al at bedside for catheter insertion. 17:15 Reassessment: Patient appears in no apparent distress at this time. Patient and/or hb family updated on plan of care and expected duration. Pain level reassessed. Family remains at bedside. 18:15 Reassessment: Patient appears in no apparent distress at this time. No changes from previously documented assessment. Patient and/or family updated on plan of care and expected duration. Pain level reassessed. 19:06 Reassessment: Sister Reshma durham [phone]. hb 20:55 Reassessment: No changes from previously documented assessment. Patient and/or family tl1 updated on plan of care and expected duration. Pain level reassessed. Called report to Selene at [facility]. Report acknowledged Patient states symptoms have improved. Vital Signs: 15:03 BP 81 / 63; Pulse 137; Resp 33; Temp 99.4(A); Pulse Ox 99% ; sv 15:03 BP 66 / 43; Pulse 133; Resp 27; Pulse Ox 100% ; sv 15:09 Weight 45.36 kg; sv 15:20 BP 82 / 61; Pulse 120; Resp 22; Pulse Ox 100% ; sv 15:45 BP 96 / 73; Pulse 122; Resp 21; Pulse Ox 100% ; sv 16:00 BP 96 / 80; Pulse 114; Resp 16; Pulse Ox 100% ; sv 16:30 BP 106 / 80; Pulse 102; Resp 17; Pulse Ox 100% ; sv 17:00 BP 109 / 80; Pulse 119; Resp 15; Pulse Ox 100% ; sv 17:35 BP 109 / 89; Pulse 102; Resp 25; Pulse Ox 100% ; sv 18:08 BP 107 / 89; Pulse 100; Resp 16; Pulse Ox 100% on R/A; sv 20:05 BP 111 / 80; Pulse 102; Resp 17; Pulse Ox 100% ; Pain 0/10; tl1 20:57 BP 117 / 98; Pulse 104; Resp 19; Temp 98(A); Pulse Ox 100% ; Pain 2/10; tl1 15:03 Dr Al informed. sv ED Course: 15:00 IV is patent, is intact, PICC to the right upper arm. sv 15:00 Initial lab(s) drawn, by ED staff, sent to lab. First set of blood cultures drawn by ED sv staff. 15:00 Arm band placed on. sv 15:00 Patient has correct armband on for positive identification. Placed in gown. Bed in low sv position. Side rails up X2. monitoring manager on. Pulse ox on. NIBP on. Door closed. Head of bed elevated. 15:02 Patient arrived in ED. sv 15:02 Evens Al MD is Attending Physician. gs 15:08 Triage completed. ss 15:13 EKG done, by copy technician. reviewed by Evens Al MD. at1 15:15 Second set of blood cultures drawn by ED staff. sv 15:21 Chest Single View XRAY In Process Unspecified. EDMS 16:[address] via stretcher. sj 16:23 Karie Lewis, RN is Primary Nurse. sv 16:27 CT Chest Abdomen Pelvis W/O Contrast In Process Unspecified. EDMS 17:55 contacted [facility] in attempt to transfer pt to [facility] per pt request, pt was bd denied, hospital has no urology director telecommunications. 20:53 Repositioned patient. Cleaned of incontinence. Linen changed. tl1 20:58 No provider procedures requiring assistance completed. Patient transferred, IV remains tl1 in place. Administered Medications: 15:18 Drug: Zosyn 3.375 grams Route: IVPB; Infused Over: 60 mins; Site: PICC; sv 16:15 Follow up: Response: No adverse reaction; IV Status: Completed infusion; IV Intake: sv 100ml 15:19 Drug: NS 0.9% (30 ml/kg) 30 ml/kg Route: IV; Rate: bolus; Site: PICC; sv 16:15 Follow up: Response: No adverse reaction; IV Status: Completed infusion; IV Intake: sv 1380ml 19:38 Drug: NS 0.9% 1000 ml Route: IV; Rate: 125 ml/hr; Site: right upper arm; tl1 20:55 Follow up: IV Status: Infusion continued upon transfer tl1 19:59 Drug: vancoMYCIN 1 grams Route: IVPB; Infused Over: 2 hrs; Site: right upper arm; tl1 20:54 Follow up: IV Status: Infusion continued upon transfer tl1 Intake: 16:15 IV: 100ml; Total: 100ml. sv 16:15 IV: 1380ml; Total: 1480ml. sv Outcome: 19:35 ER care complete, transfer ordered by . 20:58 Transferred by ground EMS to [facility], Transfer form completed. X-rays sent tl1 w/ patient. 20:58 Condition: stable 20:58 Instructed on the need for transfer. 21:09 Patient left the ED. tl1 Signatures: Dispatcher [employer] EDOH Deanna Cordero Stephanie, RN RN Martine Stevens Shelby, RN RN ss Nicole Angeles, line palletizer EKG Tat1 Amada Dela Cruz RN RN tl1 Karie Lewis RN RN Evens Al MD MD Corrections: (The following items were deleted from the chart) 15:09 15:00 Presenting complaint: EMS states: Called out for tachycardia and decreased ss appetite x "a few days". Pt recently had a bowel resection and Head catheter placed. Pt is awake and alert, but has a history of CP and is non verbal. Urine is cloudy, and patient has a stage II sacral decubitus ulcer. ss
[2018-06-17] MEDS ORDERED: VANCOMYCIN 1 GM/250 ML BAG ONE (20:03)
[2018-06-17] MEDS ORDERED: FENTANYL CITR 100 MCG/2 ML ONE (20:38)
== END 2018-06-17 21:09 ==
LOC: ER 15:00
DX: A41.9 Sepsis, unspecified organism (principal); J18.1 Lobar pneumonia, unspecified organism; R65.20 Severe sepsis without septic shock; R94.31 Abnormal electrocardiogram [ECG] [EKG]; G80.9 Cerebral palsy, unspecified; F41.8 Other specified anxiety disorders; G40.909 Epilepsy, unspecified, not intractable, without status epilepticus; K21.9 Gastro-esophageal reflux disease without esophagitis; E78.00 Pure hypercholesterolemia, unspecified; I10 Essential (primary) hypertension
CPT/HCPCS: 36415; 71045; 71250; 74176; 80048; 80076; 82550; 82962; 83605; 83690; 84145; 84484; 85025; 85610; 87040 ×2; 93005; 99285; J2543; J3010; J3370; J7030